=== PATIENT | female | born 1960 | race Caucasian/White ===

== ENCOUNTER 2017-03-04 16:54 | Inpatient (IN) | payer OTHER ==
[~2017-03-04] VITALS: Ht 158.8 cm; Wt 114.8 kg
[2017-03-04] MEDS ORDERED: METHYLPREDNISOLONE 125 MG VIAL IV STA (17:09)
[2017-03-04] MEDS ORDERED: LEVAQUIN 750MG / 150ML D5W IV STA (17:09)
[2017-03-04] MEDS ORDERED: SODIUM CHLORIDE 0.9% 1000ML 2,000 ML IV STA (17:09)
[2017-03-04] MEDS ORDERED: ALBUT/IPRATROP 3MG/0.5MG NEB 3 ML VIAL INH ONE (17:15)
[2017-03-04 18:16] LABS: BASO % 0.3 %; BASO ABS # 0.04 K/uL (0-0.2); COMPLETE YES; EOS % 1.3 %; HEMATOCRIT 42.7 % (37-47); IG% 0.2 %; LYMPH % 19.2 %; LYMPH ABS # 2.23 K/uL (1.2-3.4); MEAN CELL VOLUME 85.6 fL (80-100); MEAN CORPUSCULAR HEMOGLOBIN 27.7 pg (25-34); MEAN CORPUSCULAR HGB CONC 32.3 g/dl (32-36); MEAN PLATELET VOLUME 9.7 fL (7.4-10.4); MONO % 5.9 %; NEUT % 73.1 %; PLATELET COUNT 330 K/uL (130-400); RED BLOOD COUNT 4.99 M/uL (4.2-5.4); WHITE BLOOD COUNT 11.61 K/uL (4.8-10.8)
[2017-03-04 18:22] VITALS: PULSE 105; O2SAT 95
[2017-03-04 18:25] LABS: ALLEN TEST POS (POS); ARTERIAL BLD GAS O2 SATURATION 95.5 % (90-95); ARTERIAL BLOOD GAS BASE EXCESS 7.7 mEq/L (-9-1.8); ARTERIAL BLOOD GAS HCO3 35 mmol/L (19-24); ARTERIAL BLOOD GAS PO2 84 mm/Hg (80-95); ARTERIAL BLOOD GAS pH 7.39 (7.35-7.45); O2 ADMINISTRATION 3.5L
[2017-03-04 18:26] LABS: PARTIAL THROMBOPLASTIN RATIO 1.1; PROTHROMBIN TIME (PATIENT) 10.4 SECONDS (9.0-12.0)
[2017-03-04 18:35] LABS: ALT/SGPT 26 U/L (12-78); AST/SGOT 9 U/L (15-37); BLOOD UREA NITROGEN 14 mg/dl (7-18); BUN/CREATININE RATIO 21.6 (10-20); CALCIUM 9.3 mg/dl (8.5-10.1); CARBON DIOXIDE 37 mmol/L (21-32); CHLORIDE 96 mmol/L (98-107); CREATININE 0.63 mg/dl (0.60-1.20); GLUCOSE 103 mg/dl (70-99); POTASSIUM 4.2 mmol/L (3.5-5.1); SODIUM 139 mmol/L (136-145)
[2017-03-04 18:40] LABS: ALKALINE PHOSPHATASE 100 U/L (45-117); CKMB/CK RATIO 1.8 (0-3.0)
--- NOTE | 2017-03-04 19:05 | DIAGNOSTIC IMAGING REPORT ---
CHEST 2 VIEWS ROUTINE CLINICAL HISTORY: Dyspnea. Respiratory distress. COMPARISON STUDY: No previous studies for comparison. FINDINGS: There is no pneumothorax or pleural effusion. Linear mediastinal lucencies could reflect pneumomediastinum. There is mild asymmetric right lung airspace opacity. Mild to moderate enlargement of the cardiac silhouette is noted. IMPRESSION: 1. Mild asymmetric right lung airspace opacity. This favors an infectious process although asymmetric pulmonary edema could appear similar. 2. Linear mediastinal lucencies. This could reflect artifact or pneumomediastinum. A chest CT is recommended. 3. Mild to moderate enlargement of the cardiac silhouette. Electronically signed by: Cheng Joy M.D. 03/04/2017 7:03 PM Dictated Date/Time: 03/04/2017 6:58 PM
--- NOTE | 2017-03-04 19:54 | EMERGENCY ROOM VISIT NOTE ---
History Report prepared by Trevor: Jayesh Magallanes Under the Supervision of: Dr. Chacho Restrepo D.O. First contact with patient: 17:04 Chief Complaint: RESPIRATORY PROBLEMS Stated Complaint: SHORT OF BREATH, LOW PULSE OX, CAREWORK REFER History of Present Illness The patient is a 56 year old female who presents to the Emergency Room with complaints of persistent shortness of breath beginning four days ago. She reports she has been hospitalized twice before for pneumonia, and notes she currently feels like when she had pneumonia in the past. She has had a productive cough with dark green mucus, and notes having bursitis in her left hip for which she just received a cortisone shot, but denies having any recent fevers or nausea. The patient does not use supplemental oxygen at home. The patient notes the last time she was hospitalized for pneumonia, she was septic. She is a former smoker, and quit smoking 4 years ago. She notes she has diabetes. She notes she has not eaten in 12 hours because she is too tired. The patient denies having any history of heart failure. Source of History: patient Onset: 4 days ago Position: other (lungs) Quality: other (shortness of breath) Timing: other (persistent) Associated Symptoms: + cough, + fatigue, No fevers, No nausea Review of Systems See HPI for pertinent positives & negatives. A total of 10 systems reviewed and were otherwise negative. Past Medical & Surgical Medical Problems: (1) History of diabetes mellitus Family History No pertinent family history stated. Social History Smoking Status: Former Smoker Marital Status: Allergies Coded Allergies: Amoxicillin (Verified Allergy, Unknown, DIARRHEA, HIVES, 03/04/17) Clavulanic Acid (Verified Allergy, Unknown, DIARRHEA, HIVES, 03/04/17) Codeine (Verified Allergy, Unknown, HIVES, 03/04/17) Morphine (Verified Allergy, Unknown, hives, 03/04/17) Penicillins (Verified Allergy, Unknown, HIVES, 03/04/17) Physical Exam Vital Signs Date Time Temp Pulse Resp B/P Pulse Ox O2 Delivery O2 Flow Rate FiO2 03/04/17 19:00 102 20 124/83 93 Nasal Cannula 4.0 03/04/17 18:22 105 16 95 Nasal Cannula 3.5 03/04/17 18:16 104 20 112/72 95 Room Air 03/04/17 17:43 95 Nasal Cannula 4.0 03/04/17 17:39 95 Nasal Cannula 4.0 03/04/17 17:32 103 03/04/17 16:59 37.0 102 24 134/81 82 Room Air Physical Exam CONSTITUTIONAL/VITAL SIGNS: Reviewed / noted above. GENERAL: Non-toxic in appearance. INTEGUMENTARY: Warm, dry, and [place]. HEAD: Normocephalic. EYES: without scleral icterus or trauma. ENT/OROPHARYNX: clear and moist. LYMPHADENOPATHY/NECK: Is supple without lymphadenopathy or meningismus. RESPIRATORY: Lungs reveal diminished breath sounds bilaterally with expiratory wheezing. Mild increased work of breathing. CARDIOVASCULAR: Regular rate and rhythm. GI/ABDOMEN: Soft and nontender. No organomegaly or pulsatile mass. No rebound or guarding. Normal bowel sounds. EXTREMITIES: Warm and well perfused. BACK: No CVA tenderness. NEUROLOGICAL: Intact without focal deficits. PSYCHIATRIC: normal affect. MUSCULOSKELETAL: Normally developed with good muscle tone. TRIAGE NURSING DOCUMENTATION REVIEWED. Medical Decision & Procedures ER Provider Diagnostic Interpretation: Radiology results as stated below per my review and radiologist interpretation: CHEST 2 VIEWS ROUTINE FINDINGS: There is no pneumothorax or pleural effusion. Linear mediastinal lucencies could reflect pneumomediastinum. There is mild asymmetric right lung airspace opacity. Mild to moderate enlargement of the cardiac silhouette is noted. IMPRESSION: 1. Mild asymmetric right lung airspace opacity. This favors an infectious process although asymmetric pulmonary edema could appear similar. 2. Linear mediastinal lucencies. This could reflect artifact or pneumomediastinum. A chest CT is recommended. 3. Mild to moderate enlargement of the cardiac silhouette. Electronically signed by: Cheng Joy M.D. 03/04/2017 7:03 PM Dictated Date/Time: 03/04/2017 6:58 PM Laboratory Results 03/04/17 17:25 Red Blood Count 4.99, Mean Corpuscular Volume 85.6, Mean Corpuscular Hemoglobin 27.7, Mean Corpuscular Hemoglobin Concent 32.3, Mean Platelet Volume 9.7, Neutrophils (%) (Auto) 73.1, Lymphocytes (%) (Auto) 19.2, Monocytes (%) (Auto) 5.9, Eosinophils (%) (Auto) 1.3, Basophils (%) (Auto) 0.3, Neutrophils # (Auto) 8.49, Lymphocytes # (Auto) 2.23, Monocytes # (Auto) 0.68, Eosinophils # (Auto) 0.15, Basophils # (Auto) 0.04 03/04/17 17:25 Test 03/04/17 17:25 03/04/17 18:17 White Blood Count 11.61 K/uL (4.8-10.8) Red Blood Count 4.99 M/uL (4.2-5.4) Hemoglobin 13.8 g/dL (12.0-16.0) Hematocrit 42.7 % (37-47) Mean Corpuscular Volume 85.6 fL (80-100) Mean Corpuscular Hemoglobin 27.7 pg (25-34) Mean Corpuscular Hemoglobin Concent 32.3 g/dl (32-36) Platelet Count 330 K/uL (130-400) Mean Platelet Volume 9.7 fL (7.4-10.4) Neutrophils (%) (Auto) 73.1 % Lymphocytes (%) (Auto) 19.2 % Monocytes (%) (Auto) 5.9 % Eosinophils (%) (Auto) 1.3 % Basophils (%) (Auto) 0.3 % Neutrophils # (Auto) 8.49 K/uL (1.4-6.5) Lymphocytes # (Auto) 2.23 K/uL (1.2-3.4) Monocytes # (Auto) 0.68 K/uL (0.11-0.59) Eosinophils # (Auto) 0.15 K/uL (0-0.5) Basophils # (Auto) 0.04 K/uL (0-0.2) RDW Standard Deviation 45.7 fL (36.4-46.3) RDW Coefficient of Variation 14.6 % (11.5-14.5) Immature Granulocyte % (Auto) 0.2 % Immature Granulocyte # (Auto) 0.02 K/uL (0.00-0.02) Prothrombin Time 10.4 SECONDS (9.0-12.0) Prothromb Time International Ratio 1.0 (0.9-1.1) Activated Partial Thromboplast Time 27.6 SECONDS (21.0-31.0) Partial Thromboplastin Ratio 1.1 Anion Gap 6.0 mmol/L (3-11) Estimated GFR () 117.9 Estimated GFR (Non- 101.7 BUN/Creatinine Ratio 21.6 (10-20) Calcium Level 9.3 mg/dl (8.5-10.1) Total Bilirubin 0.4 mg/dl (0.2-1) Aspartate Amino Transf (AST/SGOT) 9 U/L (15-37) Alanine Aminotransferase (ALT/SGPT) 26 U/L (12-78) Alkaline Phosphatase 100 U/L (45-117) Total Creatine Kinase 55 U/L (26-192) Creatine Kinase MB 1.0 ng/ml (0.5-3.6) Creatine Kinase MB Ratio 1.8 (0-3.0) Troponin I < 0.015 ng/ml (0-0.045) Total Protein 6.7 gm/dl (6.4-8.2) Albumin 3.3 gm/dl (3.4-5.0) Globulin 3.4 gm/dl (2.5-4.0) Albumin/Globulin Ratio 1.0 (0.9-2) Arterial Blood pH 7.39 (7.35-7.45) Arterial Blood Partial Pressure CO2 59 mmHg (35-46) Arterial Blood Partial Pressure O2 84 mm/Hg (80-95) Arterial Blood HCO3 35 mmol/L (19-24) Arterial Blood Oxygen Saturation 95.5 % (90-95) Arterial Blood Base Excess 7.7 mEq/L (-9-1.8) Arterial Blood Gas Delivery 3.5L Hayden Test POS (POS) Laboratory results as stated above per my review. Medications Administered Medications (Trade) Dose Ordered Sig/Uriel Route Start Time Stop Time Status Last Admin Dose Admin Albuterol/ Ipratropium (Duoneb) 12 ml ONE ONCE INH 03/04/17 17:15 03/04/17 17:16 DC 03/04/17 18:15 12 ML Levofloxacin (Levaquin / D5W) 750 mg NOW STAT IV 03/04/17 17:09 03/04/17 17:11 DC 03/04/17 17:38 750 MG Methylprednisolone Sodium Succinate 125 mg 125 mg NOW STAT IV 03/04/17 17:09 03/04/17 17:11 DC 03/04/17 17:38 125 MG Sodium Chloride (Nss 1000ml) 2,000 ml @ 999 mls/hr Q2H1M STAT IV 03/04/17 17:09 03/04/17 19:09 DC 03/04/17 17:38 999 MLS/HR ECG Indication: SOB/dyspnea Rate (beats per minute): 100 Rhythm: sinus rhythm Findings: no acute ischemic change, no ectopy ED Course 1703: Previous medical records were reviewed. The patient was evaluated in room A10. A complete history and physical examination was performed. 1708: Ordered NSS 2,000 ml @ 999 mls/hr IV, Solu-Medrol IV 125 mg IV, and Levofloxacin 750 mg IV. 1714: Ordered Duoneb 12 ml INH. 1929: Discussed the patient's case with Dr. Patel. The patient will be evaluated for further treatment and disposition. Medical Decision the differential was considered includes acute myocardial infarction, acute coronary syndrome, myocarditis, pericarditis, pericardial effusions /tamponad, esophageal perforation, pulmonary embolism, pneumonia, pneumothorax, cardiomyopathy, congestive heart, anemia , COPD/asthma exacerbation. This is a 56-year-old female who presents to the ED with a chief complaint of shortness of breath. The patient states that she has had cough and shortness of breath for the past 4 days. She has been coughing up some dark green mucus. She states that it feels similar to when she has had pneumonia. The patient was seen at [facility] and sent here for further evaluation. Pulse ox here was 86% on room air. The patient's exam reveals mild increased work of breathing as well as diminished breath sounds bilaterally and some expiratory wheezing. She is not febrile. Vital signs are otherwise stable. Chest x-ray suggests a right-sided pneumonia. White blood cell count was 11.6. Other blood work was unremarkable. ABG reveals a normal acid base status. There is some CO2 retention. Oxygen saturations were adequate on 3.5 L. The patient was treated with a one hour nebulizer treatment as well as IV Levaquin. She was given IV steroids. She was given some IV fluids. Clinically there is not congestive heart failure or pulmonary edema. I spoke with the hospice, who will see the patient for further inpatient evaluation. Consults Time Called: 1919 Consulting Physician: Bhaskar Moulton Returned Call: [phone] Discussed the patient's case with Dr. Patel. The patient will be evaluated for further treatment and disposition. Impression Primary Impression: PNA (pneumonia) Additional Impressions: COPD (chronic obstructive pulmonary disease) Hypoxia Scribe Attestation The scribe's documentation has been prepared under my direction and personally reviewed by me in its entirety. I confirm that the note above accurately reflects all work, treatment, procedures, and medical decision making performed by me. Departure Information Dispostion Being Evaluated By Hospitalist Referrals Melanie Leavitt D.O. (PCP) Patient Instructions [facility] Problem Qualifiers
[2017-03-04] MEDS ORDERED: INSU70IN2 SC (20:09)
[2017-03-04] MEDS ORDERED: DULO-24 PO (20:09)
[2017-03-04] MEDS ORDERED: DULO60CA44 PO (20:09)
[2017-03-04] MEDS ORDERED: CYCL5TAB PO (20:10)
[2017-03-04] MEDS ORDERED: CLON2TAB3 PO (20:10)
--- NOTE | 2017-03-04 20:41 | History and Physical ---
History & Physical Date & Time of Service: Mar 04, 2017 at 20:11 Chief Complaint: Short Of Breath, Low Pulse Ox, Carework Refer Primary Care Physician: Melanie Leavitt D.O. History of Present Illness Source: patient, spouse, clinic records, hospital records 56 year old female with PMH of DM Type 2, fibromyalgia, Depression was sent to the ER after seeing her PCP today for worsening SOB. Pt said that for the last few days she has been having SOB associated with dark greenish productive cough. Pt said that she does have some chest wall tenderness when coughing. She said that the last she had pneumonia was 2 yrs ago. she denies any palpitation, dizziness, diarrhea, fever and chills. she quits smoking about 4 yrs ago. Past Medical/Surgical History DM Type 2 Fibromyalgia Obesity depression PTSD Social History Smoking Status: Former Smoker Alcohol Use: none Drug Use: none Marital Status: Allergies Coded Allergies: Amoxicillin (Verified Allergy, Unknown, DIARRHEA, HIVES, 03/04/17) Clavulanic Acid (Verified Allergy, Unknown, DIARRHEA, HIVES, 03/04/17) Codeine (Verified Allergy, Unknown, HIVES, 03/04/17) Morphine (Verified Allergy, Unknown, hives, 03/04/17) Penicillins (Verified Allergy, Unknown, HIVES, 03/04/17) Home Medications Scheduled Albuterol Sulfate (Proair Respiclick), 2 PUFF INH QID Aripiprazole (Abilify), 1 TAB PO QAM Beclomethasone Dip (Qvar), 2 PUFF INH BID Cyclobenzaprine Hcl (Flexeril), 10 MG PO HS Duloxetine HCl (Cymbalta), 80 MG PO QAM Duloxetine Hcl (Cymbalta), 60 MG PO HS Insulin Human Isophan/Regular (Novolin 70/30), 90 UNITS SC BID Lamotrigine (Lamictal), 50 MG PO DAILY Lisinopril (Lisinopril), 20 MG PO DAILY Metformin HCl (Metformin HCl), 1,000 MG PO BID Pioglitazone (Actos), 0.5 TAB PO DAILY Pravastatin (Pravachol ), 40 MG PO DAILY Scheduled PRN Clonazepam (Klonopin), 1 MG PO HS PRN for Insomnia Cyproheptadine Hcl (Periactin), 4 MG PO TID PRN for Agitation Review of Systems Constitutional: + fatigue, No fever, No sweats Eyes: No eye pain, No worsening of vision ENT: No nasal symptoms, No sore throat Respiratory: + cough, + shortness of breath, + sputum, + wheezing Cardiovascular: No claudication, No edema, No palpitations Abdomen: No diarrhea, No nausea, No pain, No vomiting Musculoskeletal: + joint pain, No calf pain Genitourinary - Female: No dysuria, No urinary frequency, No urinary urgency Neurologic: No memory loss, No paralysis Psychiatric: No substance abuse Hematologic / Lymphatic: No night sweats Integumentary: No itch, No rash Physical Exam Vital Signs Date Time Temp Pulse Resp B/P Pulse Ox O2 Delivery O2 Flow Rate FiO2 03/04/17 19:00 102 20 124/83 93 Nasal Cannula 4.0 03/04/17 18:22 105 16 95 Nasal Cannula 3.5 03/04/17 18:16 104 20 112/72 95 Room Air 03/04/17 17:43 95 Nasal Cannula 4.0 03/04/17 17:39 95 Nasal Cannula 4.0 03/04/17 17:32 103 03/04/17 16:59 37.0 102 24 134/81 82 Room Air General Appearance: WD/WN, no apparent distress Head: normocephalic, atraumatic Eyes: PERRL, EOMI, sclerae normal ENT: normal ENT inspection, hearing grossly normal Neck: supple, no JVD Respiratory/Chest: no respiratory distress, no accessory muscle use, + wheezing Cardiovascular: no JVD, no murmur, + tachycardia Abdomen/GI: normal bowel sounds, non tender, soft Back: normal inspection, no CVA tenderness Extremities/Musculoskelatal: normal inspection, no calf tenderness, no pedal edema Neurologic/Psych: no motor/sensory deficits, alert, normal mood/affect, oriented x 3 Skin: normal color, warm/dry, no rash Diagnostics Laboratory Results Results Past 24 Hours Test 03/04/17 17:25 03/04/17 18:17 Range/Units White Blood Count 11.61 4.8-10.8 K/uL Red Blood Count 4.99 4.2-5.4 M/uL Hemoglobin 13.8 12.0-16.0 g/dL Hematocrit 42.7 37-47 % Mean Corpuscular Volume 85.6 80-100 fL Mean Corpuscular Hemoglobin 27.7 25-34 pg Mean Corpuscular Hemoglobin Concent 32.3 32-36 g/dl Platelet Count 330 130-400 K/uL Mean Platelet Volume 9.7 7.4-10.4 fL Neutrophils (%) (Auto) 73.1 % Lymphocytes (%) (Auto) 19.2 % Monocytes (%) (Auto) 5.9 % Eosinophils (%) (Auto) 1.3 % Basophils (%) (Auto) 0.3 % Neutrophils # (Auto) 8.49 1.4-6.5 K/uL Lymphocytes # (Auto) 2.23 1.2-3.4 K/uL Monocytes # (Auto) 0.68 0.11-0.59 K/uL Eosinophils # (Auto) 0.15 0-0.5 K/uL Basophils # (Auto) 0.04 0-0.2 K/uL RDW Standard Deviation 45.7 36.4-46.3 fL RDW Coefficient of Variation 14.6 11.5-14.5 % Immature Granulocyte % (Auto) 0.2 % Immature Granulocyte # (Auto) 0.02 0.00-0.02 K/uL Prothrombin Time 10.4 9.0-12.0 SECONDS Prothromb Time International Ratio 1.0 0.9-1.1 Activated Partial Thromboplast Time 27.6 21.0-31.0 SECONDS Partial Thromboplastin Ratio 1.1 Sodium Level 139 136-145 mmol/L Potassium Level 4.2 3.5-5.1 mmol/L Chloride Level 96 98-107 mmol/L Carbon Dioxide Level 37 21-32 mmol/L Anion Gap 6.0 3-11 mmol/L Blood Urea Nitrogen 14 7-18 mg/dl Creatinine 0.63 0.60-1.20 mg/dl Estimated GFR () 117.9 Estimated GFR (Non- 101.7 BUN/Creatinine Ratio 21.6 10-20 Random Glucose 103 70-99 mg/dl Calcium Level 9.3 8.5-10.1 mg/dl Total Bilirubin 0.4 0.2-1 mg/dl Aspartate Amino Transf (AST/SGOT) 9 15-37 U/L Alanine Aminotransferase (ALT/SGPT) 26 12-78 U/L Alkaline Phosphatase 100 45-117 U/L Total Creatine Kinase 55 26-192 U/L Creatine Kinase MB 1.0 0.5-3.6 ng/ml Creatine Kinase MB Ratio 1.8 0-3.0 Troponin I < 0.015 0-0.045 ng/ml Total Protein 6.7 6.4-8.2 gm/dl Albumin 3.3 3.4-5.0 gm/dl Globulin 3.4 2.5-4.0 gm/dl Albumin/Globulin Ratio 1.0 0.9-2 Arterial Blood pH 7.39 7.35-7.45 Arterial Blood Partial Pressure CO2 59 35-46 mmHg Arterial Blood Partial Pressure O2 84 80-95 mm/Hg Arterial Blood HCO3 35 19-24 mmol/L Arterial Blood Oxygen Saturation 95.5 90-95 % Arterial Blood Base Excess 7.7 -9-1.8 mEq/L Arterial Blood Gas Delivery 3.5L Hayden Test POS POS Microbiology Results 03/04/17 Blood Culture, Received Pending 03/04/17 Blood Culture, Received Pending Diagnostic Radiology CHEST 2 VIEWS ROUTINE CLINICAL HISTORY: Dyspnea. Respiratory distress. COMPARISON STUDY: No previous studies for comparison. FINDINGS: There is no pneumothorax or pleural effusion. Linear mediastinal lucencies could reflect pneumomediastinum. There is mild asymmetric right lung airspace opacity. Mild to moderate enlargement of the cardiac silhouette is noted. IMPRESSION: 1. Mild asymmetric right lung airspace opacity. This favors an infectious process although asymmetric pulmonary edema could appear similar. 2. Linear mediastinal lucencies. This could reflect artifact or pneumomediastinum. A chest CT is recommended. 3. Mild to moderate enlargement of the cardiac silhouette. Electronically signed by: Cheng Joy M.D. 03/04/2017 7:03 PM Impression Assessment and Plan Worsening SOB associated with dark greenish productive cough possible related to pneumonia vs bronchitis CXR showed Mild asymmetric right lung airspace opacity Received Levaquin 750 mg and Solumedrol in The ER will continue levaquin 750 mg IV will start prednisone 40 mg BID continue oxygen supplement Duoneb for respiratory treatment adding Guaifenesin for the cough will check for flu DM Type 2 Recent Hba1c 10.5 (12/23/16) Uncontrolled DM will hold oral med On NPH 70/30 Insulin coverage pharmacy consult for glycemic control Depression continue current home meds stable Fibromyalgia continue Cymbalta and Flexeril Insomnia Continue clonazepam prn DVT px on Lovenox subq CODE STATUS FULL CODE Level of Care Med/Surg Resuscitation Status FULL RESUSCITATION VTE Prophylaxis VTE Risk Assessment Done? Y/N: Yes Risk Level: Moderate Given or contraindicated: Enoxaparin (Lovenox)SQ Additional Copies To Melanie Leavitt D.O.
[2017-03-04 20:45] VITALS: BP 125/76; PULSE 108; TEMP 36.3; O2SAT 94; Ht 158.8 cm; Wt 114.8 kg
[2017-03-04] MEDS ORDERED: CLONAZEPAM 1 MG TAB PO PRN (21:00)
[2017-03-04] MEDS ORDERED: CYPR4TAB31 PO (21:02)
[2017-03-04] MEDS ORDERED: PRAV20TA PO (21:03)
[2017-03-04] MEDS ORDERED: ARIP30TA3 PO (21:04)
[2017-03-04] MEDS ORDERED: ACT30 PO (21:05)
[2017-03-04] MEDS ORDERED: LSN20 PO (21:07)
[2017-03-04] MEDS ORDERED: QVRINH80 INH (21:07)
[2017-03-04] MEDS ORDERED: ALBU18002 INH (21:08)
[2017-03-04] MEDS ORDERED: GLC500 PO (21:09)
[2017-03-04] MEDS ORDERED: LAMO25TA PO (21:10)
[2017-03-04] MEDS ORDERED: GLUCAGON FOR INJ 1 MG VIAL SQ PRN (21:30)
[2017-03-04] MEDS ORDERED: GLUCOSE 40% GEL 15 GM TUBE PO PRN (21:30)
[2017-03-04] MEDS ORDERED: GLUCOSE 10 TABS/TUBE PO PRN (21:30)
[2017-03-04] MEDS ORDERED: DEXTROSE 50% 50 ML SYR IV PRN (21:30)
[2017-03-04] MEDS ORDERED: PHARMACY GLYCEMIC MGMT CONSULT PRN (21:35)
--- NOTE | 2017-03-04 22:04 | Pharmacy Progress Note ---
Glycemic Control Intl Consult Date of Service Mar 04, 2017. Scope Glycemic Pharmacist consulted by Dr Patel on 03/04/17 for glycemic control and to write orders per [facility] inpatient glycemic control protocol Objective Accuchecks BSG (last 24hrs): Test 03/04/17 17:25 Random Glucose 103 mg/dl (70-99) Laboratory Data (last 24hrs) Test 03/04/17 17:25 Anion Gap 6.0 mmol/L BUN/Creatinine Ratio 21.6 Blood Urea Nitrogen 14 mg/dl Creatinine 0.63 mg/dl Potassium Level 4.2 mmol/L Sodium Level 139 mmol/L White Blood Count 11.61 K/uL Red Blood Count 4.99 M/uL Hemoglobin 13.8 g/dL Hematocrit 42.7 % Mean Corpuscular Volume 85.6 fL Mean Corpuscular Hemoglobin 27.7 pg Mean Corpuscular Hemoglobin Concent 32.3 g/dl Platelet Count 330 K/uL Mean Platelet Volume 9.7 fL Neutrophils (%) (Auto) 73.1 % Lymphocytes (%) (Auto) 19.2 % Monocytes (%) (Auto) 5.9 % Eosinophils (%) (Auto) 1.3 % Basophils (%) (Auto) 0.3 % Neutrophils # (Auto) 8.49 K/uL Lymphocytes # (Auto) 2.23 K/uL Monocytes # (Auto) 0.68 K/uL Eosinophils # (Auto) 0.15 K/uL Basophils # (Auto) 0.04 K/uL Recent Pertinent Medications Outpatient Anti-diabetic Regimen: * Supposedly, but cannot confirm as patient is a poor historian and unable to find records to confirm: * Novolin 70/30 90 units BID * Metformin 1000mg BID * Actos 15mg po daily * A1c = 10.5 % (12/23/16) per H&P Risk Factors for Insulin Resistance: * Steroids: Prednisone 40mg po BID * Infection: Levaquin 750mg IV q24 * Diet: Type II DM Assessment & Plan ASSESSMENT: * ADA & AACE recommend a goal blood sugar range 140-180 mg/dl for the majority of critically ill & non-critically ill patients. However, more stringent targets may be selected in individual cases. * Patient is a poor historian, unable to obtain reliable information from her and also unable to find records. She is supposedly on a very high dose of insulin as an outpatient. * Blood glucose of 228 was taken after patient just finished eating her dinner. It was previously 103 earlier this afternoon. Unable to safely initiate basal insulin at this time. Therefore, will frequently check blood glucose and correct with Novolog for now only with weight-based dosing. PLAN FOR INPATIENT GLYCEMIC CONTROL: * Correctional Insulin with NOVOLOG / REGULAR per scale ACHS or Q6hrs while NPO * Goal Range: Low 140 mg/dL - High 180 mg/dL * Correction Factor: 20 mg/dL/unit * Nutritional / Prandial insulin per carb ratio of 1 unit per 7 grams CHO consumed * Please note that the plan above was derived based on current level of insulin resistance and hospital stress. These recommendations are appropriate for inpatient admission only. Plan of care upon discharge will need to be reassessed to avoid potential outpatient hypo/hyperglycemia. Thank you.
[2017-03-04] MEDS: DULOXETINE HCL 60 MG CAP PO SCH ×2 (22:14→23:56)
[2017-03-04] MEDS: CYCLOBENZAPRINE HCL 10 MG TAB PO SCH ×2 (22:15→23:57)
[2017-03-04] MEDS: PATIENT'S HEIGHT AND/OR WEIGHT NEEDED SCH ×2 (22:16→23:52)
[2017-03-04] MEDS: BECLOMETHASONE DIP HFA 80 MCG 8.7G INH INH SCH (22:16)
[2017-03-04] MEDS: INSULIN ASPART 100 UNITS/ML 3 ML PEN SC SCH (22:18)
[2017-03-04] MEDS: CLONAZEPAM 1 MG TAB PO PRN (23:07)
[2017-03-04 23:08] VITALS: PULSE 103; O2SAT 95
[2017-03-04] MEDS: ALBUT/IPRATROP 3MG/0.5MG NEB 3 ML VIAL INH SCH (23:08)
[2017-03-04 23:45] VITALS: BP 148/90; PULSE 109; TEMP 37; O2SAT 93
[2017-03-05] VITALS (9 sets, daily range): BP systolic 142–148; BP diastolic 78–82; PULSE 103–110; TEMP 36.7–36.8; O2SAT 91–95
[2017-03-05 00:40] LABS: INFLUENZA A PCR Neg for Influ A (NEG); INFLUENZA B PCR Neg for Influ B (NEG)
[2017-03-05] MEDS ORDERED: INSULIN ASPART 100 UNITS/ML 3 ML PEN SC SCH (03:00)
[2017-03-05 06:50] LABS: HEMATOCRIT 43.8 % (37-47); MEAN CELL VOLUME 87.1 fL (80-100); MEAN CORPUSCULAR HEMOGLOBIN 28.6 pg (25-34); MEAN CORPUSCULAR HGB CONC 32.9 g/dl (32-36); MEAN PLATELET VOLUME 10.2 fL (7.4-10.4); PLATELET COUNT 330 K/uL (130-400); RED BLOOD COUNT 5.03 M/uL (4.2-5.4); WHITE BLOOD COUNT 12.46 K/uL (4.8-10.8)
[2017-03-05 07:26] LABS: BUN/CREATININE RATIO 19.9 (10-20); CALCIUM 9.2 mg/dl (8.5-10.1); CREATININE 0.75 mg/dl (0.60-1.20); POTASSIUM 4.6 mmol/L (3.5-5.1)
[2017-03-05] MEDS: ALBUT/IPRATROP 3MG/0.5MG NEB 3 ML VIAL INH SCH ×4 (07:38→19:30)
[2017-03-05] MEDS ORDERED: INSULIN HUMAN 70% NPH/30% REGULAR SC SCH (08:00)
[2017-03-05] MEDS ORDERED: PNEUMOCOCCAL ADMINISTRATION CHARGE ONE (08:00)
[2017-03-05] MEDS ORDERED: PNEUMOCOCCAL POLYSACCHARIDES 25 MCG/0.5 ML VIAL/SYR IM. ONE (08:00)
[2017-03-05] MEDS: DULOXETINE HCL 20 MG CAP PO SCH (08:47)
[2017-03-05] MEDS: PRAVASTATIN SOD 20 MG TAB PO SCH (08:48)
[2017-03-05] MEDS: GUAIFENESIN 200 MG TAB PO PRN (08:49)
[2017-03-05] MEDS: ENOXAPARIN 40 MG/0.4 ML SYR SQ SCH (08:49)
[2017-03-05] MEDS: ARIPIprazole TAB 15 MG TAB PO SCH (08:50)
[2017-03-05] MEDS: LISINOPRIL 20 MG TAB PO SCH (08:50)
[2017-03-05] MEDS: BECLOMETHASONE DIP HFA 80 MCG 8.7G INH INH SCH ×2 (08:51→20:11)
[2017-03-05] MEDS: INSULIN ASPART 100 UNITS/ML 3 ML PEN SC SCH ×5 (09:01→23:47)
[2017-03-05] MEDS: INSULIN GLARGINE SOLOSTAR 100 UNITS/ML 3 ML PEN SC SCH ×2 (09:02→20:17)
[2017-03-05] MEDS ORDERED: INSULIN REGULAR 6 UNITS in SYRINGE 5.94 ML IV SCH (12:00)
[2017-03-05] MEDS ORDERED: INSULIN GLARGINE SOLOSTAR 100 UNITS/ML 3 ML PEN SC SCH (12:00)
--- NOTE | 2017-03-05 12:17 | Pharmacy Progress Note ---
Glycemic Control: Progress Nt Date of Service Mar 05, 2017. Scope Glycemic Pharmacist consulted by Dr Patel on 03/04/17 for glycemic control and to write orders per [facility] inpatient glycemic control protocol. Objective Accuchecks BSG (last 24hrs): Test 03/04/17 17:25 03/04/17 21:46 03/05/17 03:21 03/05/17 06:20 Random Glucose 103 mg/dl (70-99) 297 mg/dl (70-99) Bedside Glucose 228 mg/dl (70-90) 271 mg/dl (70-90) Test 03/05/17 08:02 03/05/17 11:34 Bedside Glucose 294 mg/dl (70-90) 368 mg/dl (70-90) Laboratory Data (last 24hrs) Test 03/04/17 17:25 03/05/17 06:20 Anion Gap 6.0 mmol/L 7.0 mmol/L BUN/Creatinine Ratio 21.6 19.9 Blood Urea Nitrogen 14 mg/dl 15 mg/dl Creatinine 0.63 mg/dl 0.75 mg/dl Potassium Level 4.2 mmol/L 4.6 mmol/L Sodium Level 139 mmol/L 138 mmol/L White Blood Count 11.61 K/uL 12.46 K/uL Red Blood Count 4.99 M/uL Hemoglobin 13.8 g/dL Hematocrit 42.7 % Mean Corpuscular Volume 85.6 fL Mean Corpuscular Hemoglobin 27.7 pg Mean Corpuscular Hemoglobin Concent 32.3 g/dl Platelet Count 330 K/uL Mean Platelet Volume 9.7 fL Neutrophils (%) (Auto) 73.1 % Lymphocytes (%) (Auto) 19.2 % Monocytes (%) (Auto) 5.9 % Eosinophils (%) (Auto) 1.3 % Basophils (%) (Auto) 0.3 % Neutrophils # (Auto) 8.49 K/uL Lymphocytes # (Auto) 2.23 K/uL Monocytes # (Auto) 0.68 K/uL Eosinophils # (Auto) 0.15 K/uL Basophils # (Auto) 0.04 K/uL Recent Pertinent Medications Outpatient Anti-diabetic Regimen: * Novolin 70/30 mixed insulin * 90 units SQ BID with meals * Metformin 1000mg PO BID * Actos 15mg PO daily * A1c = 10.5 % (12/23/16) per H&P The patient is currently receiving: * Basal insulin: none ordered * Correctional Insulin: NovoLog Correction per scale AC+HS+03 Goal Range: Low 140 mg/dL - High 180 mg/dL Correction Factor: 20 mg/dL/unit * Prandial insulin: Per carb ratio of 1 unit per 7 grams CHO consumed * Oral Agents: held on admission Risk Factors for Insulin Resistance: * Steroids: Solu-Medrol 125mg IV x1 dose in ED on 03/04, then Prednisone 40mg PO BID * Infection: Levofloxacin IV - day #2 * Diet: T2DM Assessment & Plan ASSESSMENT: * ADA & AACE recommend a goal blood sugar range 140-180 mg/dl for the majority of critically ill & non-critically ill patients. However, more stringent targets may be selected in individual cases. 03/04/17 * Patient is a poor historian, unable to obtain reliable information from her and also unable to find records. She is supposedly on a very high dose of insulin as an outpatient. * Blood glucose of 228 was taken after patient just finished eating her dinner. It was previously 103 earlier this afternoon. Unable to safely initiate basal insulin at this time. Therefore, will frequently check blood glucose and correct with NovoLog for now only with weight-based dosing. 03/05/17 * Ms Reyes has become hyperglycemic secondary to basal deficiency, below optimal bolus insulin dosing, and Solu-Medrol dose in ED 03/04 * Insulin doses confirmed with Epic. * A1c shows poor glycemic control for patient's age * Will need to initiate basal insulin with Lantus. Base dosing off of total daily outpatient dose of ~180u/day * For acute severe hyperglycemia at pre-lunch Accu-check * give 0.05u/kg IV insulin bolus to augment NovoLog SQ * tighten NovoLog parameters - add overnight Accu-checks until hyperglycemia resolves * Titrate insulin regimen with each step down in steroid therapy PLAN FOR INPATIENT GLYCEMIC CONTROL: * Lantus 30 units SQ x1 given this AM * Give additional 10 units SQ x1 dose with lunch * Begin Lantus SQ BID this evening * 20 units if BSG Below 100mg/dL * 40 units if BSG is 100-140mg/dL * 45 units if BSG is above 140mg/dL * NovoLog SQ AC and HS * Add Accu-checks overnight at 00:00 and 04:00 * Goal Range: Low 140 mg/dL - High 180 mg/dL * Correction Factor: 12 mg/dL/unit * Carb ratio of 1 unit per 4 grams CHO consume * IV regular insulin 6 units X1 dose with lunch * A1c added to discharge instructions RECOMMENDATIONS FOR DISCHARGE: * awaited * Please note that the plan above was derived based on current level of insulin resistance and hospital stress. These recommendations are appropriate for inpatient admission only. Plan of care upon discharge will need to be reassessed to avoid potential outpatient hypo/hyperglycemia. Thank you.
--- NOTE | 2017-03-05 15:24 | Progress Note ---
Internal Med Progress Note Date of Service: Mar 05, 2017. Provider Documentation: SUBJECTIVE: resting comfortably still has sob and cough but says better than yesterday has left hip pain from bursitis afebrile no chest pain OBJECTIVE: Vital Signs-as noted below Exam: General-alert and awake and oriented. Morbidly obese ENT-normal hearing Neck-no neck masses Lungs-cta b/l no wheezing or crackles Heart-s1 and s2 heard regular rate and rhythm no murmurs Abdomen-soft bowel sounds present non tender no distension Extremities- no erythema no edema Neuro-alert and awake moves extremities Lab data as noted below. ASSESSMENT & PLAN: Worsening SOB Pneumonia on Levaquin and nbs hx of smoking has some wheezing on po steroids improving 'will continu same DM Type 2 Recent Hba1c 10.5 (12/23/16) Uncontrolled DM will hold oral med On NPH 70/30 Insulin coverage close monitor while on steroids pharmacy consult for glycemic control and appreciate inputs Left hip bursitis recent steroid shot didn't helped will consult ortho for any further recommendations. Depression continue current home meds stable Fibromyalgia continue Cymbalta and Flexeril Insomnia Continue clonazepam prn DVT px on Lovenox subq CODE STATUS FULL CODE DISPOSITION to be determined Vital Signs: Date Time Temp Pulse Resp B/P Pulse Ox O2 Delivery O2 Flow Rate FiO2 03/05/17 11:58 108 16 92 Nasal Cannula 3.0 03/05/17 08:00 92 Nasal Cannula 3.5 03/05/17 07:45 36.8 104 22 148/82 93 Nasal Cannula 3.5 03/05/17 07:38 103 16 93 Nasal Cannula 3.0 03/05/17 00:00 94 Nasal Cannula 4.0 03/04/17 23:45 37.0 109 20 148/90 93 3.0 03/04/17 23:08 103 20 95 Nasal Cannula 2.0 03/04/17 20:45 36.3 108 20 125/76 94 Nasal Cannula 4.0 03/04/17 20:33 106 15 132/83 93 03/04/17 19:00 102 20 124/83 93 Nasal Cannula 4.0 03/04/17 18:22 105 16 95 Nasal Cannula 3.5 03/04/17 18:16 104 20 112/72 95 Room Air 03/04/17 17:43 95 Nasal Cannula 4.0 03/04/17 17:39 95 Nasal Cannula 4.0 03/04/17 17:32 103 03/04/17 16:59 37.0 102 24 134/81 82 Room Air Lab Results: Results Past 24 Hours Test 03/04/17 17:25 03/04/17 18:17 03/04/17 21:46 03/04/17 22:35 Range/Units White Blood Count 11.61 4.8-10.8 K/uL Red Blood Count 4.99 4.2-5.4 M/uL Hemoglobin 13.8 12.0-16.0 g/dL Hematocrit 42.7 37-47 % Mean Corpuscular Volume 85.6 80-100 fL Mean Corpuscular Hemoglobin 27.7 25-34 pg Mean Corpuscular Hemoglobin Concent 32.3 32-36 g/dl Platelet Count 330 130-400 K/uL Mean Platelet Volume 9.7 7.4-10.4 fL Neutrophils (%) (Auto) 73.1 % Lymphocytes (%) (Auto) 19.2 % Monocytes (%) (Auto) 5.9 % Eosinophils (%) (Auto) 1.3 % Basophils (%) (Auto) 0.3 % Neutrophils # (Auto) 8.49 1.4-6.5 K/uL Lymphocytes # (Auto) 2.23 1.2-3.4 K/uL Monocytes # (Auto) 0.68 0.11-0.59 K/uL Eosinophils # (Auto) 0.15 0-0.5 K/uL Basophils # (Auto) 0.04 0-0.2 K/uL RDW Standard Deviation 45.7 36.4-46.3 fL RDW Coefficient of Variation 14.6 11.5-14.5 % Immature Granulocyte % (Auto) 0.2 % Immature Granulocyte # (Auto) 0.02 0.00-0.02 K/uL Prothrombin Time 10.4 9.0-12.0 SECONDS Prothromb Time International Ratio 1.0 0.9-1.1 Activated Partial Thromboplast Time 27.6 21.0-31.0 SECONDS Partial Thromboplastin Ratio 1.1 Sodium Level 139 136-145 mmol/L Potassium Level 4.2 3.5-5.1 mmol/L Chloride Level 96 98-107 mmol/L Carbon Dioxide Level 37 21-32 mmol/L Anion Gap 6.0 3-11 mmol/L Blood Urea Nitrogen 14 7-18 mg/dl Creatinine 0.63 0.60-1.20 mg/dl Estimated GFR () 117.9 Estimated GFR (Non- 101.7 BUN/Creatinine Ratio 21.6 10-20 Random Glucose 103 70-99 mg/dl Calcium Level 9.3 8.5-10.1 mg/dl Total Bilirubin 0.4 0.2-1 mg/dl Aspartate Amino Transf (AST/SGOT) 9 15-37 U/L Alanine Aminotransferase (ALT/SGPT) 26 12-78 U/L Alkaline Phosphatase 100 45-117 U/L Total Creatine Kinase 55 26-192 U/L Creatine Kinase MB 1.0 0.5-3.6 ng/ml Creatine Kinase MB Ratio 1.8 0-3.0 Troponin I < 0.015 0-0.045 ng/ml Total Protein 6.7 6.4-8.2 gm/dl Albumin 3.3 3.4-5.0 gm/dl Globulin 3.4 2.5-4.0 gm/dl Albumin/Globulin Ratio 1.0 0.9-2 Arterial Blood pH 7.39 7.35-7.45 Arterial Blood Partial Pressure CO2 59 35-46 mmHg Arterial Blood Partial Pressure O2 84 80-95 mm/Hg Arterial Blood HCO3 35 19-24 mmol/L Arterial Blood Oxygen Saturation 95.5 90-95 % Arterial Blood Base Excess 7.7 -9-1.8 mEq/L Arterial Blood Gas Delivery 3.5L Hayden Test POS POS Bedside Glucose 228 70-90 mg/dl Influenza Type A (RT-PCR) Neg for Influ A NEG Influenza Type B (RT-PCR) Neg for Influ B NEG Test 03/04/17 23:54 03/05/17 03:21 03/05/17 06:20 03/05/17 08:02 Range/Units Creatine Kinase MB 1.1 0.5-3.6 ng/ml Creatine Kinase MB Ratio 0-3.0 Troponin I < 0.015 0-0.045 ng/ml Bedside Glucose 271 294 70-90 mg/dl White Blood Count 12.46 4.8-10.8 K/uL Red Blood Count 5.03 4.2-5.4 M/uL Hemoglobin 14.4 12.0-16.0 g/dL Hematocrit 43.8 37-47 % Mean Corpuscular Volume 87.1 80-100 fL Mean Corpuscular Hemoglobin 28.6 25-34 pg Mean Corpuscular Hemoglobin Concent 32.9 32-36 g/dl RDW Standard Deviation 47.7 36.4-46.3 fL RDW Coefficient of Variation 14.9 11.5-14.5 % Platelet Count 330 130-400 K/uL Mean Platelet Volume 10.2 7.4-10.4 fL Sodium Level 138 136-145 mmol/L Potassium Level 4.6 3.5-5.1 mmol/L Chloride Level 101 98-107 mmol/L Carbon Dioxide Level 30 21-32 mmol/L Anion Gap 7.0 3-11 mmol/L Blood Urea Nitrogen 15 7-18 mg/dl Creatinine 0.75 0.60-1.20 mg/dl Est Creatinine Clear Calc Drug Dose 103.8 ml/min Estimated GFR () 104.7 Estimated GFR (Non- 90.4 BUN/Creatinine Ratio 19.9 10-20 Random Glucose 297 70-99 mg/dl Calcium Level 9.2 8.5-10.1 mg/dl Test 03/05/17 11:34 Range/Units Bedside Glucose 368 70-90 mg/dl Microbiology Results 03/04/17 Blood Culture, Received Pending 03/04/17 Blood Culture, Received Pending 03/05/17 Gram Stain - Final, Resulted 03/05/17 Sputum Culture, Resulted Pending
[2017-03-05] MEDS: LEVOFLOXACIN / D5W 750 MG in PREMIXED IN D5W 150 ML IV SCH (18:22)
[2017-03-05] MEDS: CYCLOBENZAPRINE HCL 10 MG TAB PO SCH (21:40)
[2017-03-05] MEDS: DULOXETINE HCL 60 MG CAP PO SCH (21:41)
[2017-03-05] MEDS ORDERED: CLONAZEPAM 1 MG TAB PO PRN (22:00)
[2017-03-05] MEDS: CLONAZEPAM 1 MG TAB PO PRN (23:18)
[2017-03-05] MEDS: CYPROHEPTADINE HCL 4 MG TAB PO PRN (23:19)
[2017-03-06] VITALS (8 sets, daily range): BP systolic 106–127; BP diastolic 64–79; PULSE 87–114; TEMP 36.4–36.8; O2SAT 90–96
[2017-03-06] MEDS: INSULIN ASPART 100 UNITS/ML 3 ML PEN SC SCH ×6 (04:43→23:43)
[2017-03-06] MEDS: PRAVASTATIN SOD 20 MG TAB PO SCH (07:46)
[2017-03-06] MEDS: LISINOPRIL 20 MG TAB PO SCH (07:46)
[2017-03-06] MEDS: DULOXETINE HCL 20 MG CAP PO SCH (07:46)
[2017-03-06] MEDS: ARIPIprazole TAB 15 MG TAB PO SCH (07:46)
[2017-03-06] MEDS: BECLOMETHASONE DIP HFA 80 MCG 8.7G INH INH SCH ×2 (07:47→21:45)
[2017-03-06] MEDS: GUAIFENESIN 200 MG TAB PO PRN (07:47)
[2017-03-06] MEDS: ENOXAPARIN 40 MG/0.4 ML SYR SQ SCH (07:47)
[2017-03-06] MEDS: ALBUT/IPRATROP 3MG/0.5MG NEB 3 ML VIAL INH SCH ×4 (07:57→19:57)
[2017-03-06] MEDS ORDERED: INSULIN GLARGINE SOLOSTAR 100 UNITS/ML 3 ML PEN SC SCH (08:00)
--- NOTE | 2017-03-06 08:02 | Pharmacy Progress Note ---
Glycemic Control: Progress Nt Date of Service Mar 06, 2017. Scope Glycemic Pharmacist consulted by Dr Patel on 03/06/17 for glycemic control and to write orders per [facility] inpatient glycemic control protocol. Objective Accuchecks BSG (last 24hrs): Test 03/05/17 08:02 03/05/17 11:34 03/05/17 17:11 03/05/17 20:15 Bedside Glucose 294 mg/dl (70-90) 368 mg/dl (70-90) 253 mg/dl (70-90) 292 mg/dl (70-90) Test 03/05/17 23:43 03/06/17 04:39 03/06/17 05:18 03/06/17 06:00 Bedside Glucose 222 mg/dl (70-90) 75 mg/dl (70-90) 103 mg/dl (70-90) 140 mg/dl (70-90) Test 03/06/17 07:15 03/06/17 07:37 Bedside Glucose 152 mg/dl (70-90) Laboratory Data (last 24hrs) Test 03/06/17 07:15 Recent Pertinent Medications Outpatient Anti-diabetic Regimen: * Novolin 70/30 mixed insulin * 90 units SQ BID with meals * Metformin 1000mg PO BID * Actos 15mg PO daily * A1c = 10.5 % (12/23/16) per H&P The patient is currently receiving: * Basal insulin: Lantus 38 units am, 35 units pm * Correctional Insulin: NovoLog Correction per scale AC+HS Goal Range: Low 140 mg/dL - High 180 mg/dL Correction Factor: 12 mg/dL/unit * Prandial insulin: Per carb ratio of 1 unit per 4 grams CHO consumed * Oral Agents: held on admission Risk Factors for Insulin Resistance: * Steroids: Prednisone 40 mg po daily * Infection: Levofloxacin IV - day #4 * Diet: T2DM Assessment & Plan Assessment * ADA & AACE recommend a goal blood sugar range 140-180 mg/dl for the majority of critically ill & non-critically ill patients. However, more stringent targets may be selected in individual cases. 03/06/17 * Patient required a total of 180 units of insulin on 03/05. This closely matches her home usage of Novolin 70/30 90 units BID. * I anticipate needs to decrease over the next 24 hours with steroids tapering off * I will decrease basal insulin (I based new Lantus dose off of 150 units per day) * Loosen correctional and prandial insulin parameters * Patient had a BSG of 75 mg/dL this am. The patient was very drowsy per nursing and was given orange juice. Repeat BSG 103 mg/dL. Patient is poorly controlled as an outpatient, thus she may experience hypoglycemic symptoms at a higher than anticipated BSG. * RN called at 1000 to report she withheld am lantus dose due to patient being drowsy again. Patient did not eat anything for breakfast. I advised her to check BSG, which resulted at 182 mg/dL. I instructed the RN to administer morning Lantus dose as ordered. 03/07/17 * Fasting BSG responded nicely to change in basal dosing yesterday. Patient required 73 units of basal insulin yesterday. * Will tighten goal range and correctional/prandial insulin parameters to allow for better mealtime control. * No changes in prednisone dosing PLAN FOR INPATIENT GLYCEMIC CONTROL: * Lantus SQ BID * For BSG less than 110 -> give 25 units * For BSG of 110-180 -> give 30 units * For BSG greater than 180 -> give 35 units * NovoLog SQ AC and HS * Continue Accu-checks overnight at 00:00 and 04:00 * Tighten goal range to 120 mg/dL - 160 mg/dL * Tighten Correction Factor: 10 mg/dL/unit * Tighten Carb ratio: 1 unit per 3 grams CHO consume * A1c added to discharge instructions RECOMMENDATIONS FOR DISCHARGE: * awaited * Please note that the plan above was derived based on current level of insulin resistance and hospital stress. These recommendations are appropriate for inpatient admission only. Plan of care upon discharge will need to be reassessed to avoid potential outpatient hypo/hyperglycemia. Thank you.
--- NOTE | 2017-03-06 08:10 | Clinical Documentation Query ---
AVE Orr : CLINICAL DOCUMENTATION QUERY Patient is a 56 year old diabetic female admitted for the evaluation and treatment of pneumonia, not otherwise specified. She is being treated with IV Levaquin, oral steroids, and nebulizer therapy. Sputum culture pending. Please clarify as clinically appropriate the actual or suspected type of pneumonia you are treating as this directly impacts DRG assignment. Thank you. In your clinical opinion is this patient being managed for: ( ) Suspected Gram-negative pneumonia in the setting of DM, treated with IV Levaquin ( + ) Other explanation of clinical findings (Please Explain) ( ) Unable to determine (Please Define) ( ) Need to Discuss ( ) Not Agree Community acquired pneumonia The medical record reflects the following clinical findings, treatment, and risk factors. Clinical Indicators: As above Treatment: She is being treated with IV Levaquin, oral steroids, and nebulizer therapy. Sputum culture pending. Risk Factors: Recurrent pneumonias Please clarify and document your clinical opinion in the progress notes and discharge summary. Terms such as "probable", "suspected", "likely", "questionable", "possible", or "still to be ruled out" are acceptable. IF IN AGREEMENT, YOU MUST DOCUMENT ABOVE DIAGNOSTIC STATEMENT IN DAILY PROGRESS NOTES AND DISCHARGE SUMMARY. This document is not part of the patient's record. Thank You, Jayesh Recio, POLINA [phone]
[2017-03-06 08:17] LABS: BASO % 0.2 %; BASO ABS # 0.02 K/uL (0-0.2); COMPLETE YES; EOS % 0.2 %; HEMATOCRIT 42.9 % (37-47); IG% 0.3 %; LYMPH % 21.4 %; LYMPH ABS # 2.76 K/uL (1.2-3.4); MEAN CELL VOLUME 87.4 fL (80-100); MEAN CORPUSCULAR HEMOGLOBIN 27.5 pg (25-34); MEAN CORPUSCULAR HGB CONC 31.5 g/dl (32-36); MEAN PLATELET VOLUME 9.4 fL (7.4-10.4); MONO % 5.5 %; NEUT % 72.4 %; PLATELET COUNT 323 K/uL (130-400); RED BLOOD COUNT 4.91 M/uL (4.2-5.4); WHITE BLOOD COUNT 12.89 K/uL (4.8-10.8)
[2017-03-06] MEDS ORDERED: OPTIRAY 320 IV PRN (08:30)
--- NOTE | 2017-03-06 08:40 | DIAGNOSTIC IMAGING REPORT ---
CHEST 2 VIEWS ROUTINE CLINICAL HISTORY: difficulty breathing dyspnea COMPARISON STUDY: 03/04/2017 FINDINGS: Persistent prominence pulmonary vasculature. Stable cardiomegaly. Diaphragms smooth. Very slight blunting left lateral gastric angle IMPRESSION: Cardiomegaly with stable components of congestive failure Electronically signed by: Yao Sánchez M.D. 03/06/2017 8:38 AM Dictated Date/Time: 03/06/2017 8:38 AM
[2017-03-06 08:43] LABS: BUN/CREATININE RATIO 23.7 (10-20); CALCIUM 8.8 mg/dl (8.5-10.1); CREATININE 0.78 mg/dl (0.60-1.20); POTASSIUM 4.5 mmol/L (3.5-5.1)
--- NOTE | 2017-03-06 09:07 | DIAGNOSTIC IMAGING REPORT ---
HEAD CT NONCONTRAST CT DOSE: 1271.22 mGy.cm HISTORY: slurred speech, drowsiness TECHNIQUE: Multiaxial CT images of the head were performed without the use of intravenous contrast. Automated exposure control was utilized for this study. Comparison: None. Findings: The paranasal sinuses and mastoid air cells are clear. The calvarium and skull base are intact. The ventricles and sulci are within normal limits. There is no mass, hematoma, midline shift, or acute infarct. Impression: No acute intracranial abnormality. Electronically signed by: Wali Beard M.D. 03/06/2017 9:05 AM Dictated Date/Time: 03/06/2017 9:03 AM
[2017-03-06] MEDS ORDERED: AZTREONAM CONSULT ACTIVE PRN ×2 (09:15)
--- NOTE | 2017-03-06 09:25 | DIAGNOSTIC IMAGING REPORT ---
CT ANGIOGRAM OF THE CHEST CLINICAL HISTORY: Dyspnea. COMPARISON STUDY: Chest x-ray dated 03/06/2017. TECHNIQUE: Following the IV administration of 21 cc of Optiray 320, CT angiogram of the chest was performed from the upper abdomen to the thoracic inlet utilizing the pulmonary embolus protocol. Images are reviewed in the axial, sagittal, and coronal planes. 3-D MIPS images are created and assessed. IV contrast was administered without complication. The examination is moderately degraded by motion artifact. The examination is also degraded by streak artifact from the right arm which could not be elevated above the chest. FINDINGS: Thyroid: Imaged portions of the thyroid gland are normal in size and attenuation. Thoracic aorta: The thoracic aorta is normal in caliber and demonstrates standard 3-vessel arch anatomy. No dissection is seen. Pulmonary vasculature: The pulmonary trunk is normal in caliber. There are no filling defects identified in main, lobar, or proximal segmental pulmonary branches to suggest pulmonary embolus. Evaluation of the peripheral branches is degraded by motion artifact. Heart: The heart is top normal in size and without pericardial effusion. Lungs and pleural spaces: Evaluation of lung parenchyma is significantly degraded by respiratory motion artifact. There is bibasilar atelectasis. There are patchy airspace opacities in the right lower lobe seen on image #124. No pleural effusion is identified. Large foci of linear atelectasis are present in both lungs. There are small calcified granulomas. The trachea is clear. Mediastinum: There are enlarged mediastinal lymph nodes. A right paratracheal node on image #206 measures 2.1 x 1.8 cm. A prevascular node on image #205 measures 2.1 x 1.1 cm. Marissa: Clear. Lower neck: There are mildly enlarged supraclavicular lymph nodes. A right supraclavicular node seen on image #285 measures 1.8 x 1.3 cm. Axillae: There is no axillary lymphadenopathy. Upper abdomen: A calcified splenic granulomas observed. Partially visualized upper abdominal viscera is otherwise within normal limits. Skeletal structures: The skeletal structures are osteopenic. No lytic or blastic bony lesions are seen. IMPRESSION: 1. Significantly streak and motion degraded examination. 2. There is no evidence of pulmonary embolus in the main, lobar, or proximal segmental pulmonary arteries. 3. There are nonspecific patchy airspace opacities identified in the right lower lobe. Is a represent a mild infectious/inflammatory pneumonitis but is not well characterized. Clinical correlation will be required. A follow-up chest CT is recommended in 3 months time to document resolution and to better assess the lung parenchyma. 4. There are mildly enlarged mediastinal and supraclavicular lymph nodes. These are nonspecific and may be reactive. These can also be reassessed at follow-up. 5. Additional findings as above. Electronically signed by: Barber Angeles M.D. 03/06/2017 9:23 AM Dictated Date/Time: 03/06/2017 9:07 AM
[2017-03-06] MEDS ORDERED: AZTREONAM IV 2,000 MG in DEXTROSE 5% 100ML 100 ML IV SCH (10:00)
[2017-03-06 10:03] LABS: ARTERIAL BLD GAS O2 SATURATION 90.4 % (90-95); ARTERIAL BLOOD GAS HCO3 35 mmol/L (19-24); ARTERIAL BLOOD GAS PO2 62 mm/Hg (80-95); ARTERIAL BLOOD GAS pH 7.36 (7.35-7.45)
[2017-03-06 10:04] LABS: ALLEN TEST POS (POS); O2 ADMINISTRATION 3.5L
[2017-03-06 10:27] LABS: ALT/SGPT 30 U/L (12-78); AST/SGOT 15 U/L (15-37); BLOOD UREA NITROGEN 18 mg/dl (7-18); BUN/CREATININE RATIO 24.4 (10-20); CALCIUM 8.8 mg/dl (8.5-10.1); CARBON DIOXIDE 35 mmol/L (21-32); CHLORIDE 99 mmol/L (98-107); CREATININE 0.73 mg/dl (0.60-1.20); GLUCOSE 181 mg/dl (70-99); POTASSIUM 4.7 mmol/L (3.5-5.1); SODIUM 139 mmol/L (136-145)
[2017-03-06 10:32] LABS: ALB/GLOB RATIO 0.9 (0.9-2); ALKALINE PHOSPHATASE 94 U/L (45-117)
[2017-03-06 12:22] LABS: URINE APPEARANCE CLEAR (CLEAR); URINE BILIRUBIN NEG (NEG); URINE COLOR YELLOW; URINE NITRITE NEG (NEG); URINE PH 5.5 (4.5-7.5); URINE SPECIFIC GRAVITY > 1.045 (1.000-1.030); UROBILINOGEN NEG (NEG); ZZUR CULT IF INDIC CLEAN CATCH NO
[2017-03-06 12:23] LABS: MANUAL MICROSCOPIC REQUIRED? NO; REVIEW REQ? NO
[2017-03-06] MEDS: LEVOFLOXACIN / D5W 750 MG in PREMIXED IN D5W 150 ML IV SCH (17:42)
--- NOTE | 2017-03-06 18:51 | Progress Note ---
Internal Med Progress Note Date of Service: Mar 06, 2017. Provider Documentation: SUBJECTIVE: was confused and lethargic in the morning later mental status improved afebrile sob is same denies chest pain eating ok OBJECTIVE: Vital Signs-as noted below Exam: General-alert and awake and oriented. Morbidly obese ENT-normal hearing Neck-no neck masses Lungs-cta b/l no wheezing or crackles Heart-s1 and s2 heard regular rate and rhythm no murmurs Abdomen-soft bowel sounds present non tender no distension Extremities- no erythema no edema Neuro-alert and awake moves extremities Lab data as noted below. ASSESSMENT & PLAN: 56F with hx of Dm, Obesity presented with pneumonia. But today morning was confused for some time. Workup negative except for co2 elevation on abgs. Tameka has sleep study scheduled in MARCH. Consulted pulmonary for any help with bipap prior to sleep study. Nocturnal pulse ox study today. Plan: Await nocturnal pulse ox study and pulmonary input. Encephalopathy 03/06/17 confused from hypoxia and co2 retention? ct head unremarkable ct chest no PE and shows pneumonia abg has elevated c02 complained of sob has out patient sleep study in March will do nocturnal pulse ox study will consult pulmonary - if patient needs bipap prior to sleep study currently stable on iv Levaquin for pneumonia Presented with Worsening SOB Pneumonia on Levaquin and nbs hx of smoking has some wheezing on po steroids 'will continue same DM Type 2 Recent Hba1c 10.5 (12/23/16) Uncontrolled DM will hold oral med On NPH 70/30 Insulin coverage close monitor while on steroids pharmacy consult for glycemic control and appreciate inputs will monitor Left hip bursitis recent steroid shot didn't helped will consult ortho for any further recommendations. Depression continue current home meds stable Fibromyalgia continue Cymbalta and Flexeril Insomnia Continue clonazepam prn DVT px on Lovenox subq CODE STATUS FULL CODE DISPOSITION pt/ot prior to discharge to be determined Vital Signs: Date Time Temp Pulse Resp B/P Pulse Ox O2 Delivery O2 Flow Rate FiO2 03/06/17 16:00 Nasal Cannula 2.0 03/06/17 15:59 87 20 96 Nasal Cannula 2.0 03/06/17 15:56 36.4 106 20 127/79 94 Nasal Cannula 2.0 03/06/17 11:49 100 20 96 Room Air 03/06/17 08:00 Nasal Cannula 3.0 03/06/17 07:58 108 20 90 Nasal Cannula 3.0 03/06/17 07:04 36.6 114 24 126/68 91 3.0 03/06/17 05:25 106 22 106/64 94 Nasal Cannula 3.0 03/06/17 00:19 36.8 102 20 111/67 94 2.0 03/06/17 00:00 Nasal Cannula 3.0 03/05/17 20:00 94 Nasal Cannula 3.0 03/05/17 19:30 110 20 94 Nasal Cannula 3.0 Lab Results: Results Past 24 Hours Test 03/05/17 20:15 03/05/17 23:43 03/06/17 04:39 03/06/17 05:18 Range/Units Bedside Glucose 292 222 75 103 70-90 mg/dl Test 03/06/17 06:00 03/06/17 07:37 03/06/17 08:05 03/06/17 09:48 Range/Units Bedside Glucose 140 152 70-90 mg/dl White Blood Count 12.89 4.8-10.8 K/uL Red Blood Count 4.91 4.2-5.4 M/uL Hemoglobin 13.5 12.0-16.0 g/dL Hematocrit 42.9 37-47 % Mean Corpuscular Volume 87.4 80-100 fL Mean Corpuscular Hemoglobin 27.5 25-34 pg Mean Corpuscular Hemoglobin Concent 31.5 32-36 g/dl Platelet Count 323 130-400 K/uL Mean Platelet Volume 9.4 7.4-10.4 fL Neutrophils (%) (Auto) 72.4 % Lymphocytes (%) (Auto) 21.4 % Monocytes (%) (Auto) 5.5 % Eosinophils (%) (Auto) 0.2 % Basophils (%) (Auto) 0.2 % Neutrophils # (Auto) 9.33 1.4-6.5 K/uL Lymphocytes # (Auto) 2.76 1.2-3.4 K/uL Monocytes # (Auto) 0.71 0.11-0.59 K/uL Eosinophils # (Auto) 0.03 0-0.5 K/uL Basophils # (Auto) 0.02 0-0.2 K/uL RDW Standard Deviation 47.5 36.4-46.3 fL RDW Coefficient of Variation 14.8 11.5-14.5 % Immature Granulocyte % (Auto) 0.3 % Immature Granulocyte # (Auto) 0.04 0.00-0.02 K/uL Sodium Level 140 139 136-145 mmol/L Potassium Level 4.5 4.7 3.5-5.1 mmol/L Chloride Level 101 99 98-107 mmol/L Carbon Dioxide Level 36 35 21-32 mmol/L Anion Gap 3.0 5.0 3-11 mmol/L Blood Urea Nitrogen 18 18 7-18 mg/dl Creatinine 0.78 0.73 0.60-1.20 mg/dl Est Creatinine Clear Calc Drug Dose 99.8 106.7 ml/min Estimated GFR () 99.9 108.2 Estimated GFR (Non- 86.2 93.4 BUN/Creatinine Ratio 23.7 24.4 10-20 Random Glucose 182 181 70-99 mg/dl Calcium Level 8.8 8.8 8.5-10.1 mg/dl Arterial Blood pH 7.36 7.35-7.45 Arterial Blood Partial Pressure CO2 63 35-46 mmHg Arterial Blood Partial Pressure O2 62 80-95 mm/Hg Arterial Blood HCO3 35 19-24 mmol/L Arterial Blood Oxygen Saturation 90.4 90-95 % Arterial Blood Base Excess 7.0 -9-1.8 mEq/L Arterial Blood Gas Delivery 3.5L [place] Test POS POS Total Bilirubin 0.5 0.2-1 mg/dl Aspartate Amino Transf (AST/SGOT) 15 15-37 U/L Alanine Aminotransferase (ALT/SGPT) 30 12-78 U/L Alkaline Phosphatase 94 45-117 U/L Troponin I < 0.015 0-0.045 ng/ml Total Protein 6.3 6.4-8.2 gm/dl Albumin 2.9 3.4-5.0 gm/dl Globulin 3.4 2.5-4.0 gm/dl Albumin/Globulin Ratio 0.9 0.9-2 Test 03/06/17 09:55 03/06/17 11:10 03/06/17 11:22 03/06/17 16:40 Range/Units Bedside Glucose 182 290 261 70-90 mg/dl Urine Color YELLOW Urine Appearance CLEAR CLEAR Urine pH 5.5 4.5-7.5 Urine Specific [place] > 1.045 1.000-1.030 Urine Protein NEG NEG Urine Glucose (UA) TRACE NEG Urine Ketones NEG NEG Urine Occult Blood NEG NEG Urine Nitrite NEG NEG Urine Bilirubin NEG NEG Urine Urobilinogen NEG NEG Urine Leukocyte Esterase NEG NEG
[2017-03-06] MEDS: DULOXETINE HCL 60 MG CAP PO SCH (21:47)
[2017-03-06] MEDS: CYCLOBENZAPRINE HCL 10 MG TAB PO SCH (21:47)
[2017-03-06] MEDS: CLONAZEPAM 1 MG TAB PO PRN (22:10)
[2017-03-06] MEDS: INSULIN GLARGINE SOLOSTAR 100 UNITS/ML 3 ML PEN SC SCH (22:15)
[2017-03-06] MEDS: CYPROHEPTADINE HCL 4 MG TAB PO PRN (23:31)
[2017-03-07] VITALS (7 sets, daily range): BP systolic 104–139; BP diastolic 66–80; PULSE 85–116; TEMP 36.3–36.7; O2SAT 78–95
[2017-03-07] MEDS: INSULIN ASPART 100 UNITS/ML 3 ML PEN SC SCH ×5 (04:30→21:07)
[2017-03-07 07:17] LABS: BASO % 0.2 %; BASO ABS # 0.02 K/uL (0-0.2); COMPLETE YES; EOS % 1.4 %; HEMATOCRIT 42.7 % (37-47); IG% 0.3 %; LYMPH % 29.3 %; MEAN CELL VOLUME 87.3 fL (80-100); MEAN CORPUSCULAR HGB CONC 32.1 g/dl (32-36); MEAN PLATELET VOLUME 9.8 fL (7.4-10.4); MONO % 7.8 %; PLATELET COUNT 310 K/uL (130-400); RED BLOOD COUNT 4.89 M/uL (4.2-5.4)
[2017-03-07 07:35] LABS: BUN/CREATININE RATIO 25.4 (10-20); CREATININE 0.67 mg/dl (0.60-1.20); MAGNESIUM 2.4 mg/dl (1.8-2.4)
[2017-03-07] MEDS: ALBUT/IPRATROP 3MG/0.5MG NEB 3 ML VIAL INH SCH ×4 (07:41→19:17)
[2017-03-07] MEDS: BECLOMETHASONE DIP HFA 80 MCG 8.7G INH INH SCH ×2 (08:54→21:00)
[2017-03-07] MEDS: DULOXETINE HCL 20 MG CAP PO SCH (08:55)
[2017-03-07] MEDS: LISINOPRIL 20 MG TAB PO SCH (08:55)
[2017-03-07] MEDS: PRAVASTATIN SOD 20 MG TAB PO SCH (08:55)
[2017-03-07] MEDS: ARIPIprazole TAB 15 MG TAB PO SCH (08:55)
[2017-03-07] MEDS: ENOXAPARIN 40 MG/0.4 ML SYR SQ SCH (08:56)
[2017-03-07] MEDS: INSULIN GLARGINE SOLOSTAR 100 UNITS/ML 3 ML PEN SC SCH ×2 (09:09→21:06)
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
--- NOTE | 2017-03-07 13:57 | ORTHOPEDIC PROGRESS NOTE ---
DATE: 03/07/2017 DATE: 03/07/2017. SUBJECTIVE: The patient is a 56-year-old white female who we were consulted on to see her for a left hip trochanteric bursitis. On walking into the patient's room, introducing myself, she states that she is no longer having the pain she was having in her left hip. She states that she had a cortisone injection approximately 1 week prior by her family practitioner. She states that when she was initially admitted on the she was having still some moderate pain in the left trochanteric region; however, on seeing her today, she states that she is no longer having the pain she was having and it is much better. She at this point is no longer seeking treatment for this at this moment in time. With the patient feeling better I discussed the case with Dr. Davina Rouse and felt that a consult at this time is not needed and discussed with the patient today and with Dr. Rouse that if she has a flare up while she is still here in the hospital, we would be glad to see her. At this time after receiving an injection of steroids 1 week ago and then also having the diagnosis of pneumonia on this admission it would likely be better to hold off on any other further corticosteroid injections at this time. The patient states that she is able to take nonsteroidal anti-inflammatories and plans will be that if she does start having a flare up that she can either be started on Celebrex or naproxen to see if this helps alleviate her discomfort. The patient will follow up with her family practitioner upon discharge from the hospital if she has any further problems with her left trochanteric bursitis.
--- NOTE | 2017-03-07 15:36 | Progress Note ---
Internal Med Progress Note Date of Service: Mar 07, 2017. Provider Documentation: SUBJECTIVE: Patient is doing better. No chest pain, fever, chills, nausea, vomiting, diarrhea OBJECTIVE: Vital Signs-as noted below Exam: General-AAOX3, No distress, Morbidly obese + Eyes-No icterus Neck-Supple Lungs-AEBE, no wheezing Heart-S1, S2 normal, no murmurs Extremities-No edema Lab data as noted below. ASSESSMENT & PLAN: ASSESSMENT & PLAN : 56F with hx of DM, Obesity presented with Pneumonia. Workup negative except for CO2 elevation on ABGs. Patient has sleep study scheduled in MARCH. PNEUMONIA, Community acquired : -Afebrile, leucocytosis improved -On Levofloxacin IV --> change to PO -Continue with PO steroids EPISODIC CONFUSION Note on 03/06/17 - resolved by itself. -Secondary to hypoxia ? -ABGs repeated- CO2 60s as before HYPOXIA - Likely secondary to morbid obesity/Probable KENDRA -ABGs - elevated co2 in 60s, CT scan- no PE, Infiltrate -Scheduled for outpatient sleep study in March end, but needs to be on BIPAP sooner. -Nocturnal pulse oximetry study ordered- > 500 desaturations noted overnight, but to qualify for outpatient BIPAP needs it to be done on 2 L -Pulmonary on board DM Type 2 Recent Hba1c 10.5 (12/23/16)- Uncontrolled DM Hold oral meds -On NPH 70/30 -Insulin coverage -Pharmacy consult for glycemic control and appreciate inputs LEFT HIP BURSITIS - Improved Recent steroid shot - didn't help -Ortho consulted- no intervention needed as per patient it has already improved DEPRESSION -continue current home meds -stable FIBROMYALGIA -Continue Cymbalta and Flexeril INSOMNIA -Continue clonazepam -decreased from 2 mg to 1 mg daily DVT PROPHYLAXIS -Lovenox SQ CODE STATUS - FULL CODE DISPOSITION PT/OT prior to discharge To be determined Vital Signs: Date Time Temp Pulse Resp B/P Pulse Ox O2 Delivery O2 Flow Rate FiO2 03/07/17 14:56 107 18 94 Nasal Cannula 2.0 03/07/17 11:46 116 18 94 Nasal Cannula 2.0 03/07/17 08:00 Room Air 03/07/17 07:41 85 18 78 Room Air 03/07/17 07:08 36.7 99 20 134/69 90 Room Air 03/07/17 00:14 36.4 98 20 104/66 90 Room Air 03/07/17 00:00 Room Air 03/06/17 19:25 94 18 96 Nasal Cannula 2.0 03/06/17 16:00 Nasal Cannula 2.0 03/06/17 15:59 87 20 96 Nasal Cannula 2.0 03/06/17 15:56 36.4 106 20 127/79 94 Nasal Cannula 2.0 Lab Results: Results Past 24 Hours Test 03/06/17 16:40 03/06/17 20:04 03/06/17 23:41 03/07/17 04:28 Range/Units Bedside Glucose 261 201 167 123 70-90 mg/dl Test 03/07/17 06:40 03/07/17 07:38 03/07/17 11:38 Range/Units White Blood Count 11.60 4.8-10.8 K/uL Red Blood Count 4.89 4.2-5.4 M/uL Hemoglobin 13.7 12.0-16.0 g/dL Hematocrit 42.7 37-47 % Mean Corpuscular Volume 87.3 80-100 fL Mean Corpuscular Hemoglobin 28.0 25-34 pg Mean Corpuscular Hemoglobin Concent 32.1 32-36 g/dl Platelet Count 310 130-400 K/uL Mean Platelet Volume 9.8 7.4-10.4 fL Neutrophils (%) (Auto) 61.0 % Lymphocytes (%) (Auto) 29.3 % Monocytes (%) (Auto) 7.8 % Eosinophils (%) (Auto) 1.4 % Basophils (%) (Auto) 0.2 % Neutrophils # (Auto) 7.08 1.4-6.5 K/uL Lymphocytes # (Auto) 3.40 1.2-3.4 K/uL Monocytes # (Auto) 0.91 0.11-0.59 K/uL Eosinophils # (Auto) 0.16 0-0.5 K/uL Basophils # (Auto) 0.02 0-0.2 K/uL RDW Standard Deviation 47.0 36.4-46.3 fL RDW Coefficient of Variation 14.8 11.5-14.5 % Immature Granulocyte % (Auto) 0.3 % Immature Granulocyte # (Auto) 0.03 0.00-0.02 K/uL Sodium Level 141 136-145 mmol/L Potassium Level 4.0 3.5-5.1 mmol/L Chloride Level 100 98-107 mmol/L Carbon Dioxide Level 37 21-32 mmol/L Anion Gap 4.0 3-11 mmol/L Blood Urea Nitrogen 17 7-18 mg/dl Creatinine 0.67 0.60-1.20 mg/dl Est Creatinine Clear Calc Drug Dose 116.2 ml/min Estimated GFR () 115.5 Estimated GFR (Non- 99.7 BUN/Creatinine Ratio 25.4 10-20 Random Glucose 117 70-99 mg/dl Calcium Level 9.0 8.5-10.1 mg/dl Magnesium Level 2.4 1.8-2.4 mg/dl Bedside Glucose 123 240 70-90 mg/dl
[2017-03-07] MEDS: LEVOFLOXACIN 750 MG TAB PO SCH (17:52)
[2017-03-07] MEDS: CYPROHEPTADINE HCL 4 MG TAB PO PRN (21:01)
[2017-03-07] MEDS: CYCLOBENZAPRINE HCL 10 MG TAB PO SCH (21:01)
[2017-03-07] MEDS: CLONAZEPAM 1 MG TAB PO PRN (21:01)
[2017-03-07] MEDS: DULOXETINE HCL 60 MG CAP PO SCH (21:01)
[2017-03-08] VITALS (10 sets, daily range): BP systolic 124–145; BP diastolic 67–93; PULSE 101–112; TEMP 36.6–36.7; O2SAT 91–95
[2017-03-08] MEDS: INSULIN ASPART 100 UNITS/ML 3 ML PEN SC SCH ×6 (00:16→20:56)
[2017-03-08] MEDS ORDERED: NURSING VERBAL MED ORDER ONE (06:30)
[2017-03-08 07:10] LABS: BASO % 0.2 %; BASO ABS # 0.03 K/uL (0-0.2); COMPLETE YES; EOS % 1.4 %; HEMATOCRIT 44.9 % (37-47); IG% 0.2 %; LYMPH % 25.2 %; LYMPH ABS # 3.23 K/uL (1.2-3.4); MEAN CELL VOLUME 88.7 fL (80-100); MEAN CORPUSCULAR HEMOGLOBIN 27.7 pg (25-34); MEAN CORPUSCULAR HGB CONC 31.2 g/dl (32-36); MEAN PLATELET VOLUME 9.4 fL (7.4-10.4); MONO % 6.2 %; NEUT % 66.8 %; PLATELET COUNT 331 K/uL (130-400); RED BLOOD COUNT 5.06 M/uL (4.2-5.4); WHITE BLOOD COUNT 12.83 K/uL (4.8-10.8)
[2017-03-08 07:49] LABS: CALCIUM 8.8 mg/dl (8.5-10.1); CREATININE 0.72 mg/dl (0.60-1.20); MAGNESIUM 2.6 mg/dl (1.8-2.4)
[2017-03-08] MEDS: ALBUT/IPRATROP 3MG/0.5MG NEB 3 ML VIAL INH SCH ×4 (08:00→19:10)
[2017-03-08] MEDS: BECLOMETHASONE DIP HFA 80 MCG 8.7G INH INH SCH ×2 (08:39→20:57)
[2017-03-08] MEDS: PRAVASTATIN SOD 20 MG TAB PO SCH (08:39)
[2017-03-08] MEDS: ARIPIprazole TAB 15 MG TAB PO SCH (08:40)
[2017-03-08] MEDS: LISINOPRIL 20 MG TAB PO SCH (08:40)
[2017-03-08] MEDS: ENOXAPARIN 40 MG/0.4 ML SYR SQ SCH (08:40)
[2017-03-08] MEDS: DULOXETINE HCL 20 MG CAP PO SCH (08:40)
[2017-03-08] MEDS: INSULIN GLARGINE SOLOSTAR 100 UNITS/ML 3 ML PEN SC SCH ×2 (08:42→20:56)
--- NOTE | 2017-03-08 14:25 | Pharmacy Progress Note ---
Glycemic Control: Progress Nt Date of Service Mar 08, 2017. Scope Glycemic Pharmacist consulted by Dr Patel on 03/04/17 for glycemic control and to write orders per [facility] inpatient glycemic control protocol. Objective Accuchecks BSG (last 24hrs): Test 03/07/17 16:18 03/07/17 20:18 03/07/17 23:55 03/08/17 04:03 Bedside Glucose 274 mg/dl (70-90) 264 mg/dl (70-90) 122 mg/dl (70-90) 95 mg/dl (70-90) Test 03/08/17 06:45 03/08/17 07:26 03/08/17 11:36 Random Glucose 196 mg/dl (70-99) Bedside Glucose 199 mg/dl (70-90) 212 mg/dl (70-90) HbA1c: 10.5% 12/23/16 per H&P Recent Pertinent Medications Outpatient Anti-diabetic Regimen: * Novolin 70/30 mixed insulin * 90 units SQ BID with meals * Metformin 1000mg PO BID * Actos 15mg PO daily * A1c = 10.5 % (12/23/16) per H&P The patient is currently receiving: * Basal insulin: Lantus 30-35 units every 12 hours * Correctional Insulin: Novolog Correction per scale ACHS Goal Range: Low 120 mg/dL - High 160 mg/dL Correction Factor: 10 mg/dL/unit * Prandial insulin: Per carb ratio of 1 unit per 3 grams CHO consumed * Oral Agents: On hold for admission Risk Factors for Insulin Resistance: * Steroids * Infection * Diet * Baseline insulin resistance/poor control Assessment & Plan ASSESSMENT: Background: * 56yo T2DM female with poor outpatient control per recent A1c stated in H&P * Outpatient regimen is premixed basal/prandial insulin of Novolin 70/30 mix insulin. * Pre-mixed insulin is difficult to titrate since it is already in a fixed distribution of basal:prandial insulin. Continuing pre-mixed insulin for admission typically lead to hypoglycemia d/t changing PO status but rapid acting insulin is unable to be held * Unable to titrate premixed insulin for steroid induced hyperglycemia therefore, outpatient regimen was held on admission and pt initiated on SQ basal bolus insulin regimen with Lantus + NovoLog (CF+CR) * Pt with persistent hyperglycemia since admission d/t steroids and missed basal insulin dose 415 PM 03/08/17 * Patient is currently receiving an average of 150 units of insulin per day. * ~ 65 units of basal insulin * ~ 101 units of prandial/correctional insulin * BSGs ranging 95 - 274mg/dl over the past 24hrs * Anticipating insulin regimen will need re-distributed now that steroids tapered to once daily prednisone * AM Fasting BSG = 199mg/dl therefore Basal insulin needs increased slightly . Do not want to cover steroid induced hyperglycemia with long acting insulin as hypoglycemia can occur when steroids tapered and pt still has extra basal insulin on board. Outpatient insulin dosing is 180units/day in a 70%:30% distribution of basal:prandial insulin. This correlates to 126 units of basal insulin per day. Do not want to use this much basal insulin in house as outpatient basal insulin is most likely also covering some prandial needs. Prefer a 40%:60% distribution of basal:prandial insulin for steroid induced hyperglycemia. Regarless, patient is receiving ~ 50% of outpatient basal insulin dosing so we have some room to continue to titrate upwards * Post-prandial BSGs are elevated/BSGs rise throughout the day therefore Tighten CF/CR & lower goal range slightly (based on age and comorbidities). Tight glycemic control necessary to facilitate infection healing PLAN FOR INPATIENT GLYCEMIC CONTROL: * Continue to hold outpatient oral diabetes medications * Increase basal insulin with Lantus to 35 units SQ BID * NovoLog per scale ACHS or Q6hrs while NPO. Additional checks + coverage at 0000 & 0400 for RTC hyperglycemia * Lower Goal Range: Low 120 mg/dL - High 140 mg/dL * Tighten Correction Factor: 9 mg/dL/unit * Continue Nutritional / Prandial insulin per carb ratio of 1 unit per 3 grams CHO consumed (may consider tightening CR for breakfast & lunch only to help cover steroid induced hyperglycemia secondary to once daily prednisone given in AM) * Consider resuming oral agents (Metformin +/- Actos) 1-2 days prior to discharge. Pt received contrast 03/06/17 therefore metformin should be ok to resume after 03/08/17 * Please note that the plan above was derived based on current level of insulin resistance and hospital stress. These recommendations are appropriate for inpatient admission only. Plan of care upon discharge will need to be reassessed to avoid potential outpatient hypo/hyperglycemia. Thank you.
--- NOTE | 2017-03-08 14:57 | PULMONARY PROGRESS NOTE ---
DATE: 03/08/2017 TIME: 02:15 p.m. SUBJECTIVE: The patient feels somewhat better. She is more alert. Her cough has decreased somewhat. The mucus is now even timber killer in color. The quantity of mucus has also diminished. Her was with her during this evaluation. She states she has been walking the hallways with oxygen on with assistance. OBJECTIVE: GENERAL: The patient appears comfortable at rest. VITAL SIGNS: Temperature is 36.6. There has been no significant fevers. ENT: Unchanged from yesterday. She does wear corrective lenses. NECK: No lymphadenopathy was palpable. CARDIOVASCULAR: Heart rate was 110 per minute. She states that for many years she has had a heart rate typically over 100. Blood pressure is 145/93. CHEST: Respiratory rate is 16 breaths per minute. Oxygen 2 liters nasal cannula shows a pulse ox of 95%. The breath sounds are decreased. She did cough when asked to take deep breaths. ABDOMEN: Obese. Bowel sounds were present. There was no tenderness to palpation. EXTREMITIES: Revealed nonpitting edema. LABORATORY DATA: White count today is 12.83. Hemoglobin is 14. Platelets are 331,000. Electrolytes today show sodium 139, potassium 4.0, chloride 99, and bicarbonate 35. The BUN is 19 with a creatinine of 0.72. Maximum blood sugar today is 212. IMPRESSIONS: 1. Respiratory failure - acute on chronic with hypercarbia and hypoxia. 2. Right lower lobe pneumonia. 3. Mediastinal adenopathy. 4. Asthma by history. 5. Obesity hypoventilation syndrome. 6. Obstructive sleep apnea. COMMENTS AND RECOMMENDATIONS: The patient seems clinically a bit better. She states she is still short of breath. She was given a trial of the CPAP or BiPAP yesterday. She states the mask scared her, but she did wear it for 4 hours. We are going to ask them to have her wear it again today. This is to help her get accustomed to it. She still needs an overnight pulse oximetry done on 2 liters. As per my discussion with Dr. Rouse, this will be arranged for tonight. She will need follow up with a CAT scan in 3 months to assess the mediastinal adenopathy. In light of that and in light of her getting CPAP perhaps I should follow up with her upon discharge. I believe the prednisone could be reduced to 30 mg daily. This may be helpful for her blood sugars. MTDD
[2017-03-08] MEDS: NAPROXEN 250 MG TAB PO PRN (16:53)
--- NOTE | 2017-03-08 17:18 | Progress Note ---
Internal Med Progress Note Date of Service: Mar 08, 2017. Provider Documentation: SUBJECTIVE: Patient is doing better. No chest pain, fever, chills, nausea, vomiting, diarrhea Tolerated CPAP yesterday and today OBJECTIVE: Vital Signs-as noted below Exam: General-AAOX3, No distress, Morbidly obese + HEENT- CPAP + Eyes-No icterus Neck-Supple Lungs-AEBE, no wheezing Heart-S1, S2 normal, no murmurs Extremities-No edema Lab data as noted below. CT CHEST : IMPRESSION: 1. Significantly streak and motion degraded examination. 2. There is no evidence of pulmonary embolus in the main, lobar, or proximal segmental pulmonary arteries. 3. There are nonspecific patchy airspace opacities identified in the right lower lobe. Is a represent a mild infectious/inflammatory pneumonitis but is not well characterized. Clinical correlation will be required. A follow-up chest CT is recommended in 3 months time to document resolution and to better assess the lung parenchyma. 4. There are mildly enlarged mediastinal and supraclavicular lymph nodes. These are nonspecific and may be reactive. These can also be reassessed at follow-up. ASSESSMENT & PLAN: ASSESSMENT & PLAN : 56F with hx of DM, Obesity presented with Pneumonia. Workup negative except for CO2 elevation on ABGs. Patient has sleep study scheduled in MARCH. PNEUMONIA, Community acquired : -Afebrile, leucocytosis improved -On Levofloxacin IV --> changed to PO -Continue with PO steroids -CT chest- There are nonspecific patchy airspace opacities identified in the right lower lobe. Is a represent a mild infectious/inflammatory pneumonitis but is not well characterized. Clinical correlation will be required. A follow-up chest CT is recommended in 3 months time to document resolution and to better assess the lung parenchyma. There are mildly enlarged mediastinal and supraclavicular lymph nodes. HYPOXIA - Likely secondary to morbid obesity/Obesity hypoventilation syndrome, Probable KENDRA -ABGs - elevated co2 in 60s, CT scan- no PE, Infiltrate -Scheduled for outpatient sleep study in March end, but needs to be on BIPAP sooner. -Nocturnal pulse oximetry study ordered- > 500 desaturations noted overnight, but to qualify for outpatient BIPAP needs it to be done on 2 L -Pulmonary on board EPISODIC CONFUSION- Resolved Note on 03/06/17 - resolved by itself. -Secondary to hypoxia ? -ABGs repeated- CO2 60s as before DM Type 2 Recent Hba1c 10.5 (12/23/16)- Uncontrolled DM Hold oral meds -On NPH 70/30 -Insulin coverage -Pharmacy consult for glycemic control and appreciate inputs LEFT HIP BURSITIS - Improved Recent steroid shot - didn't help -Ortho consulted- no intervention needed as per patient it has already improved DEPRESSION -continue current home meds -stable FIBROMYALGIA -Continue Cymbalta and Flexeril INSOMNIA -Continue clonazepam -decreased from 2 mg to 1 mg daily DVT PROPHYLAXIS -Lovenox SQ CODE STATUS - FULL CODE DISPOSITION Tolerated ambulation well Needs nocturnal pulse oximetry on 2 L oxygen tonight and will try to make arrangements for Auto CPAP prior to discharge Expected discharge home when stable -Follow up CT scan chest in 3 months -Follow up with PCP/Pulmonary outpatient Vital Signs: Date Time Temp Pulse Resp B/P Pulse Ox O2 Delivery O2 Flow Rate FiO2 03/08/17 15:26 108 16 94 Nasal Cannula 2.0 03/08/17 15:19 36.7 111 18 124/67 91 Nasal Cannula 2.0 03/08/17 11:56 101 16 95 Nasal Cannula 2.0 03/08/17 08:00 Room Air 03/08/17 08:00 101 16 95 Nasal Cannula 2.0 03/08/17 07:22 36.6 103 20 145/93 93 Nasal Cannula 2.0 03/08/17 00:35 36.7 102 18 136/75 92 2.0 03/08/17 00:00 92 CPAP 2.0 03/07/17 19:17 109 18 95 Nasal Cannula 2.0 Lab Results: Results Past 24 Hours Test 03/07/17 20:18 03/07/17 23:55 03/08/17 04:03 03/08/17 06:45 Range/Units Bedside Glucose 264 122 95 70-90 mg/dl White Blood Count 12.83 4.8-10.8 K/uL Red Blood Count 5.06 4.2-5.4 M/uL Hemoglobin 14.0 12.0-16.0 g/dL Hematocrit 44.9 37-47 % Mean Corpuscular Volume 88.7 80-100 fL Mean Corpuscular Hemoglobin 27.7 25-34 pg Mean Corpuscular Hemoglobin Concent 31.2 32-36 g/dl Platelet Count 331 130-400 K/uL Mean Platelet Volume 9.4 7.4-10.4 fL Neutrophils (%) (Auto) 66.8 % Lymphocytes (%) (Auto) 25.2 % Monocytes (%) (Auto) 6.2 % Eosinophils (%) (Auto) 1.4 % Basophils (%) (Auto) 0.2 % Neutrophils # (Auto) 8.57 1.4-6.5 K/uL Lymphocytes # (Auto) 3.23 1.2-3.4 K/uL Monocytes # (Auto) 0.79 0.11-0.59 K/uL Eosinophils # (Auto) 0.18 0-0.5 K/uL Basophils # (Auto) 0.03 0-0.2 K/uL RDW Standard Deviation 47.6 36.4-46.3 fL RDW Coefficient of Variation 14.7 11.5-14.5 % Immature Granulocyte % (Auto) 0.2 % Immature Granulocyte # (Auto) 0.03 0.00-0.02 K/uL Sodium Level 139 136-145 mmol/L Potassium Level 4.0 3.5-5.1 mmol/L Chloride Level 99 98-107 mmol/L Carbon Dioxide Level 35 21-32 mmol/L Anion Gap 5.0 3-11 mmol/L Blood Urea Nitrogen 19 7-18 mg/dl Creatinine 0.72 0.60-1.20 mg/dl Est Creatinine Clear Calc Drug Dose 108.1 ml/min Estimated GFR () 110.0 Estimated GFR (Non- 94.9 BUN/Creatinine Ratio 27.0 10-20 Random Glucose 196 70-99 mg/dl Calcium Level 8.8 8.5-10.1 mg/dl Magnesium Level 2.6 1.8-2.4 mg/dl Test 03/08/17 07:26 03/08/17 11:36 03/08/17 16:06 Range/Units Bedside Glucose 199 212 154 70-90 mg/dl
[2017-03-08] MEDS: LEVOFLOXACIN 750 MG TAB PO SCH (17:55)
[2017-03-08] MEDS: DULOXETINE HCL 60 MG CAP PO SCH (20:57)
[2017-03-08] MEDS: CLONAZEPAM 1 MG TAB PO PRN (20:58)
[2017-03-08] MEDS: GUAIFENESIN 200 MG TAB PO PRN (20:58)
[2017-03-08] MEDS: CYPROHEPTADINE HCL 4 MG TAB PO PRN (20:58)
[2017-03-08] MEDS: CYCLOBENZAPRINE HCL 10 MG TAB PO SCH (20:58)
[2017-03-09] VITALS (12 sets, daily range): BP systolic 109–142; BP diastolic 70–97; PULSE 97–110; TEMP 36.3–36.8; O2SAT 84–96
[2017-03-09] MEDS: INSULIN ASPART 100 UNITS/ML 3 ML PEN SC SCH ×6 (03:34→21:49)
[2017-03-09 07:27] LABS: BASO % 0.2 %; BASO ABS # 0.02 K/uL (0-0.2); HEMATOCRIT 44.2 % (37-47); IG% 0.2 %; LYMPH % 27.1 %; LYMPH ABS # 3.47 K/uL (1.2-3.4); MEAN CELL VOLUME 88.4 fL (80-100); MEAN CORPUSCULAR HEMOGLOBIN 27.8 pg (25-34); MEAN PLATELET VOLUME 9.2 fL (7.4-10.4); MONO % 5.1 %; NEUT % 66.4 %; PLATELET COUNT 306 K/uL (130-400); WHITE BLOOD COUNT 12.81 K/uL (4.8-10.8)
[2017-03-09 07:29] LABS: COMPLETE YES; MEAN CORPUSCULAR HGB CONC 31.4 g/dl (32-36)
[2017-03-09] MEDS: ALBUT/IPRATROP 3MG/0.5MG NEB 3 ML VIAL INH SCH ×4 (07:43→19:24)
[2017-03-09 07:49] LABS: BUN/CREATININE RATIO 24.3 (10-20); CALCIUM 8.9 mg/dl (8.5-10.1); CREATININE 0.74 mg/dl (0.60-1.20); MAGNESIUM 2.5 mg/dl (1.8-2.4); POTASSIUM 4.3 mmol/L (3.5-5.1)
[2017-03-09] MEDS: NAPROXEN 250 MG TAB PO PRN ×2 (07:55→21:26)
[2017-03-09] MEDS: LISINOPRIL 20 MG TAB PO SCH (07:55)
[2017-03-09] MEDS: BECLOMETHASONE DIP HFA 80 MCG 8.7G INH INH SCH ×2 (07:56→21:23)
[2017-03-09] MEDS: ARIPIprazole TAB 15 MG TAB PO SCH (07:56)
[2017-03-09] MEDS: DULOXETINE HCL 20 MG CAP PO SCH (07:57)
[2017-03-09] MEDS: PRAVASTATIN SOD 20 MG TAB PO SCH (07:58)
[2017-03-09] MEDS: ENOXAPARIN 40 MG/0.4 ML SYR SQ SCH (07:58)
[2017-03-09] MEDS: INSULIN GLARGINE SOLOSTAR 100 UNITS/ML 3 ML PEN SC SCH ×2 (09:24→20:00)
--- NOTE | 2017-03-09 11:00 | PULMONARY PROGRESS NOTE ---
DATE: 03/09/2017 TIME: 10:35 a.m. SUBJECTIVE: The patient had a poor night sleep. She was wearing the overnight pulse oximetry for her study. She states she was so concerned about trying to sleep that it prevented her from sleeping. She slept overall very poorly and she feels very sleepy this morning. She relates she had a bad coughing spell last night. She was then given some medication for her cough that probably was guaifenesin. She has not been ambulating today. The results of the overnight pulse oximetry study are not yet posted in the computer. Thus, we cannot be certain at present if she qualifies for the CPAP at home or BiPAP at home. OBJECTIVE: GENERAL: The patient was sleepy but she aroused easily. She was cooperative and oriented. EARS, NOSE, THROAT: Unchanged. NECK: She does have a large neck as noted previously. VITAL SIGNS: Temperature is 36.3. Heart rate was 97 per minute. Blood pressure 142/97. Respiratory rate was 16 breaths per minute. LUNGS: Lung cagle were clear but mildly diminished. Saturation was 93% on 2 liter nasal cannula. ABDOMEN: Obese. It was nontender. No masses were palpable. EXTREMITIES: Showed mild nonpitting edema. IMPRESSIONS: 1. Respiratory failure -- acute on chronic with hypoxia and hypercarbia -- improved. 2. Right lower lobe pneumonia. 3. Asthma by history. 4. Obesity-hypoventilation syndrome. 5. Mediastinal adenopathy. 6. Probable obstructive sleep apnea. COMMENTS: We are awaiting the overnight pulse ox to see if she qualifies for CPAP at home. This way she would not need to wait for the sleep study scheduled at the end of March. She should be treated before then if at all feasible. We need to determine if she requires oxygen at home. I think it might be reasonable to recheck a blood gas today on room air. If her oxygenation is above 55, she would then need to have a 2-step. The patient is concerned about going home. She states her is disabled, at least partially, and cannot help with anything at home. The prednisone can be gradually tapered as an outpatient. She may need a total of 7 days of levofloxacin. Perhaps ordering physical therapy to ambulate her might be of benefit. I explained to the patient that I would want to see her as an outpatient and I gave her my card. She will need followup regarding sleep apnea and with a followup CAT scan that needs to be done. I would like to see the patient back in approximately 6 weeks or so.
[2017-03-09 14:13] LABS: ALLEN TEST POS (POS); ARTERIAL BLD GAS O2 SATURATION 91.1 % (90-95); ARTERIAL BLOOD GAS BASE EXCESS 7.3 mEq/L (-9-1.8); ARTERIAL BLOOD GAS HCO3 33 mmol/L (19-24); ARTERIAL BLOOD GAS PO2 63 mm/Hg (80-95); ARTERIAL BLOOD GAS pH 7.44 (7.35-7.45); O2 ADMINISTRATION RA
--- NOTE | 2017-03-09 16:06 | Pharmacy Progress Note ---
Glycemic Control: Progress Nt Date of Service Mar 09, 2017. Scope Glycemic Pharmacist consulted by Dr [] on [date] for glycemic control and to write orders per [facility] inpatient glycemic control protocol. Objective Accuchecks BSG (last 24hrs): Test 03/08/17 16:06 03/08/17 19:50 03/08/17 23:59 03/09/17 03:30 Bedside Glucose 154 mg/dl (70-90) 230 mg/dl (70-90) 136 mg/dl (70-90) 82 mg/dl (70-90) Test 03/09/17 07:18 03/09/17 07:40 03/09/17 11:21 Random Glucose 174 mg/dl (70-99) Bedside Glucose 158 mg/dl (70-90) 200 mg/dl (70-90) Laboratory Data (last 24hrs) Test 03/09/17 07:18 Anion Gap 4.0 mmol/L BUN/Creatinine Ratio 24.3 Blood Urea Nitrogen 18 mg/dl Creatinine 0.74 mg/dl Potassium Level 4.3 mmol/L Sodium Level 140 mmol/L White Blood Count 12.81 K/uL Red Blood Count 5.00 M/uL Hemoglobin 13.9 g/dL Hematocrit 44.2 % Mean Corpuscular Volume 88.4 fL Mean Corpuscular Hemoglobin 27.8 pg Mean Corpuscular Hemoglobin Concent 31.4 g/dl Platelet Count 306 K/uL Mean Platelet Volume 9.2 fL Neutrophils (%) (Auto) 66.4 % Lymphocytes (%) (Auto) 27.1 % Monocytes (%) (Auto) 5.1 % Eosinophils (%) (Auto) 1.0 % Basophils (%) (Auto) 0.2 % Neutrophils # (Auto) 8.51 K/uL Lymphocytes # (Auto) 3.47 K/uL Monocytes # (Auto) 0.65 K/uL Eosinophils # (Auto) 0.13 K/uL Basophils # (Auto) 0.02 K/uL Recent Pertinent Medications Outpatient Anti-diabetic Regimen: * Novolin 70/30 mixed insulin * 90 units SQ BID with meals * Metformin 1000mg PO BID * Actos 15mg PO daily * A1c = 10.5 % (12/23/16) per H&P The patient is currently receiving: * Basal insulin: Lantus 30-35 units SQ BID * Correctional Insulin: Novolog Correction per scale ACHS Goal Range: Low 120 mg/dL - High 140 mg/dL Correction Factor: 9 mg/dL/unit * Prandial insulin: Per carb ratio of 1 unit per 3 grams CHO consumed * Oral Agents: On hold for admission Risk Factors for Insulin Resistance: * Steroids: Prednisone (decreased today from 40 mg to 30 mg PO daily) * Infection: Levofloxacin * Diet: T2DM * Baseline insulin resistance Assessment & Plan ASSESSMENT: Background: * 56yo T2DM female with poor outpatient control per recent A1c stated in H&P * Outpatient regimen is premixed basal/prandial insulin of Novolin 70/30 mix insulin. * Pre-mixed insulin is difficult to titrate since it is already in a fixed distribution of basal:prandial insulin. Continuing pre-mixed insulin for admission typically lead to hypoglycemia d/t changing PO status but rapid acting insulin is unable to be held * Unable to titrate premixed insulin for steroid induced hyperglycemia therefore, outpatient regimen was held on admission and pt initiated on SQ basal bolus insulin regimen with Lantus + NovoLog (CF+CR) * Pt with persistent hyperglycemia since admission d/t steroids and missed basal insulin dose 15 PM 03/08/17 * Patient is currently receiving an average of 150 units of insulin per day. * ~ 65 units of basal insulin * ~ 101 units of prandial/correctional insulin * BSGs ranging 95 - 274mg/dl over the past 24hrs * Anticipating insulin regimen will need re-distributed now that steroids tapered to once daily prednisone * AM Fasting BSG = 199mg/dl therefore Basal insulin needs increased slightly . Do not want to cover steroid induced hyperglycemia with long acting insulin as hypoglycemia can occur when steroids tapered and pt still has extra basal insulin on board. Outpatient insulin dosing is 180units/day in a 70%:30% distribution of basal:prandial insulin. This correlates to 126 units of basal insulin per day. Do not want to use this much basal insulin in house as outpatient basal insulin is most likely also covering some prandial needs. Prefer a 40%:60% distribution of basal:prandial insulin for steroid induced hyperglycemia. Regardless, patient is receiving ~ 50% of outpatient basal insulin dosing so we have some room to continue to titrate upwards * Post-prandial BSGs are elevated/BSGs rise throughout the day therefore Tighten CF/CR & lower goal range slightly (based on age and comorbidities). Tight glycemic control necessary to facilitate infection healing 03/09/17 * Steroids continue to be tapered -> Prednisone decreased from 40 mg to 30 mg PO daily * BSGs ranged from 82 to 230 mg/dL over the last 24 hours. * Fasting BSG improved today. Continue current basal insulin dosing. * Post prandial BSGs also slightly improved with tightening of novolog CF and CR yesterday. * At this time, outpatient oral antidiabetic medications will be resumed. * No change to insulin since steroid dose was decreased and oral agents are being resumed. PLAN FOR INPATIENT GLYCEMIC CONTROL: * Resume outpatient oral diabetes medications * Metformin 1,000 mg PO BID - starting 03/09 pm * Pioglitazone (Actos) 15 mg PO daily - starting 03/10 am * Continue basal insulin with Lantus to 30-35 units SQ BID * NovoLog per scale ACHS with Additional checks at 0000 & 0400 * Goal Range: Low 120 mg/dL - High 140 mg/dL * Continue Correction Factor: 9 mg/dL/unit * Continue Nutritional / Prandial insulin per carb ratio of 1 unit per 3 grams CHO consumed RECOMMENDATIONS FOR DISCHARGE: * awaited * Please note that the plan above was derived based on current level of insulin resistance and hospital stress. These recommendations are appropriate for inpatient admission only. Plan of care upon discharge will need to be reassessed to avoid potential outpatient hypo/hyperglycemia. Thank you.
--- NOTE | 2017-03-09 17:14 | Progress Note ---
Internal Med Progress Note Date of Service: Mar 09, 2017. Provider Documentation: SUBJECTIVE: Patient is doing better. No chest pain, fever, chills, nausea, vomiting, diarrhea Tolerated CPAP OBJECTIVE: Vital Signs-as noted below Exam: General-AAOX3, No distress, Morbidly obese + HEENT- CPAP + Eyes-No icterus Neck-Supple Lungs-AEBE, no wheezing Heart-S1, S2 normal, no murmurs Extremities-No edema Lab data as noted below. CT CHEST : IMPRESSION: 1. Significantly streak and motion degraded examination. 2. There is no evidence of pulmonary embolus in the main, lobar, or proximal segmental pulmonary arteries. 3. There are nonspecific patchy airspace opacities identified in the right lower lobe. Is a represent a mild infectious/inflammatory pneumonitis but is not well characterized. Clinical correlation will be required. A follow-up chest CT is recommended in 3 months time to document resolution and to better assess the lung parenchyma. 4. There are mildly enlarged mediastinal and supraclavicular lymph nodes. These are nonspecific and may be reactive. These can also be reassessed at follow-up. ASSESSMENT & PLAN: ASSESSMENT & PLAN : 56F with hx of DM, Obesity presented with Pneumonia. Workup negative except for CO2 elevation on ABGs. Patient has sleep study scheduled in MARCH. PNEUMONIA, Community acquired : -Afebrile, leucocytosis improved -On Levofloxacin IV --> changed to PO -Continue with PO steroids- taper -CT chest- There are nonspecific patchy airspace opacities identified in the right lower lobe. Is a represent a mild infectious/inflammatory pneumonitis but is not well characterized. Clinical correlation will be required. A follow-up chest CT is recommended in 3 months time to document resolution and to better assess the lung parenchyma. There are mildly enlarged mediastinal and supraclavicular lymph nodes. HYPOXIA - Likely secondary to morbid obesity/Obesity hypoventilation syndrome, Probable KENDRA -ABGs - elevated co2 in 60s, CT scan- no PE, Infiltrate -Scheduled for outpatient sleep study in March end, but needs to be on it sooner. Making arrangements for BIPAP on discharge. -Nocturnal pulse oximetry study done on L, ABGs- qualifies her for BIPAP -Will need outpatient sleep study. -Pulmonary on board EPISODIC CONFUSION- Resolved Note on 03/06/17 - resolved by itself. -Secondary to hypoxia ? -ABGs done - improved today DM Type 2 Recent Hba1c 10.5 (12/23/16)- Uncontrolled DM Hold oral meds -On NPH 70/30 -Insulin coverage -Pharmacy consult for glycemic control and appreciate inputs LEFT HIP BURSITIS - Improved Recent steroid shot - didn't help -Ortho consulted- no intervention needed as per patient it has already improved DEPRESSION -continue current home meds -stable FIBROMYALGIA -Continue Cymbalta and Flexeril INSOMNIA -Continue clonazepam -decreased from 2 mg to 1 mg daily DVT PROPHYLAXIS -Lovenox SQ CODE STATUS - FULL CODE DISPOSITION Tolerated ambulation well -2 step ordered- awaiting results -BIPAP to be arranged for prior to discharge -Follow up CT scan chest in 3 months -Follow up with PCP/Pulmonary outpatient Discussed with Dr Keene, solar installation manager for BIPAP arrangements. Will be done by today Okay to discharge home tomorrow Vital Signs: Date Time Temp Pulse Resp B/P Pulse Ox O2 Delivery O2 Flow Rate FiO2 03/09/17 17:04 84 Room Air 03/09/17 17:04 93 Nasal Cannula 2.0 03/09/17 15:43 91 Room Air 03/09/17 15:30 93 Room Air 03/09/17 14:47 36.4 110 18 112/73 92 Nasal Cannula 2.0 03/09/17 11:06 101 16 93 Nasal Cannula 2.0 03/09/17 08:00 93 Nasal Cannula 2.0 03/09/17 07:43 97 16 93 Nasal Cannula 2.0 03/09/17 07:19 36.3 104 20 142/97 91 2.0 03/09/17 00:00 Nasal Cannula 2.0 03/08/17 23:22 36.7 104 20 139/77 93 Nasal Cannula 2.0 03/08/17 19:10 112 16 94 Room Air Lab Results: Results Past 24 Hours Test 03/08/17 19:50 03/08/17 23:59 03/09/17 03:30 03/09/17 07:18 Range/Units Bedside Glucose 230 136 82 70-90 mg/dl White Blood Count 12.81 4.8-10.8 K/uL Red Blood Count 5.00 4.2-5.4 M/uL Hemoglobin 13.9 12.0-16.0 g/dL Hematocrit 44.2 37-47 % Mean Corpuscular Volume 88.4 80-100 fL Mean Corpuscular Hemoglobin 27.8 25-34 pg Mean Corpuscular Hemoglobin Concent 31.4 32-36 g/dl Platelet Count 306 130-400 K/uL Mean Platelet Volume 9.2 7.4-10.4 fL Neutrophils (%) (Auto) 66.4 % Lymphocytes (%) (Auto) 27.1 % Monocytes (%) (Auto) 5.1 % Eosinophils (%) (Auto) 1.0 % Basophils (%) (Auto) 0.2 % Neutrophils # (Auto) 8.51 1.4-6.5 K/uL Lymphocytes # (Auto) 3.47 1.2-3.4 K/uL Monocytes # (Auto) 0.65 0.11-0.59 K/uL Eosinophils # (Auto) 0.13 0-0.5 K/uL Basophils # (Auto) 0.02 0-0.2 K/uL RDW Standard Deviation 47.6 36.4-46.3 fL RDW Coefficient of Variation 14.9 11.5-14.5 % Immature Granulocyte % (Auto) 0.2 % Immature Granulocyte # (Auto) 0.03 0.00-0.02 K/uL Sodium Level 140 136-145 mmol/L Potassium Level 4.3 3.5-5.1 mmol/L Chloride Level 100 98-107 mmol/L Carbon Dioxide Level 36 21-32 mmol/L Anion Gap 4.0 3-11 mmol/L Blood Urea Nitrogen 18 7-18 mg/dl Creatinine 0.74 0.60-1.20 mg/dl Est Creatinine Clear Calc Drug Dose 105.2 ml/min Estimated GFR () 106.5 Estimated GFR (Non- 91.8 BUN/Creatinine Ratio 24.3 09-08 Random Glucose 174 70-99 mg/dl Calcium Level 8.9 8.5-10.1 mg/dl Magnesium Level 2.5 1.8-2.4 mg/dl Test 03/09/17 07:40 03/09/17 11:21 03/09/17 14:00 03/09/17 15:51 Range/Units Bedside Glucose 158 200 138 70-90 mg/dl Arterial Blood pH 7.44 7.35-7.45 Arterial Blood Partial Pressure CO2 49 35-46 mmHg Arterial Blood Partial Pressure O2 63 80-95 mm/Hg Arterial Blood HCO3 33 19-24 mmol/L Arterial Blood Oxygen Saturation 91.1 90-95 % Arterial Blood Base Excess 7.3 -9-1.8 mEq/L Arterial Blood Gas Delivery RA Hayden Test POS POS
[2017-03-09] MEDS: METFORMIN HCL 500 MG TAB PO SCH (18:25)
[2017-03-09] MEDS: LEVOFLOXACIN 750 MG TAB PO SCH (18:25)
[2017-03-09] MEDS: CYCLOBENZAPRINE HCL 10 MG TAB PO SCH (21:24)
[2017-03-09] MEDS: DULOXETINE HCL 60 MG CAP PO SCH (21:30)
[2017-03-09] MEDS: CLONAZEPAM 1 MG TAB PO PRN (21:32)
[2017-03-10] VITALS (7 sets, daily range): BP systolic 170; BP diastolic 93; PULSE 97–111; TEMP 36.4; O2SAT 90–96
[2017-03-10] MEDS: INSULIN ASPART 100 UNITS/ML 3 ML PEN SC SCH ×4 (04:00→11:00)
[2017-03-10] MEDS: ALBUT/IPRATROP 3MG/0.5MG NEB 3 ML VIAL INH SCH ×3 (07:36→15:25)
[2017-03-10] MEDS ORDERED: PIOGLITAZONE TAB 15 MG TAB PO SCH (08:00)
[2017-03-10] MEDS: BECLOMETHASONE DIP HFA 80 MCG 8.7G INH INH SCH (08:18)
[2017-03-10] MEDS: LISINOPRIL 20 MG TAB PO SCH (08:18)
[2017-03-10] MEDS: PRAVASTATIN SOD 20 MG TAB PO SCH (08:19)
[2017-03-10] MEDS: METFORMIN HCL 500 MG TAB PO SCH (08:19)
[2017-03-10] MEDS: ARIPIprazole TAB 15 MG TAB PO SCH (08:20)
[2017-03-10] MEDS: ENOXAPARIN 40 MG/0.4 ML SYR SQ SCH (08:20)
[2017-03-10] MEDS: INSULIN GLARGINE SOLOSTAR 100 UNITS/ML 3 ML PEN SC SCH (08:31)
--- NOTE | 2017-03-10 09:17 | Pharmacy Progress Note ---
Glycemic Control: Progress Nt Date of Service Mar 10, 2017. Scope Glycemic Pharmacist consulted by Dr Patel on 03/04/17 for glycemic control and to write orders per [facility] inpatient glycemic control protocol. Objective Accuchecks BSG (last 24hrs): Test 03/09/17 11:21 03/09/17 15:51 03/09/17 20:48 03/10/17 00:33 Bedside Glucose 200 mg/dl (70-90) 138 mg/dl (70-90) 182 mg/dl (70-90) 124 mg/dl (70-90) Test 03/10/17 04:05 03/10/17 07:45 Bedside Glucose 98 mg/dl (70-90) 116 mg/dl (70-90) HbA1c: 10.5% 12/2016 Recent Pertinent Medications Outpatient Anti-diabetic Regimen: * Novolin 70/30 mixed insulin * 90 units SQ BID with meals * Metformin 1000mg PO BID * Actos 15mg PO daily * A1c = 10.5 % (12/23/16) per H&P The patient is currently receiving: * Basal insulin: Lantus SQ BID; 25 units if BSG less than 110, 30 units if BSG 110-180, 35 units if BSG greater than 180 * Correctional Insulin: Novolog Correction per scale ACHS and at 0000 + 0400 Goal Range: Low 120 mg/dL - High 140 mg/dL Correction Factor: 9 mg/dL/unit * Prandial insulin: Per carb ratio of 1 unit per 3 grams CHO consumed * Oral Agents: Metformin 1gm PO BID; Pioglitazone 15mg PO daily Risk Factors for Insulin Resistance: * Steroids: Prednisone 30mg daily * Infection: receiving Levofloxacin PO * Pressors: n/a * IVF: n/a * Recent Surgery: n/a * Diet: ordered T2DM diet and tolerating well per carb counts; only consumed 17gm CHO this AM however * Mechanical Ventilation: n/a Assessment & Plan ASSESSMENT: Background: * 56yo T2DM female with poor outpatient control per recent A1c stated in H&P * Outpatient regimen is premixed basal/prandial insulin of Novolin 70/30 mix insulin. * Pre-mixed insulin is difficult to titrate since it is already in a fixed distribution of basal:prandial insulin. Continuing pre-mixed insulin for admission typically lead to hypoglycemia d/t changing PO status but rapid acting insulin is unable to be held * Unable to titrate premixed insulin for steroid induced hyperglycemia therefore, outpatient regimen was held on admission and pt initiated on SQ basal bolus insulin regimen with Lantus + NovoLog (CF+CR) * Pt with persistent hyperglycemia since admission d/t steroids and missed basal insulin dose 4/15 PM 03/08/17 * Patient is currently receiving an average of 150 units of insulin per day. * ~ 65 units of basal insulin * ~ 101 units of prandial/correctional insulin * BSGs ranging 95 - 274mg/dl over the past 24hrs * Anticipating insulin regimen will need re-distributed now that steroids tapered to once daily prednisone * AM Fasting BSG = 199mg/dl therefore Basal insulin needs increased slightly . Do not want to cover steroid induced hyperglycemia with long acting insulin as hypoglycemia can occur when steroids tapered and pt still has extra basal insulin on board. Outpatient insulin dosing is 180units/day in a 70%:30% distribution of basal:prandial insulin. This correlates to 126 units of basal insulin per day. Do not want to use this much basal insulin in house as outpatient basal insulin is most likely also covering some prandial needs. Prefer a 40%:60% distribution of basal:prandial insulin for steroid induced hyperglycemia. Regardless, patient is receiving ~ 50% of outpatient basal insulin dosing so we have some room to continue to titrate upwards * Post-prandial BSGs are elevated/BSGs rise throughout the day therefore Tighten CF/CR & lower goal range slightly (based on age and comorbidities). Tight glycemic control necessary to facilitate infection healing 03/09/17 * Steroids continue to be tapered -> Prednisone decreased from 40 mg to 30 mg PO daily * BSGs ranged from 82 to 230 mg/dL over the last 24 hours. * Fasting BSG improved today. Continue current basal insulin dosing. * Post prandial BSGs also slightly improved with tightening of novolog CF and CR yesterday. * At this time, outpatient oral antidiabetic medications will be resumed. * No change to insulin since steroid dose was decreased and oral agents are being resumed. 03/10/17: * Glycemic control acceptable over last 24 hours; BSGs ranged 98-200 * Fasting BSG 116 this AM w/ 60 units of basal on board; NOTE: patient was given shelby crackers w/ peanut butter at 0400 overnight b/c pt had c/o feeling like her blood sugar was "low"; BSG at the time had been 98. Given the patient' s subjective c/o hypoglycemia and BSG less than 100 overnight will titrate the basal dose downward ~10% at this time. She did restart her oral hypoglycemics, would anticipate metformin to lower fasting BSGs with continued dosing - will be vigilant for falling fasting BSG * CF and CR performed well for 2 of 3 post-prandial BSGs; will continue and monitor for trends; pre-lunch elevation may have been due to "negative insulin", i.e. subtraction of insulin units w/ breakfast due to BSG being below goal range PLAN FOR INPATIENT GLYCEMIC CONTROL: * Decreasing Lantus to 27 units SQ BID; give only 22 units if BSG less than 110 * Continuing correction factor 9 mg/dl/unit * Continuing carb ratio 1 unit per 3 grams CHO consumed * Changing goal range to Low 110 mg/dL - High 140 mg/dL * Please note that the plan above was derived based on current level of insulin resistance and hospital stress. These recommendations are appropriate for inpatient admission only. Plan of care upon discharge will need to be reassessed to avoid potential outpatient hypo/hyperglycemia. Thank you.
[2017-03-10] MEDS: DULOXETINE HCL 20 MG CAP PO SCH (10:05)
--- NOTE | 2017-03-10 12:19 | Progress Note ---
Internal Med Progress Note Date of Service: Mar 10, 2017. Provider Documentation: SUBJECTIVE: Patient is doing better. Cough has improved No chest pain, fever, chills, nausea, vomiting, diarrhea Tolerated CPAP at night On oxygen OBJECTIVE: Vital Signs-as noted below Exam: General-AAOX3, No distress, Morbidly obese + HEENT- CPAP + Eyes-No icterus Neck-Supple Lungs-AEBE, no wheezing Heart-S1, S2 normal, no murmurs Extremities-No edema Lab data as noted below. CT CHEST : IMPRESSION: 1. Significantly streak and motion degraded examination. 2. There is no evidence of pulmonary embolus in the main, lobar, or proximal segmental pulmonary arteries. 3. There are nonspecific patchy airspace opacities identified in the right lower lobe. Is a represent a mild infectious/inflammatory pneumonitis but is not well characterized. Clinical correlation will be required. A follow-up chest CT is recommended in 3 months time to document resolution and to better assess the lung parenchyma. 4. There are mildly enlarged mediastinal and supraclavicular lymph nodes. These are nonspecific and may be reactive. These can also be reassessed at follow-up. ASSESSMENT & PLAN: ASSESSMENT & PLAN : 56F with hx of DM, Obesity presented with Pneumonia. Workup negative except for CO2 elevation on ABGs. Patient has sleep study scheduled in MARCH. PNEUMONIA, Community acquired : -Afebrile, leucocytosis improved -On Levofloxacin IV --> changed to PO and completed course of antibiotics for 7 days today. -Continue with PO steroids- taper -CT chest- There are nonspecific patchy airspace opacities identified in the right lower lobe. Is a represent a mild infectious/inflammatory pneumonitis but is not well characterized. Clinical correlation will be required. A follow-up chest CT is recommended in 3 months time to document resolution and to better assess the lung parenchyma. There are mildly enlarged mediastinal and supraclavicular lymph nodes. HYPOXIA - Likely secondary to morbid obesity/Obesity hypoventilation syndrome, Probable KENDRA, pneumonia -ABGs - Elevated co2 in 60s, CT scan- no PE, Infiltrate -Nocturnal pulse oximetry study done on 2 L, ABGs- qualifies her for BIPAP and home oxygen -Scheduled for outpatient sleep study in March end, but needs to be on it sooner. Made arrangements for BIPAP on discharge. Discussed with Dr Keene who helped make arrangements for BIPAP. -Will need outpatient sleep study. -Pulmonary on board EPISODIC CONFUSION- Resolved Note on 03/06/17 - resolved by itself. -Secondary to hypoxia ? -ABGs done - Improved DM Type 2 Recent Hba1c 10.5 (12/23/16)- Uncontrolled DM Hold oral meds -On NPH 70/30 -Insulin coverage -Pharmacy consult for glycemic control and appreciate inputs LEFT HIP BURSITIS - Improved Recent steroid shot - didn't help -Ortho consulted- no intervention needed as per patient it has already improved DEPRESSION -continue current home meds -stable FIBROMYALGIA -Continue Cymbalta and Flexeril INSOMNIA -Continue clonazepam -decreased from 2 mg to 1 mg daily DVT PROPHYLAXIS -Lovenox SQ CODE STATUS - FULL CODE DISPOSITION Tolerated ambulation well -2 step ordered- 2 L at rest/ambulation and 3 L at night. -BIPAP arranged for outpatient -Follow up CT scan chest in 3 months -Follow up with PCP/Pulmonary outpatient Vital Signs: Date Time Temp Pulse Resp B/P Pulse Ox O2 Delivery O2 Flow Rate FiO2 03/10/17 11:35 110 16 92 Nasal Cannula 2.0 03/10/17 10:00 93 Nasal Cannula 2.0 03/10/17 07:16 110 16 93 Nasal Cannula 2.0 03/10/17 07:02 36.4 97 20 170/93 90 Nasal Cannula 2.0 03/10/17 00:00 96 Nasal Cannula 2.0 03/09/17 23:57 99 96 3.0 03/09/17 23:07 36.8 105 20 109/70 94 Nasal Cannula 2.0 03/09/17 20:00 96 Nasal Cannula 2.0 03/09/17 19:24 101 16 96 Nasal Cannula 2.0 03/09/17 17:04 84 Room Air 03/09/17 17:04 93 Nasal Cannula 2.0 03/09/17 15:43 91 Room Air 03/09/17 15:30 93 Room Air 03/09/17 14:47 36.4 110 18 112/73 92 Nasal Cannula 2.0 Lab Results: Results Past 24 Hours Test 03/09/17 14:00 03/09/17 15:51 03/09/17 20:48 03/10/17 00:33 Range/Units Arterial Blood pH 7.44 7.35-7.45 Arterial Blood Partial Pressure CO2 49 35-46 mmHg Arterial Blood Partial Pressure O2 63 80-95 mm/Hg Arterial Blood HCO3 33 19-24 mmol/L Arterial Blood Oxygen Saturation 91.1 90-95 % Arterial Blood Base Excess 7.3 -9-1.8 mEq/L Arterial Blood Gas Delivery RA Hayden Test POS POS Bedside Glucose 138 182 124 70-90 mg/dl Test 03/10/17 04:05 03/10/17 07:45 03/10/17 11:16 Range/Units Bedside Glucose 98 116 117 70-90 mg/dl
[2017-03-10] MEDS ORDERED: PRED10TA PO ×2 (12:23→12:31)
[2017-03-10] MEDS ORDERED: IPRASOL4 INH (12:23)
[2017-03-10] MEDS ORDERED: ALBU18002 INH (12:23)
--- NOTE | 2017-03-10 12:30 | Discharge Instructions ---
Discharge Instructions Date of Service Mar 10, 2017. Admission Reason for Admission: Shortness Of Breath Discharge Discharge Diagnosis / Problem: 1. Pneumonia, Community acquired 2. Obesity hypoventilation syndrome Discharge Goals Goal(s): Improve disease control, Prevent Disease Progression Activity Recommendations Activity Limitations: resume your previous activity (as tolerated before) . Instructions / Follow-Up Instructions / Follow-Up MEDICATION CHANGES: 1. New medication: Prednisone 30 mg daily x 3 days f/b 20 mg daily x 3 days f/b 10 mg daily x 3 days and than discontinue 2. Completed course of antibitics for pneumonia while in hospital. No need for more doses of levofloxacin BIPAP to be used every night as per instructions Oxygen 2 L at rest and during activity, 3 L during night No need for sleep study on April 18- please cancel the appt FOLLOW UP 1. Follow up with Dr Leavitt- 03/14/17 at 10:45 AM 2. Follow up with Dr Keene in 1 month. We will make arrangements for follow up appt Current Hospital Diet Patient's current hospital diet: Diabetes Type 2 Diet Discharge Diet Recommended Diet: AHA Diet (Heart Healthy), Low Sodium Diet (2gm Na), Diabetes Type 2 Diet, Low Fat Diet Pending Studies Studies pending at discharge: no Medical Emergencies . Who to Call and When: Medical Emergencies: If at any time you feel your situation is an emergency, please call 911 immediately. . Non-Emergent Contact Non-Emergency issues call your: Primary Care Provider . . "Provider Documentation" section prepared by Davina Rouse. . VTE Core Measure Inpt VTE Proph given/why not?: Enoxaparin (Lovenox)SQ
[2017-03-10] MEDS ORDERED: PRLSR20 PO (12:32)
--- NOTE | 2017-03-10 12:36 | Discharge Summary ---
Discharge Summary Date of Service Mar 10, 2017. Discharge Summary Admission Date: Mar 04, 2017 at 20:03 Discharge Date: Mar 10, 2017 Discharge Disposition: Home with services Principal Diagnosis: 1. Pneumonia, Community acquired 2. Acute hypoxic/hypercapenic failure, multifactorial 3. Obesity hypoventilation syndrome 4. Morbid obesity 5. Probable KENDRA Secondary Diagnoses/Problems: 1. DM-2 2. Depression 3. Fibromyalgia Procedures: CXR CT head CT scan chest BIPAP /CPAP use Oxygen supplementation 2 step Nocturnal pulse oximetry study x 2 ABGs serial Nebs antibiotics steroids PT Consultations: Pulmonary, Dr Keene Pending Studies/Follow-Up: Instructions / Follow-Up Instructions / Follow-Up MEDICATION CHANGES: 1. New medication: Prednisone 30 mg daily x 3 days f/b 20 mg daily x 3 days f/b 10 mg daily x 3 days and than discontinue 2. Completed course of antibitics for pneumonia while in hospital. No need for more doses of levofloxacin -BIPAP to be used every night as per instructions -Oxygen 2 L at rest and during activity, 3 L during night -No need for sleep study on April 18- please cancel the appt -CT scan chest needs to be done in 3 months to ensure resolution of lymphadenopathy (pulmonary will follow up) FOLLOW UP 1. Follow up with Dr Leavitt- 03/14/17 at 10:45 AM 2. Follow up with Dr Keene in 1 month. We will make arrangements for follow up appt Medication Reconciliation New Medications: Omeprazole (Prilosec) 20 Mg Capcr 20 MG PO DAILY for 30 Days, #30 CAP To be taken while you are on steroids Prednisone Tab (Prednisone) 10 Mg Tab 10 MG PO UD for 20 Days, #15 TAB Take 30 mg po daily x 3 days followed by 20 mg daily x 3 days f/b 10 mg daily x 3 days and than discontinue Ipratropium-Albuterol (Duoneb) 3 Ml Nebu 3 ML INH QIDR PRN for sob/wheezing for 30 Days, #1 INHA 2 Refills 30 day supply Changed Medications: Albuterol Sulfate (Proair Respiclick) 108 Mcg/Act Aer 2 PUFF INH QID PRN for sob/wheezing for 30 Days, #1 INHALER (Medication details modified) Continued Medications: Aripiprazole (Abilify) 30 Mg Tab 1 TAB PO QAM, TAB 2 Refills Beclomethasone Dip (Qvar) 80 Mcg/Act Aer 2 PUFF INH BID Clonazepam (Klonopin) 2 Mg Tab 1 MG PO HS PRN for Insomnia take 1 to 2 tab prn at hs Cyclobenzaprine Hcl (Flexeril) 5 Mg Tab 10 MG PO HS PRN Cyproheptadine Hcl (Periactin) 4 Mg Tab 4 MG PO TID PRN for Agitation, TAB Duloxetine Hcl (Cymbalta) 60 Mg Cap 60 MG PO HS Duloxetine HCl (Cymbalta) 20 Mg Cap 80 MG PO QAM Insulin Human Isophan/Regular (Novolin 70/30) Inj 90 UNITS SC BID Lamotrigine (Lamictal) 25 Mg Tab 50 MG PO DAILY, TAB Lisinopril (Lisinopril) 20 Mg Tab 20 MG PO DAILY, TAB Metformin HCl (Metformin HCl) 500 Mg Tab 1000 MG PO BID, TAB Pioglitazone (Actos) 30 Mg Tab 0.5 TAB PO DAILY, TAB 5 Refills Pravastatin (Pravachol ) 20 Mg Tab 40 MG PO DAILY, TAB Admission Information HPI (per Admitting provider): 56 year old female with PMH of DM Type 2, fibromyalgia, Depression was sent to the ER after seeing her PCP today for worsening SOB. Pt said that for the last few days she has been having SOB associated with dark greenish productive cough. Pt said that she does have some chest wall tenderness when coughing. She said that the last she had pneumonia was 2 yrs ago. she denies any palpitation, dizziness, diarrhea, fever and chills. she quits smoking about 4 yrs ago. Physical Exam (per Admitting): General Appearance: WD/WN, no apparent distress Head: normocephalic, atraumatic Eyes: PERRL, EOMI, sclerae normal ENT: normal ENT inspection, hearing grossly normal Neck: supple, no JVD Respiratory/Chest: no respiratory distress, no accessory muscle use, + wheezing Cardiovascular: no JVD, no murmur, + tachycardia Abdomen/GI: normal bowel sounds, non tender, soft Back: normal inspection, no CVA tenderness Extremities/Musculoskelatal: normal inspection, no calf tenderness, no pedal edema Neurologic/Psych: no motor/sensory deficits, alert, normal mood/affect, oriented x 3 Skin: normal color, warm/dry, no rash Hospital Course ASSESSMENT & PLAN : 56F with hx of DM, Obesity presented with Pneumonia. Workup negative except for CO2 elevation on ABGs. Patient has sleep study scheduled in MARCH. PNEUMONIA, Community acquired : -Afebrile, leucocytosis improved -On Levofloxacin IV --> changed to PO and completed course of antibiotics for 7 days today. -Continue with PO steroids- taper -CT chest- There are nonspecific patchy airspace opacities identified in the right lower lobe. Is a represent a mild infectious/inflammatory pneumonitis but is not well characterized. Clinical correlation will be required. A follow-up chest CT is recommended in 3 months time to document resolution and to better assess the lung parenchyma. There are mildly enlarged mediastinal and supraclavicular lymph nodes. HYPOXIA - Likely secondary to morbid obesity/Obesity hypoventilation syndrome, Probable KENDRA, pneumonia -ABGs - Elevated co2 in 60s, CT scan- no PE, Infiltrate -Nocturnal pulse oximetry study done on /2 L, ABGs- qualifies her for BIPAP and home oxygen -Scheduled for outpatient sleep study in March end, but needs to be on it sooner. Made arrangements for BIPAP on discharge. Discussed with Dr Keene who helped make arrangements for BIPAP. -Will not need sleep study now so can be cancelled -Pulmonary on board EPISODIC CONFUSION- Resolved Note on 03/06/17 - resolved by itself. -Secondary to hypoxia ? -ABGs done - Improved DM Type 2 Recent Hba1c 10.5 (12/23/16)- Uncontrolled DM Hold oral meds -On NPH 70/30 -Insulin coverage -Pharmacy consult for glycemic control and appreciate inputs LEFT HIP BURSITIS - Improved Recent steroid shot - didn't help -Ortho consulted- no intervention needed as per patient it has already improved DEPRESSION -continue current home meds -stable FIBROMYALGIA -Continue Cymbalta and Flexeril INSOMNIA -Continue clonazepam -decreased from 2 mg to 1 mg daily DVT PROPHYLAXIS -Lovenox SQ CODE STATUS - FULL CODE DISPOSITION Tolerated ambulation well -2 step ordered- 2 L at rest/ambulation and 3 L at night. -BIPAP arranged for outpatient -Follow up CT scan chest in 3 months -Follow up with PCP/Pulmonary outpatient Discussed with Dr Keene about discharge plan Total time spent on discharge = 45 minutes This includes examination of the patient, discharge planning, medication reconciliation, and communication with other providers. Discharge Instructions Discharge Discharge Diagnosis / Problem: 1. Pneumonia, Community acquired 2. Obesity hypoventilation syndrome Discharge Goals Goal(s): Improve disease control, Prevent Disease Progression Activity Recommendations Activity Limitations: resume your previous activity (as tolerated before) . Instructions / Follow-Up Instructions / Follow-Up MEDICATION CHANGES: 1. New medication: Prednisone 30 mg daily x 3 days f/b 20 mg daily x 3 days f/b 10 mg daily x 3 days and than discontinue 2. Completed course of antibitics for pneumonia while in hospital. No need for more doses of levofloxacin BIPAP to be used every night as per instructions Oxygen 2 L at rest and during activity, 3 L during night No need for sleep study on April 18- please cancel the appt FOLLOW UP 1. Follow up with Dr Leavitt- 03/14/17 at 10:45 AM 2. Follow up with Dr Keene in 1 month. We will make arrangements for follow up appt Current Hospital Diet Patient's current hospital diet: Diabetes Type 2 Diet Discharge Diet Recommended Diet: AHA Diet (Heart Healthy), Low Sodium Diet (2gm Na), Diabetes Type 2 Diet, Low Fat Diet Pending Studies Studies pending at discharge: no Medical Emergencies . Who to Call and When: Medical Emergencies: If at any time you feel your situation is an emergency, please call 911 immediately. . Non-Emergent Contact Non-Emergency issues call your: Primary Care Provider . . "Provider Documentation" section prepared by Davina Rouse. . VTE Core Measure Inpt VTE Proph given/why not?: Enoxaparin (Lovenox)SQ
--- NOTE | 2017-03-10 12:56 | PULMONARY PROGRESS NOTE ---
DATE: 03/10/2017 TIME: 12:40 p.m. SUBJECTIVE: The patient is feeling much better. She is more alert. She is less short of breath. She is hoping to get home today. Unfortunately, she only wore BiPAP for about an hour and a half last night. She states that the mask was leaking. She is a side sleeper. I explained to her that she needs to wear her BiPAP when she gets home for most of the night. We have discussed with the care managers about getting her machine from home and I believe that has been approved. She is to go on auto BiPAP. OBJECTIVE: GENERAL: The patient appears comfortable. She was cooperative, alert and oriented. She is afebrile. VITAL SIGNS: Heart rate remains elevated. It was approximately 100 at the time of this exam, but earlier today that had been 110. Blood pressure is elevated at 170/93. LUNGS: [place] were clear bilaterally. Respiratory rate was 16 breaths per minute. ABDOMEN: Soft. It was obese. LABORATORY DATA: ABG done yesterday afternoon showed a pH of 7.44 with a pCO2 of 49 and a pO2 of 63. This was done on room air. The carbon dioxide levels have improved moderately. Previously, it had been 63. Blood sugar today was 117. IMPRESSIONS: 1. Respiratory failure -- acute on chronic with hypoxia and hypercarbia -- improved. 2. Right lung pneumonia. 3. Obesity hypoventilation syndrome. 4. Asthma by history. 5. Obstructive sleep apnea. 6. Mediastinal adenopathy. COMMENTS AND RECOMMENDATIONS: Case was discussed with Dr. Rouse. The patient is being discharged. We did arrange for her to get an auto BiPAP with maximum pressure of 20 and minimum of 5. She is to follow up with me in the office in 1-2 months. She will need a followup CAT scan of the chest in about 3 months. If she does well with the BiPAP, she likely will not need to have a sleep study done.
[2017-03-10] MEDS: NAPROXEN 250 MG TAB PO PRN (14:08)
[2017-03-10] MEDS ORDERED: INSULIN GLARGINE SOLOSTAR 100 UNITS/ML 3 ML PEN SC SCH (20:00)
== END 2017-03-10 16:01 | disposition home or self-care (01) | DRG 193 ==
LOC: ENRESERVTM → ENRESERVDT → C.EDB 16:57 → C.MS4W 20:03
PROVIDERS: ADMIT Internal Medicine; ATTEND Internal Medicine
DX: J18.9 Pneumonia, unspecified organism (principal); J96.21 Acute and chronic respiratory failure with hypoxia; J96.22 Acute and chronic respiratory failure with hypercapnia; G93.40 Encephalopathy, unspecified; E66.2 Morbid (severe) obesity with alveolar hypoventilation; Z68.42 Body mass index [BMI] 45.0-49.9, adult; J45.909 Unspecified asthma, uncomplicated; E11.65 Type 2 diabetes mellitus with hyperglycemia; M70.62 Trochanteric bursitis, left hip; R59.0 Localized enlarged lymph nodes; F32.9 Major depressive disorder, single episode, unspecified; M79.7 Fibromyalgia; G47.00 Insomnia, unspecified; I10 Essential (primary) hypertension; Z87.01 Personal history of pneumonia (recurrent); Z87.891 Personal history of nicotine dependence; Z79.4 Long term (current) use of insulin; Z79.51 Long term (current) use of inhaled steroids; Z79.84 Long term (current) use of oral hypoglycemic drugs; Z79.899 Other long term (current) drug therapy; Z88.0 Allergy status to penicillin; Z88.5 Allergy status to narcotic agent; Z80.1 Family history of malignant neoplasm of trachea, bronchus and lung

== ENCOUNTER → 2017-05-05 | Outpatient (CLI) | payer OTHER ==
[~2017-05-05] MED LIST: ACT30 PO; ALBU18002 INH; ARIP30TA3 PO; CLON2TAB3 PO; CYCL5TAB PO; CYPR4TAB31 PO; DULO-24 PO; DULO60CA44 PO; GLC500 PO; INSU70IN2 SC; IPRASOL4 INH; LAMO25TA PO; LSN20 PO; PRAV20TA PO; PRED10TA PO; QVRINH80 INH
--- NOTE | 2017-05-06 06:39 | SPLIT NIGHT TECHNICIAN REPORT ---
[facility] Split Night Polysomnogram - Bus Matron Report Study date: 05/05/2017 Referring Physician: Stacy Mendiola PA-C Name: YAMILETH REYES Bus Matron: Jeanette Valdes [facility]. Date of : 1960 Height: 56 years, Height 5' 2.5" Sex: Female Weight: 258 lbs Age: 56 BMI: Medications: 46.43 METFORMIN 1000 MG, CYCLOBENZAPRINE 5 MG, CLONAZEPAM 1 MG, ONETOUCH ULTRA SYSTEM, NOVOLIN 70/30, DULOXETINE 20 MG, PRAVASTATIN 40 MG, ARIPIPRAZOLE 20 MG, PIOGLITAZONE 15 MG, LISINOPRIL 20 MG, TANZEUM 50 MG, VENTOLIN HFA, IPRATROPIUM-ALBUTEROL Patient History 56 yr-old female here for a baseline/split study. She has a history of excessive daytime sleepiness and falling asleep at inappropriate times. She was in the hospital for pneumonia and was set home with an auto BiPAP machine based on ABG levels. Her Grant scale is 20. The test was started on room air. ETCO2 testing is included in this study. Room 1 Parameters Monitored NPSG: E1-M2, E2-M1, Fp1-M2, Fp2-M1, F3-M2, F4-M2, F4-M1, C3-M2, C4-M2, C4-M1, O1-M2, O2-M2, O2-M1, T3-M2, T4-M1, P3-M2, P4-M1, CHIN1, CHIN2, HR, EKG, Legs, PFLOW, SNOR, FLOW, CFLOW, Tidal Volume, THOR, ABDO, SpO2, PLTH, CPRESS, ETCO2 Wave, ETCO2, pH SLEEP SUMMARY DATA DIAGNOSTIC TREATMENT Lights Out: 10:50:58 PM 1:47:58 AM Lights On: 1:40:28 AM 5:21:28 AM Total Recording Time (TRT): 169.5 min. 213.5 min. Total Sleep Time (TST): 120.5 min. 205.0 min. NREM Time: 120.5 min. 205.0 min. REM Time: 0.0 min. 0.0 min. Sleep Period Time (SPT): 133.5 min. 207.0 min. Sleep Efficiency (SE): 71 % 96 % Sleep Latency: 36.0 min. 2.0 min. Arousal Index: 44.3 5.0 PAP Treatment Levels: 4, 6, 8, 10 * Optimal Pressure(s) SLEEP STAGING DATA DIAGNOSTIC TREATMENT Duration (min) TST % Duration (min) TST % Stage Wake: 49.0 min. -- 8.5 min. -- WASO: 13.0 min. -- 2.0 min. -- NREM: 120.5 min. 100 % 205.0 min. 100 % Stage N1: 22.5 min. 19 % 6.0 min. 3 % Stage N2: 93.0 min. 77 % 199.0 min. 97 % Stage N3: 5.0 min. 4 % 0.0 min. 0 % REM: 0.0 min. 0 % 0.0 min. 0 % POSITIONAL DATA Event Count Index Event Count Index Supine: 31 93.9 N/A N/A Supine NREM: 31 93.9 N/A N/A Supine REM: N/A N/A N/A N/A Non-Supine: 113 66.7 36 10.2 Non-Supine NREM: 113 66.7 36 10.2 Non-Supine REM: N/A N/A N/A N/A AROUSAL SUMMARY DATA: Event Count Index Event Count Index Apnea Arousals: 46 34.4 0 0.0 Hypopnea Arousals: 31 15.4 13 3.8 Snore Arousals: 3 1.5 1 0.3 PLM Arousals: 2 1.0 0 0.0 Non-Specific Arousals: 7 3.5 1 0.3 Total Arousals: 89 44.3 17 5.0 MYOCLONUS (PLM) Event Count Index Event Count Index PLM: 39 19.4 240 70.2 PLM AROUSAL: 2 1.0 0 0.0 PLM W/O AROUSAL 39 19.4 240 70.2 PLM W/RESP EVENT 14 0.0 6 0.0 MYOCLONUS (PLM) Event Count Index Event Count Index LM: 2 61.7 49 14.3 LM AROUSAL: 2 1.0 1 0.3 LM W/O AROUSAL LM W/RESP EVENT LM NON SPECIFIC 73 36.3 270 79.0 HEART RATE DATA DIAGNOSTIC TREATMENT Sleep (bpm): 111 110 REM (bpm): N/A N/A NREM (bpm): 90 91 Tachycardia Count: 0 0 Tachycardia Duration: 0.00 0 Bradycardia Count: 0 0 Bradycardia Duration: 0.00 0 DIAGNOSTIC PORTION TREATMENT PORTION RESPIRATORY DATA Event Count Index Event Count Index AHI: -- 71.2 -- 10.2 RDI: -- 71.7 -- 11 Obstructive Apnea: 69 34.4 0 0.0 Central Apnea: 0 0.0 0 0.0 Mixed Apnea: 0 0.0 0 0.0 Hypopnea: 74 36.8 35 10.2 RERA: 1 0.5 1 0.3 Total Apneas: 69 34.4 0 0.0 RESPIRATORY DATA REM NREM SLEEP REM NREM SLEEP Supine Position: Obstructive Apneas: N/A 27 27 N/A N/A N/A Central Apneas: N/A 0 0 N/A N/A N/A Mixed Apneas: N/A 0 0 N/A N/A N/A Hypopneas: N/A 4 4 N/A N/A N/A RERA N/A 0 0 N/A N/A N/A Total Supine Events: N/A 31 31 N/A N/A N/A Supine AHI: N/A 93.9 93.9 N/A N/A N/A Supine RDI: N/A 93.9 93.9 N/A N/A N/A REM NREM SLEEP REM NREM SLEEP Non-Supine Position: Obstructive Apneas: N/A 42 42 N/A 0 0 Central Apneas: N/A 0 0 N/A 0 0 Mixed Apneas: N/A 0 0 N/A 0 0 Hypopneas: N/A 70 70 N/A 35 35 RERA N/A 1 1 N/A 1 1 Total Supine Events: N/A 113 113 N/A 36 36 Supine AHI: N/A 66.7 66.7 N/A 10.2 10.2 Supine RDI: N/A 67.3 67.3 N/A 10.5 10.5 OXYGEN DESTAURATION DATA: Event Count Index Event Count Index REM Desaturations: N/A N/A N/A N/A NREM Desaturations: 147 73.2 36 10.5 SNORE DATA DIAGNOSTIC TREATMENT Snore Time: 8.7 1:49:58 AM Snore TST%: 4 8 Snore Arousal Count: 3 1 Snore Arousal Index: 1.5 0.3 Desaturation Event Summary: Minimum %SpO2 Event Count Mean/Min/Max Duration(sec.) Desaturation Index % Time In Bed > 90 177 19.8 / 6.5 / 55.0 48.2 57.5 86 - 90 103 15.9 / 5.0 / 47.0 52.7 30.7 81 - 85 13 16.7 / 5.8 / 46.0 21.1 9.7 76 - 80 0 N/A 0.0 2.1 71 - 75 0 N/A 0.0 0.0 66 - 70 0 N/A 0.0 0.0 61 - 65 0 N/A 0.0 0.0 56 - 60 0 N/A 0.0 0.0 51 - 55 0 N/A 0.0 0.0 < 50 0 N/A 0.0 0.0 OXYGEN SATURATION DATA DIAGNOSTIC TREATMENT SpO2 Mean Sleep: 90 % 91 % SpO2 Mean REM: N/A % N/A % SpO2 Mean NREM: 90 % 91 % SpO2 Minimum Sleep: 75 % 77 % SpO2 Minimum REM: N/A % N/A % SpO2 Minimum NREM: 75 % 77 % Time Below 90% (TST): 42.7 23.3 Time Below 88% (TST): 33.9 12.3 Total REM NREM Awake <50% 0.0 min. 0.0 min. 0.0 min. 0.0 min. 51 - 60% 0.0 min. 0.0 min. 0.0 min. 0.0 min. 61 - 70% 0.0 min. 0.0 min. 0.0 min. 0.0 min. 71 - 80% 8.3 min. 0.0 min. 7.0 min. 1.4 min. 81 - 90% 154.4 min. 0.0 min. 108.6 min. 45.8 min. 91 - 100% 220.1 min. 0.0 min. 210.0 min. 10.2 min. Average 90 0 90 88 Minimum SpO2 75 N/A 75 75 Desaturation Event Index 37.4 0.0 33.7 62.6 # Desat. Events below 89% 228 N/A 172 56 Time(%) with Saturation below 89% 23.6 0.0 14.3 9.3 Time(min.) with Saturation below 89% 90.2 0.0 54.7 35.5 Recording Bus Matron Comments: Ms. Reyes slept in the right, left, and supine positions. No cardiac arrhythmias were noted. PLMs were noted. No bruxism noted. Snoring was noted and scored as a 4 on a scale of 1 through 5. (0=no snoring, 5=snoring loud enough to be heard through a closed door or down the [address]iggins way) At 1:45 am, she met specific Split-Night criteria during the diagnostic portion of this study. CPAP was initiated on room air and at +4 CMH2O and up-titrated to a level of +10 CMH2O, Cflex 2 which nearly eliminated all respiratory events. Snoring still continued to occur. She did not obtain REM sleep. An AirFit F20 was used during titration She did not wake up to use the restroom during the night. Ms. Reyes stated that she slept better than usual. The final report will be interpreted and signed by a sleep physician. The completed physician report will then be placed in the patient medical record. Therapy Event: Therapy (cm H20) 0 4 6 8 10 Total Time at Pressure (min.) 128.2 6.2 18.8 76.3 112.3 TST at Pressure (min.) 116.0 4.2 16.8 76.3 107.8 # Periods 1 1 1 1 1 Sleep Onset (min.) 0.2 2.0 0.0 0.0 0.0 REM Onset (min.) N/A N/A N/A N/A N/A Sleep Efficiency % 90 67 89 100 96 Wakefulness (%) 9.5 32.4 10.6 0.0 4.0 Wakefulness (min.) 12.2 2.0 2.0 0.0 4.5 NREM 1 (%) 14.0 40.5 8.0 2.6 0.0 NREM 1 (min.) 18.0 2.5 1.5 2.0 0.0 NREM 2 (%) 72.5 27.0 81.4 97.4 96.0 NREM 2 (min.) 93.0 1.7 15.3 74.3 107.8 NREM 3 (%) 3.9 0.0 0.0 0.0 0.0 NREM 3 (min.) 5.0 0.0 0.0 0.0 0.0 REM (%) 0.0 0.0 0.0 0.0 0.0 REM (min.) 0.0 0.0 0.0 0.0 0.0 # Arousals 85 1 11 5 0 Arousal Index 44.0 14.4 39.3 3.9 0.0 # Snore 386 37 152 465 267 Snore Index 199.7 532.6 542.8 365.8 148.7 AHI 69.3 143.9 67.9 4.7 0.0 AHI Supine 93.9 N/A N/A N/A N/A AHI Non-Supine 64.2 143.9 67.9 4.7 0.0 NREM AHI 69.3 143.9 67.9 4.7 0.0 REM AHI N/A N/A N/A N/A N/A RDI 69.3 143.9 67.9 5.5 0.0 # Obstructive 69 0 0 0 0 # Central Ap 0 0 0 0 0 # Mixed 0 0 0 0 0 # Hypopneas 65 10 19 6 0 RERAS 0 0 0 1 0 Total Respiratory Events 134 10 19 7 0 Time Below SpO2 89.00% (min.) 33.6 2.4 9.5 4.8 0.0 Mean NREM SpO2 (%) 90 87 87 90 91 Mean REM SpO2 (%) N/A N/A N/A N/A N/A Mean Sleep SpO2 (%) 90 87 87 90 91 Min NREM SpO2 (%) 75 80 77 81 90 Min REM SpO2 (%) N/A N/A N/A N/A N/A Position Supine (min.) 19.8 0.0 0.0 0.0 0.0 Position Non-supine (min.) 96.2 4.2 16.8 76.3 107.8 LM Index Sleep 79.7 187.1 75.0 101.5 70.2 LM Index NREM 79.7 187.1 75.0 101.5 70.2 LM Index REM N/A N/A N/A N/A N/A Mean Heart Rate (bpm) 111 112 113 113 108 Min Heart Rate (bpm) 99 110 109 106 102 Bus Matron Comments and User Events: Comment/Event Page Number Time of Day PT CALS 246 10:46:30 PM Look Right 246 10:46:44 PM Look Up 246 10:46:46 PM Look Up 247 10:46:59 PM Look Down 247 10:47:03 PM Eyes Closed 247 10:47:09 PM Bite down on Jaw 248 10:47:29 PM Flex foot 248 10:47:34 PM Hold Breath 248 10:47:42 PM Snore sound 249 10:48:02 PM HER O2 HAS BEEN UNDER 89% FOR OVER 5 MIN. SHE ALSO HAS BEEN CONSISTENTLY UNDER 85%. SHE IS NORMALLY ON O2 AT NIGHT. STARTING WITH 1 LPM 335 11:31:17 PM SHE HAS BEEN ASLEEP FOR OVER 2 HOURS AND HER AHI IS ABOVE 40. GOING TO START CPAP AT THIS TIME. O2 IS TURNED OFF AND CPAP IS STARTING ON ROOM AIR 592 1:39:54 AM PT CALS 1038 5:22:35 AM Look Right 1038 5:22:42 AM Look Left 1038 5:22:46 AM Look Down 1038 5:22:51 AM Look Down 1038 5:22:55 AM Eyes Closed 1039 5:23:00 AM Bite down on Jaw 1039 5:23:06 AM Flex foot 1039 5:23:13 AM Snore sound 1039 5:23:24 AM
--- NOTE | 2017-05-10 21:14 | POLYSOMNOGRAPH REPORT ---
SLEEP STUDY REPORT CLINICAL DATA: The patient is a 56-year-old female who has a BMI of 46.43. She was hospitalized in February with respiratory failure. She had poor arterial blood gases with high pCO2. She was discharged with a BiPAP with a diagnosis of respiratory failure. Sleep apnea was suspected. She has been on BiPAP at home. Her insurance; however, is insisting upon a sleep study being done. This is an in-lab split sleep study. She has symptoms including snoring and excessive daytime somnolence. She has an [place] score of 20. SLEEP ARCHITECTURE: During the diagnostic portion of the study, the sleep period time was 133.5 minutes and the total sleep time was 120.5 minutes. The sleep efficiency was moderately reduced to 71%. The sleep latency was prolonged to 36 minutes. Sleep consisted of stage N1 19%, stage N2 77%, stage N3 4%, stage, REM 0%. During the therapeutic portion of the study, the patient was treated with nasal CPAP. The sleep period time was 207 minutes. The total sleep time was 205 minutes. The sleep efficiency was 96%. The sleep latency was 2 minutes. Sleep consisted of stage N1 3% and stage N2 97%, stage N3 0% and stage REM 0%. AROUSAL DATA: During the diagnostic portion of the study, the patient had 89 arousals including 46 apnea arousals, 31 hypopnea arousals, 3 snoring arousals, 2 PLM arousals, and 7 nonspecific arousals. The arousal index was elevated at 44.3. During the therapeutic portion of the study, the patient had a total of 17 arousals including 13 hypopnea arousals, 1 snoring arousal, and 1 nonspecific arousal. The arousal index was 5.0. PERIODIC LIMB MOVEMENTS DATA: During the diagnostic portion of the study, the patient had a total of 39 periodic limb movements for an index of 19.4. There were 2 arousals, associated with the leg movements for a PLM arousal index of 1.0. During the therapeutic portion of the study, the patient had 240 periodic limb movements for a PLM index of 70.2. There were no arousals associated with limb movements. ELECTROCARDIOGRAM: The underlying cardiac rhythm was sinus tachycardia. The heart rates averaged 111 beats per minute during the diagnostic portion and 110 beats per minute during the therapeutic portion. RESPIRATORY DATA: During the diagnostic portion of the study, the patient had 69 obstructive apneas, 74 hypopneas, and an apnea hypopnea index elevated at 71.2. The hypopneas were scored by the 4% desaturation rule. There was 1 RERA. During the treatment portion of the study, the patient had a total of 35 hypopneas for an apnea-hypopnea index of 10.2. There was also 1 RERA. At the final pressure of 10 cm, the patient had an apnea-hypopnea index of 0 as there was no respiratory events. She was at this CPAP level for 112 minutes. OXIMETRY DATA: The patient had during the diagnostic portion an average saturation of 90%. The minimum saturation was 75%. She had a total of 33.9 minutes with saturations less than 88%. During the therapeutic portion of the study, the patient's mean saturation was 91%. The minimum saturation was 77%. There was 12.3 minutes with saturations less than 88%. It should be noted that oxygen was started at approximately 11:30 p.m. During the CPAP portion of the study, she was on CPAP but at room air. HEARING AID REPAIR TECHNICIAN COMMENTS: The patient slept in the right, left, and supine positions. PLMs were noted. No bruxism noted. Snoring was noted and scored as a 4 on a scale of 1 through 5. At 1:45 a.m. she met specific split night criteria. CPAP was initiated on room air and at 4 cm of water and up titrated to a level of 10 cm with C-Flex 2. This nearly eliminated all respiratory events. Snoring still continued to occur. She did not obtain REM sleep. An AirFit F20 was used during the titration. IMPRESSION: 1. Obstructive sleep apnea - severe. 2. Periodic limb movement disorder. COMMENTS: A split study was done because the patient had very severe sleep apnea associated with severe hypoxia. She was treated with nasal CPAP up to a final pressure of 10 cm. At that level, she had no apneas at all. Her oxygenation also was normal on the CPAP at the final pressure. She was noted to have sinus tachycardia throughout the night. The reason for the increased heart rates is not clear. She had frequent limb movements, particularly during the therapeutic portion of the study. This is not unexpected with resolution of sleep-disordered breathing. RECOMMENDATIONS: The patient has been utilizing auto BiPAP. During this study, she was titrated on CPAP up to a pressure of 10 cm and she seemed to do well. Discussions will be held with the patient to determine with which device she felt the most comfortable. She will then need followup compliance data. If she needs a new mask we will ask her if she was most comfortable with the AirFit F20 or if she would prefer to have her current mask. Await reduction program as advised in light of her elevation of body mass index at 46.43.
== END | disposition home or self-care (01) ==
LOC: C.NEUR 20:00
PROVIDERS: ATTEND Physician Assistant Medical
DX: G47.34 Idiopathic sleep related nonobstructive alveolar hypoventilation (principal)

== ENCOUNTER → 2017-06-01 | Outpatient (CLI) | payer OTHER ==
[2017-06-01 13:42] LABS: BLOOD UREA NITROGEN 21 mg/dl (7-18); CREATININE 0.73 mg/dl (0.60-1.20)
== END | disposition home or self-care (01) ==
LOC: C.LAB 12:50
PROVIDERS: ATTEND Nurse Practitioner
DX: G47.34 Idiopathic sleep related nonobstructive alveolar hypoventilation (principal)

== ENCOUNTER → 2017-06-06 | Outpatient (CLI) | payer OTHER ==
[~2017-06-06] MED LIST changes: +OPTIRAY 320 IV PRN
--- NOTE | 2017-06-06 14:56 | DIAGNOSTIC IMAGING REPORT ---
(CHEST) THORAX WITH CT DOSE: 935.36 mGycm HISTORY: Hypoxia G47.34 Nocturnal [id number] TECHNIQUE: Multiaxial CT images of the chest were performed following the intravenous administration of contrast. COMPARISON: 03/06/2017 FINDINGS: The lungs are now considered clear. No focal infiltrative or nodular pathology. Minimal atelectatic change peripheral aspect right and to a lesser extent left lung base. Several small mediastinal as well as axillary nodes diminished in prominence in the prior study. Significant adenopathy is not felt to be present currently. IMPRESSION: Negative study of the chest. This examination is improved as compared to the prior study The above report was generated using voice recognition software. It may contain grammatical, syntax or spelling errors. Electronically signed by: Yao Sánchez M.D. 06/06/2017 2:54 PM Dictated Date/Time: 06/06/2017 2:52 PM
== END | disposition home or self-care (01) ==
LOC: C.CTS 13:49
PROVIDERS: ATTEND Physician Assistant Medical
DX: G47.34 Idiopathic sleep related nonobstructive alveolar hypoventilation (principal)

== ENCOUNTER 2017-12-20 02:07 | Emergency (ER) | payer OTHER ==
[~2017-12-20 02:07] MED LIST changes: -OPTIRAY 320 IV PRN
[2017-12-20 03:59] LABS: HEMATOCRIT 38.9 % (37-47); HEMOGLOBIN 12.9 g/dL (12.0-16.0); MEAN CELL VOLUME 84.6 fL (80-100); MEAN CORPUSCULAR HGB CONC 33.2 g/dl (32-36); MEAN PLATELET VOLUME 9.4 fL (7.4-10.4); PLATELET COUNT 374 K/uL (130-400); RED CELL DISTRIBUTION WIDTH CV 14.7 % (11.5-14.5); RED CELL DISTRIBUTION WIDTH SD 45.3 fL (36.4-46.3); WHITE BLOOD COUNT 10.08 K/uL (4.8-10.8)
[2017-12-20 04:26] LABS: ALBUMIN 3.5 gm/dl (3.4-5.0); ALT/SGPT 29 U/L (12-78); AST/SGOT 20 U/L (15-37); BLOOD UREA NITROGEN 15 mg/dl (7-18); CALCIUM 9.2 mg/dl (8.5-10.1); CARBON DIOXIDE 28 mmol/L (21-32); CREATININE 0.98 mg/dl (0.60-1.20); GLUCOSE 176 mg/dl (70-99); POTASSIUM 3.7 mmol/L (3.5-5.1); SODIUM 138 mmol/L (136-145)
[2017-12-20 04:37] LABS: ALKALINE PHOSPHATASE 108 U/L (45-117); TOTAL PROTEIN 7.1 gm/dl (6.4-8.2)
[2017-12-20] MEDS ORDERED: INSU70IN2 SC ×2 (04:37)
[2017-12-20] MEDS ORDERED: ACET-1256 PO (04:38)
[2017-12-20] MEDS ORDERED: CLON1TAB3 PO (04:38)
[2017-12-20] MEDS ORDERED: PRAZ2CAP3 PO (04:40)
[2017-12-20] MEDS ORDERED: BENZ1CAP90 PO (04:40)
[2017-12-20] MEDS ORDERED: LAMO100T16 PO (04:40)
[2017-12-20] MEDS ORDERED: ONDA4TAB46 PO (04:40)
[2017-12-20] MEDS ORDERED: ACT15 PO (04:42)
[2017-12-20] MEDS ORDERED: PRLSR20 PO (04:45)
[2017-12-20] MEDS ORDERED: ERGO500037 PO (04:45)
[2017-12-20] MEDS ORDERED: DILT180C50 PO (04:45)
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
[2017-12-20] MEDS ORDERED: LORAZEPAM 2 MG/ML 1 ML VIAL IM STA (05:13)
[2017-12-20 12:09] VITALS: BP 170/85; PULSE 95; TEMP 36.7; O2SAT 92
== END 2017-12-20 12:30 ==
LOC: C.ED 02:57 → C.EDA 12:30
DX: R45.850 Homicidal ideations (principal); F60.0 Paranoid personality disorder; F41.9 Anxiety disorder, unspecified; E11.9 Type 2 diabetes mellitus without complications; Z79.899 Other long term (current) drug therapy

== ENCOUNTER 2018-01-05 11:24 | Inpatient (IN) | payer OTHER ==
[~2018-01-05] VITALS: Ht 157.5 cm; Wt 116.9 kg
[~2018-01-05 11:24] MED LIST changes: +ACET-1256 PO; +ACT15 PO; -ACT30 PO; -ALBU18002 INH; -ARIP30TA3 PO; +BENZ1CAP90 PO; +CLON1TAB3 PO; -CLON2TAB3 PO; -CYCL5TAB PO; -CYPR4TAB31 PO; +DILT180C50 PO; -DULO-24 PO; +ERGO500037 PO; -GLC500 PO; -IPRASOL4 INH; +LAMO100T16 PO; -LAMO25TA PO; -LSN20 PO; +ONDA4TAB46 PO; +PRAZ2CAP3 PO; -PRED10TA PO; +PRLSR20 PO; -QVRINH80 INH
[2018-01-05] MEDS ORDERED: LTHSR/300 PO ×2 (12:31→16:30)
[2018-01-05] MEDS ORDERED: RISP0.5T9 PO (12:31)
[2018-01-05] MEDS ORDERED: ALBUT/IPRATROP 3MG/0.5MG NEB 3 ML VIAL INH ONE (12:45)
--- NOTE | 2018-01-05 12:49 | EMERGENCY ROOM VISIT NOTE ---
History Report prepared by Trevor: Stanton Torres Under the Supervision of: Dr. Antione Yeager M.D. First contact with patient: 12:36 Chief Complaint: SHORTNESS OF BREATH Stated Complaint: RESPIRATORY Nursing Triage Summary: Pt brought ALS from [facility], was recently admitted to the [facility] and has since developed a cough, fever, chills, n/v/d. Pt was 80% on RA at [facility] today, given albuterol tx and 125 mg of solumedrol IV by EMS, started on O2 @ 4 L/min via n.c. and sats up to 96%. Pt reports having productive cough with clear sputum for about 5 days, states that it tellez when she coughs and feels like when she's had pneumonia in the past. History of Present Illness The patient is a 57 year old female who presents to the Emergency Room for evaluation of shortenss of breath. History of smoking/copd. Notes recent admission to [place] and now living in [facility]. She has been having worsening shob over last 5 days. Associated cough, fevers, chills, nausea, vomiting, diarrhea. Called EMS this am secondary to severe SHOB. O2 80% for EMS on RA on arrival. Given albuterol, solumedrol en route. O2 improved to 96 % on NC O2 4 L. No syncope, chest pain, syncope, leg swelling, calf pain. Simlar to previous COPD exacerbations. She used to use 2L NC but stopped that a few weeks ago by PCP. History of pneumonia with admission a few months ago. Nothing makes better. Exertion makes worse. Source of History: patient Onset: 5 days ago Position: other (global) Timing: constant Associated Symptoms: + fevers, + chills, + cough, + SOB, + nausea, + vomiting, + diarrhea Note: The patient denies lower leg swelling and syncope. Review of Systems See HPI for pertinent positives & negatives. A total of 10 systems reviewed and were otherwise negative. Past Medical & Surgical Medical Problems: (1) Chronic hypoxemic respiratory failure (2) Depression (3) Fibromyalgia (4) History of diabetes mellitus (5) HTN (hypertension) (6) Obesity hypoventilation syndrome (7) PTSD (post-traumatic stress disorder) Surgical Problems: (1) Hx of laparoscopy Social History Smoking Status: Former Smoker Drug Use: none Marital Status: Current/Historical Medications Scheduled Diltiazem Hcl Coated Beads (Cartia Xt), 180 MG PO DAILY Ergocalciferol (Vitamin D 14525 Unit), 50,000 UNIT PO WK Insulin Isophan/Regular (Novolin 70/30), 80 UNITS SC QAM Insulin Isophan/Regular (Novolin 70/30), 65 UNITS SC QPM Lisinopril (Lisinopril), 1 TAB PO DAILY Eudora Carbonate (Eudora Carbonate), 1 CAP PO DAILY Eudora Carbonate (Eudora Carbonate), 600 MG PO PM Metformin Hcl (Glucophage), 1 TAB PO BID Omeprazole (Prilosec), 20 MG PO DAILY Perphenazine (Trilafon), 1 TAB PO BID Perphenazine (Trilafon), 1 TAB PO BID Pioglitazone (Actos), 15 MG PO DAILY Pravastatin (Pravachol ), 40 MG PO DAILY Prazosin Hcl (Prazosin), 2 MG PO HS Scheduled PRN Acetaminophen (Tylenol), 1,000 MG PO Q6 PRN for Pain or Fever Benzonatate (Tessalon Perles), 200 MG PO TID PRN for Cough Clonazepam (Klonopin), 2 MG PO HS PRN for Anxiety/Insomnia Ondansetron Hcl (Zofran), 4 MG PO Q8 PRN for Nausea Allergies Coded Allergies: Amoxicillin (Verified Allergy, Unknown, DIARRHEA, HIVES, 01/05/18) Clavulanic Acid (Verified Allergy, Unknown, DIARRHEA, HIVES, 01/05/18) Codeine (Verified Allergy, Unknown, HIVES, 01/05/18) Morphine (Verified Allergy, Unknown, hives, 01/05/18) Penicillins (Verified Allergy, Unknown, HIVES, 01/05/18) Physical Exam Vital Signs Date Time Temp Pulse Resp B/P (MAP) Pulse Ox O2 Delivery O2 Flow Rate FiO2 01/05/18 14:00 85 20 152/78 95 Room Air 01/05/18 13:40 88 18 96 Nasal Cannula 5.0 01/05/18 12:21 80 20 140/87 93 Nasal Cannula 4.0 01/05/18 12:07 81 01/05/18 11:45 82 20 93 Nasal Cannula 4.0 01/05/18 11:37 37.1 80 20 129/71 84 Room Air 01/05/18 11:37 84 Room Air Physical Exam GENERAL: Patient is tired appearing and in mild distress. HEENT: No acute trauma, normocephalic atraumatic, mucous membranes moist, no nasal congestion, no scleral icterus. NECK: No stridor, no adenopathy, no meningismus, trachea is midline. LUNGS: Diffuse wheezing and tight lungs sounds throughout with dyspnea and tachypnea. Clear to auscultation and equal bilaterally. No rhonchi. HEART: Regular rate and rhythm. No murmurs, rubs, gallops appreciated. ABDOMEN: Soft, nontender, bowel sounds positive, no masses appreciated, no peritonitis. BACK: No midline tenderness, no CVA tenderness EXTREMITIES: Normal motion all extremities, no cyanosis, no edema. NEUROLOGIC: Alert and oriented, no acute motor or sensory deficits, no focal weakness, cranial nerves grossly intact. SKIN: No rash, no jaundice, no diaphoresis. Medical Decision & Procedures ER Provider Diagnostic Interpretation: Radiology results and stated below per my review and radiologist interpretation: CHEST ONE VIEW PORTABLE CLINICAL HISTORY: 57 years-old Female presenting with SHOB. TECHNIQUE: Portable upright AP view of the chest was obtained. COMPARISON: 03/06/2017. FINDINGS: Image quality is limited by patient body habitus. Atherosclerosis of aortic arch. Cardiac silhouette enlarged. Mild bronchial wall thickening and pulmonary vascular prominence. Lungs and pleural spaces clear. Degenerative changes of the thoracic spine. IMPRESSION: 1. Cardiomegaly. Suggestion of mild congestive changes/volume overload without richard pulmonary edema. Electronically signed by: Danielito Gil M.D. 01/05/2018 1:08 PM Dictated Date/Time: 01/05/2018 1:07 PM Laboratory Results Test 01/05/18 12:43 01/05/18 13:02 01/05/18 13:17 01/05/18 13:31 Influenza Type A (RT-PCR) Neg for Influ A (NEG) Influenza Type B (RT-PCR) Neg for Influ B (NEG) Prothrombin Time 10.3 SECONDS (9.0-12.0) Prothromb Time International Ratio 1.0 (0.9-1.1) Activated Partial Thromboplast Time 27.7 SECONDS (21.0-31.0) Partial Thromboplastin Ratio 1.1 Troponin I < 0.021 ng/ml (0-0.045) Eudora Level 1.0 mMOL/L (0.6-1.2) Bedside Lactic Acid Venous 0.89 mmol/L (0.90-1.70) Venous Blood pH 7.40 (7.36-7.41) Venous Blood Partial Pressure CO2 49 mmHg (38.0-50.0) Venous Blood Partial Pressure O2 68 mmHg Venous Blood HCO3 29 mmol/L Venous Blood Oxygen Saturation 92.7 % Venous Blood Base Excess 3.7 mEq/L Test 01/05/18 13:45 01/05/18 14:13 Influenza Type A Antigen Neg for Influ A (NEG) Influenza Type B Antigen Neg for Influ B (NEG) Bedside Troponin I < 0.030 ng/ml (0-0.045) Laboratory results as reviewed by me. Medications Administered Medications (Trade) Dose Ordered Sig/Uriel Route Start Time Stop Time Status Last Admin Dose Admin Albuterol/ Ipratropium (Duoneb) 12 ml ONE ONCE INH 01/05/18 12:45 01/05/18 12:46 DC 01/05/18 12:45 12 ML ECG Per My Interpretation Indication: SOB/dyspnea Rate (beats per minute): 79 Rhythm: normal sinus Findings: no acute ischemic change, no ectopy Change: EKG: Electrocardiogram per my interpretation. ED Course 1236: The patient was evaluated in room B11B. A complete history and physical exam was performed. 1439: I discussed the patient's case with Dorita Roberts PA-C. The patient will be evaluated for further treatment and disposition. 1445: Upon reevaluation, the patient is doing well. Discussed results and treatment plan with the patient. She verbalized understanding and agreement with the treatment plan. The patient will be evaluated for further management. Medical Decision Differential: Infectious, Reactive Airway Disease, Pneumonia, Pneumothorax, COPD , CHF, ACS, Pulmonary Embolism, MSK, GI, Dissection, amongst other etiologies entertained. 57 yr old female arrives with complaint of shortness of breath. Called EMS due to SHOB and found to be significantly hypoxic. She is in respiratory distress thought starting to turn around once Hour Neb started. Given Solumedrol by EMS. CXR with read as congestive findings though I feel this is more obesity related as no significant leg swelling. Was recently admitted to [place] but I do not feel she has PE given she has clear other cause of her symptoms. Vitals stabilized. With oxygen requirement, such a bad lung exam and her history I feel she will need to come in to hospital. Fortunately able to turn her around with hour neb without needing Bipap. Frequent close monitoring of patient throughout ED stay. No evidence pneumonia but with her COPD seems reasonable empirically treat with ABX. No evidence of sepsis, ACS, dissection at this time. Medication Reconcilliation Current Medication List: was personally reviewed by me Blood Pressure Screening Patient's blood pressure: Normal blood pressure Blood pressure disposition: Did not require urgent referral Consults Time Called: 1439 Consulting Physician: Dorita Roberts PA-C Returned Call: [phone] Discussed the patient's case. The patient will be evaluated for further treatment and disposition. Impression Primary Impression: Acute respiratory failure with hypoxia Additional Impression: COPD exacerbation Critical Care I have personally spent greater than 35 minutes of critical care time in the direct management of this patient. This was a life/limb threatening event. This includes time spent evaluating patient, direct bedside care, chart review, placing orders, interpretation of diagnostic studies, discussion with consultants, patient, and family members, as well as other required patient management activities. This 35 minutes is in excess of all separately billable procedures. Scribe Attestation The scribe's documentation has been prepared under my direction and personally reviewed by me in its entirety. I confirm that the note above accurately reflects all work, treatment, procedures, and medical decision making performed by me. Departure Information Referrals No Doctor, Assigned (PCP) Patient Instructions My [facility] Problem Qualifiers
--- NOTE | 2018-01-05 13:09 | DIAGNOSTIC IMAGING REPORT ---
CHEST ONE VIEW PORTABLE CLINICAL HISTORY: 57 years-old Female presenting with SHOB. TECHNIQUE: Portable upright AP view of the chest was obtained. COMPARISON: 03/06/2017. FINDINGS: Image quality is limited by patient body habitus. Atherosclerosis of aortic arch. Cardiac silhouette enlarged. Mild bronchial wall thickening and pulmonary vascular prominence. Lungs and pleural spaces clear. Degenerative changes of the thoracic spine. IMPRESSION: 1. Cardiomegaly. Suggestion of mild congestive changes/volume overload without richard pulmonary edema. Electronically signed by: Danielito Gil M.D. 01/05/2018 1:08 PM Dictated Date/Time: 01/05/2018 1:07 PM
[2018-01-05 13:19] LABS: BASO % 0.3 %; BASO ABS # 0.04 K/uL (0-0.2); EOS % 0.6 %; EOS ABS # 0.08 K/uL (0-0.5); HEMATOCRIT 38.7 % (37-47); HEMOGLOBIN 12.8 g/dL (12.0-16.0); IG# 0.07 K/uL (0.00-0.02); LYMPH ABS # 0.81 K/uL (1.2-3.4); MEAN CELL VOLUME 84.5 fL (80-100); MEAN CORPUSCULAR HEMOGLOBIN 27.9 pg (25-34); MEAN CORPUSCULAR HGB CONC 33.1 g/dl (32-36); MEAN PLATELET VOLUME 9.5 fL (7.4-10.4); MONO % 2.5 %; MONO ABS # 0.34 K/uL (0.11-0.59); NEUT % 90.1 %; NEUT ABS # 12.18 K/uL (1.4-6.5); PLATELET COUNT 377 K/uL (130-400); RED CELL DISTRIBUTION WIDTH CV 14.7 % (11.5-14.5); RED CELL DISTRIBUTION WIDTH SD 45.2 fL (36.4-46.3); WHITE BLOOD COUNT 13.52 K/uL (4.8-10.8)
[2018-01-05 13:32] LABS: BLOOD UREA NITROGEN 9 mg/dl (7-18); CALCIUM 9.4 mg/dl (8.5-10.1); CARBON DIOXIDE 29 mmol/L (21-32); CREATININE 0.83 mg/dl (0.60-1.20); GLUCOSE 291 mg/dl (70-99); POTASSIUM 4.3 mmol/L (3.5-5.1); SODIUM 130 mmol/L (136-145)
[2018-01-05 13:40] VITALS: PULSE 88; O2SAT 96
[2018-01-05 14:21] LABS: INFLUENZA B ANTIGEN Neg for Influ B (NEG)
[2018-01-05] MEDS ORDERED: DOXYCYCLINE IV 100 MG in DEXTROSE 5% 100ML 100 ML IV SCH (14:45)
[2018-01-05] MEDS ORDERED: POLYETHYLENE (MIRALAX) 17 GM PACK PO PRN (15:30)
[2018-01-05] MEDS ORDERED: ACETAMINOPHEN 325 MG TAB PO PRN (15:30)
[2018-01-05] MEDS ORDERED: NITROGLYCERIN 0.4 MG SL PER TAB CHARGE SL PRN (15:30)
[2018-01-05] MEDS ORDERED: ONDANSETRON INJ 2 MG/ML 2 ML VIAL IV PRN (15:30)
[2018-01-05] MEDS: ALBUT/IPRATROP 3MG/0.5MG NEB 3 ML VIAL INH SCH ×2 (16:00→19:25)
[2018-01-05] MEDS ORDERED: GLUCOSE 10 TABS/TUBE PO PRN (16:00)
[2018-01-05] MEDS ORDERED: GLUCAGON FOR INJ 1 MG VIAL SQ PRN (16:00)
[2018-01-05] MEDS ORDERED: ALBUT/IPRATROP 3MG/0.5MG NEB 3 ML VIAL INH PRN (16:00)
[2018-01-05] MEDS ORDERED: DEXTROSE 50% 50 ML SYR IV PRN (16:00)
[2018-01-05] MEDS ORDERED: GLUCOSE 40% GEL 15 GM TUBE PO PRN (16:00)
[2018-01-05 16:03] LABS: PTT PATIENT 27.7 SECONDS (21.0-31.0)
[2018-01-05] MEDS ORDERED: PHARMACY GLYCEMIC MGMT CONSULT SCH (16:26)
[2018-01-05] MEDS ORDERED: LSN20 PO (16:30)
[2018-01-05] MEDS ORDERED: PERP1TAB5 PO (16:30)
[2018-01-05] MEDS ORDERED: LTH300C PO (16:30)
[2018-01-05] MEDS ORDERED: PERP1TAB6 PO (16:30)
[2018-01-05] MEDS ORDERED: METF1000 PO (16:30)
--- NOTE | 2018-01-05 16:47 | Pharmacy Progress Note ---
Glycemic Control Intl Consult Date of Service Jan 05, 2018. Scope Glycemic Pharmacist consulted by Terrence Roberts PAC on 01/05/18 for glycemic control and to write orders per formerly [facility] inpatient glycemic control protocol Objective Weight (Kilograms): 113.600 Accuchecks BSG (last 24hrs): Test 01/05/18 13:02 Random Glucose 291 mg/dl (70-99) Laboratory Data (last 24hrs) Test 01/05/18 13:02 Anion Gap 6.0 mmol/L BUN/Creatinine Ratio 10.5 Blood Urea Nitrogen 9 mg/dl Creatinine 0.83 mg/dl Potassium Level 4.3 mmol/L Sodium Level 130 mmol/L White Blood Count 13.52 K/uL Red Blood Count 4.58 M/uL Hemoglobin 12.8 g/dL Hematocrit 38.7 % Mean Corpuscular Volume 84.5 fL Mean Corpuscular Hemoglobin 27.9 pg Mean Corpuscular Hemoglobin Concent 33.1 g/dl Platelet Count 377 K/uL Mean Platelet Volume 9.5 fL Neutrophils (%) (Auto) 90.1 % Lymphocytes (%) (Auto) 6.0 % Monocytes (%) (Auto) 2.5 % Eosinophils (%) (Auto) 0.6 % Basophils (%) (Auto) 0.3 % Neutrophils # (Auto) 12.18 K/uL Lymphocytes # (Auto) 0.81 K/uL Monocytes # (Auto) 0.34 K/uL Eosinophils # (Auto) 0.08 K/uL Basophils # (Auto) 0.04 K/uL Recent Pertinent Medications Outpatient Anti-diabetic Regimen: * Novolin 70/30 insulin 80 units Q AM + 65 units Q PM * Pioglitazone 15mg PO daily * A1c = ? % The patient is currently receiving: * Basal insulin: Lantus 30 units every 12 hours * Correctional Insulin: Novolog Correction per scale ACHS Goal Range: Low 110 mg/dL - High 140 mg/dL Correction Factor: 12 mg/dL/unit * Prandial insulin: Per carb ratio of 1 unit per 4 grams CHO consumed * Oral Agents: None currently Risk Factors for Insulin Resistance: * Steroids: Prednisone 40mg PO daily * Infection: receiving Doxycycline IV for COPD exacerbation * Diet: ordered T2DM diet Assessment & Plan ASSESSMENT: 01/05/18 * Type 2 diabetic admitted today for COPD exacerbation * Patient appears to be relatively insulin resistant given reported outpt doses of insulin ~145 units/day * Glu on initial labs 291 and patient will be receiving steroids this admission * Will begin a basal/bolus regimen using a "stressed" home dosage of insulin. Lantus + Novolog will be used instead of 70/30 insulin given greater flexibility for dose adjustments and less risk of hypoglycemia in the inpatient setting. PLAN FOR INPATIENT GLYCEMIC CONTROL: * Lantus 42 units SQ BID - 1st dose with dinner Accu-chek * Novolog SQ ACHS and at 0200 tonight * Changing correction factor to 10 mg/dl/unit * Continuing carb ratio of 1 unit per 4 grams CHO consumed * Continuing goal range of Low 110 mg/dL - High 140 mg/dL * Please note that the plan above was derived based on current level of insulin resistance and hospital stress. These recommendations are appropriate for inpatient admission only. Plan of care upon discharge will need to be reassessed to avoid potential outpatient hypo/hyperglycemia. Thank you.
[2018-01-05 16:49] VITALS: BP 138/75; PULSE 85; TEMP 37.3; O2SAT 93; BMI 45.7
[2018-01-05] MEDS ORDERED: INSULIN HUMAN REGULAR PER UNIT 8 UNITS in SYRINGE 7.92 ML IV SCH (17:15)
[2018-01-05] MEDS: INSULIN GLARGINE SOLOSTAR 100 UNITS/ML 3 ML PEN SC SCH (17:34)
[2018-01-05] MEDS: INSULIN ASPART 100 UNITS/ML 3 ML PEN SC SCH ×2 (17:37→21:03)
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
[2018-01-05 18:52] LABS: INFLUENZA A PCR Neg for Influ A (NEG); INFLUENZA B PCR Neg for Influ B (NEG)
--- NOTE | 2018-01-05 18:56 | History and Physical ---
History & Physical Date & Time of Service: Jan 05, 2018 at 18:06 Chief Complaint: Acute On Chronic Respiratory Failure W/ Hypoxia Primary Care Physician: Melanie Leavitt D.O. History of Present Illness Source: patient, clinic records, hospital records Pt is 57 y/o F with PMH chronic hypoxemic respiratory failure, obesity hypoventilation syndrome, DM II, depression, fibromyalgia presented to ER from PCP office with cough, hypoxia with O2 sat in 80's. She was given solumedrol 125mg and neb treatment en route and pt reports feels improved. Her sat's 93% on 4L O2. Pt reports past 5 days with nasal congestion, cough productive clear sputum and feeling "burning in lungs with coughing" and feeling SOB with exertion. Pt states was around others with URI symptoms. Pt follows with Dr Keene. She reports was on continuous O2 at 2L during the day and 3L HS. She states was weaned off of oxygen approx 5 weeks ago. Unclear if pt has been using bipap or cpap HS, pt unsure which and is not disclosing if she has been using it recently. Pt states she thought she was doing with her breathing until the cough started. Pt was d/c from the [facility] 01/04/18 for reported depression and suicidal ideations. Pt feels symptoms improved and denies suicidal ideations currently. Was able to call the [facility] and pt was discharged on Trilafon and Mansura and Klonopin HS. Pt admits hasn't been using her insulin, she doesn't think she used it last night and didn't use it today. Pt states that she was having bloody stools a couple of weeks ago for 2 days which has since resolved. States was having nausea with eating and decreased appetite. Pt noted to be eating sandwich in ER. She states had diarrhea couple weeks ago which she reports has improved. Pt states is not very ambulatory, she states did walk around the [facility] facility some over the past week. Denies any extremity edema. Denies known fever/chills, diaphoresis, melena, KOROMA, dizziness, syncope, vision changes, neck pain, orthopnea, palpitations, sore throat, choking, otalgia, abdominal pain, rashes, urinary symptoms. Past Medical/Surgical History Medical Problems: (1) Chronic hypoxemic respiratory failure Status: Chronic (2) Depression Status: Chronic (3) Fibromyalgia Status: Chronic (4) History of diabetes mellitus Status: Chronic (5) HTN (hypertension) Status: Chronic (6) Obesity hypoventilation syndrome Status: Chronic (7) PTSD (post-traumatic stress disorder) Status: Chronic Surgical Problems: (1) Hx of laparoscopy Permanent Comment: endometriosis Status: Resolved Family History Depression Hypertension Social History Smoking Status: Former Smoker Smokeless Tobacco Use: No Alcohol Use: none Drug Use: none Marital Status: Allergies Coded Allergies: Amoxicillin (Verified Allergy, Unknown, DIARRHEA, HIVES, 01/05/18) Clavulanic Acid (Verified Allergy, Unknown, DIARRHEA, HIVES, 01/05/18) Codeine (Verified Allergy, Unknown, HIVES, 01/05/18) Morphine (Verified Allergy, Unknown, hives, 01/05/18) Penicillins (Verified Allergy, Unknown, HIVES, 01/05/18) Home Medications Scheduled Diltiazem Hcl Coated Beads (Cartia Xt), 180 MG PO DAILY Ergocalciferol (Vitamin D 43477 Unit), 50,000 UNIT PO WK Insulin Isophan/Regular (Novolin 70/30), 80 UNITS SC QAM Insulin Isophan/Regular (Novolin 70/30), 65 UNITS SC QPM Lisinopril (Lisinopril), 1 TAB PO DAILY [place]ura Carbonate ([place]ura Carbonate), 1 CAP PO DAILY [place] Carbonate ([place] Carbonate), 600 MG PO PM Metformin Hcl (Glucophage), 1 TAB PO BID Omeprazole (Prilosec), 20 MG PO DAILY Perphenazine (Trilafon), 1 TAB PO BID Perphenazine (Trilafon), 1 TAB PO BID Pioglitazone (Actos), 15 MG PO DAILY Pravastatin (Pravachol ), 40 MG PO DAILY Prazosin Hcl (Prazosin), 2 MG PO HS Scheduled PRN Acetaminophen (Tylenol), 1,000 MG PO Q6 PRN for Pain or Fever Benzonatate (Tessalon Perles), 200 MG PO TID PRN for Cough Clonazepam (Klonopin), 2 MG PO HS PRN for Anxiety/Insomnia Ondansetron Hcl (Zofran), 4 MG PO Q8 PRN for Nausea Review of Systems Constitutional: + weight loss (pt states lost several pounds over past couple of weeks as she wasn't eating as much with nausea), No fever, No chills, No sweats Eyes: No eye pain, No redness, No discharge, No diplopia ENT: No hearing loss, No unusual epistaxis, No tinnitus, No trouble swallowing Respiratory: + problem reported (see HPI), No hemoptysis Cardiovascular: No chest pain, No orthopnea, No edema, No palpitations Abdomen: + problem reported (see HPI) Musculoskeletal: No joint pain, No calf pain Genitourinary - Female: No dysuria, No urinary frequency, No urinary urgency, No urinary incontinence, No urinary retention, No hematuria Neurologic: No numbness/tingling, No vertigo Endocrine: No excessive thirst, No excessive urination Hematologic / Lymphatic: No abnormal bleeding/bruising, No clotting problems, No night sweats Integumentary: No rash, No itch Physical Exam Vital Signs Date Time Temp Pulse Resp B/P (MAP) Pulse Ox O2 Delivery O2 Flow Rate FiO2 01/05/18 16:49 37.3 85 24 138/75 93 Nasal Cannula 4.0 01/05/18 16:12 87 20 133/67 93 Nasal Cannula 4.0 01/05/18 14:00 85 20 152/78 95 Room Air 01/05/18 13:40 88 18 96 Nasal Cannula 5.0 01/05/18 12:21 80 20 140/87 93 Nasal Cannula 4.0 01/05/18 12:07 81 01/05/18 11:45 82 20 93 Nasal Cannula 4.0 01/05/18 11:37 37.1 80 20 129/71 84 Room Air 01/05/18 11:37 84 Room Air General Appearance: no apparent distress, + obese, + pertinent finding ( sitting up in bed, on cell phone, just finished eating sandwich) Head: normocephalic, atraumatic Eyes: normal inspection, PERRL, EOMI, sclerae normal ENT: hearing grossly normal, pharynx normal, + pertinent finding (mucous membranes moist) Neck: supple, no JVD, trachea midline Respiratory/Chest: no respiratory distress, no accessory muscle use, + decreased breath sounds (some faint scattered wheezing ) Cardiovascular: regular rate, rhythm, no murmur Abdomen/GI: normal bowel sounds, non tender, soft Extremities/Musculoskelatal: no calf tenderness, normal capillary refill, no pedal edema, non-tender Neurologic/Psych: alert, oriented x 3 Skin: normal color, warm/dry Diagnostics Laboratory Results Results Past 24 Hours Test 01/05/18 12:43 01/05/18 13:02 01/05/18 13:17 01/05/18 13:26 Range/Units White Blood Count 13.52 4.8-10.8 K/uL Red Blood Count 4.58 4.2-5.4 M/uL Hemoglobin 12.8 12.0-16.0 g/dL Hematocrit 38.7 37-47 % Mean Corpuscular Volume 84.5 80-100 fL Mean Corpuscular Hemoglobin 27.9 25-34 pg Mean Corpuscular Hemoglobin Concent 33.1 32-36 g/dl Platelet Count 377 130-400 K/uL Mean Platelet Volume 9.5 7.4-10.4 fL Neutrophils (%) (Auto) 90.1 % Lymphocytes (%) (Auto) 6.0 % Monocytes (%) (Auto) 2.5 % Eosinophils (%) (Auto) 0.6 % Basophils (%) (Auto) 0.3 % Neutrophils # (Auto) 12.18 1.4-6.5 K/uL Lymphocytes # (Auto) 0.81 1.2-3.4 K/uL Monocytes # (Auto) 0.34 0.11-0.59 K/uL Eosinophils # (Auto) 0.08 0-0.5 K/uL Basophils # (Auto) 0.04 0-0.2 K/uL RDW Standard Deviation 45.2 36.4-46.3 fL RDW Coefficient of Variation 14.7 11.5-14.5 % Immature Granulocyte % (Auto) 0.5 % Immature Granulocyte # (Auto) 0.07 0.00-0.02 K/uL Prothrombin Time 10.3 9.0-12.0 SECONDS Prothromb Time International Ratio 1.0 0.9-1.1 Activated Partial Thromboplast Time 27.7 21.0-31.0 SECONDS Partial Thromboplastin Ratio 1.1 Sodium Level 130 136-145 mmol/L Potassium Level 4.3 3.5-5.1 mmol/L Chloride Level 95 98-107 mmol/L Carbon Dioxide Level 29 21-32 mmol/L Anion Gap 6.0 3-11 mmol/L Blood Urea Nitrogen 9 7-18 mg/dl Creatinine 0.83 0.60-1.20 mg/dl Est Creatinine Clear Calc Drug Dose 91.3 ml/min Estimated GFR () 92.0 Estimated GFR (Non- 79.4 BUN/Creatinine Ratio 10.5 10-20 Random Glucose 291 70-99 mg/dl Calcium Level 9.4 8.5-10.1 mg/dl Troponin I < 0.021 0-0.045 ng/ml Mansura Level 1.0 0.6-1.2 mMOL/L Bedside Lactic Acid Venous 0.89 0.90-1.70 mmol/L Bedside Glucose 293 70-90 mg/dl Test 01/05/18 13:31 01/05/18 13:45 01/05/18 14:13 01/05/18 16:47 Range/Units Venous Blood pH 7.40 7.36-7.41 Venous Blood Partial Pressure CO2 49 38.0-50.0 mmHg Venous Blood Partial Pressure O2 68 mmHg Venous Blood HCO3 29 mmol/L Venous Blood Oxygen Saturation 92.7 % Venous Blood Base Excess 3.7 mEq/L Influenza Type A Antigen Neg for Influ A NEG Influenza Type B Antigen Neg for Influ B NEG Bedside Troponin I < 0.030 0-0.045 ng/ml Bedside Glucose 532 70-90 mg/dl Microbiology Results 01/05/18 Blood Culture, Received Pending 01/05/18 Blood Culture, Received Pending Diagnostic Radiology CXR: IMPRESSION: 1. Cardiomegaly. Suggestion of mild congestive changes/volume overload without richard pulmonary edema. EKG EKG: normal sinus rhythm, rate 79 Impression Assessment and Plan ACUTE ON CHRONIC RESPIRATORY FAILURE Pt with hx obesity hypoventilation syndrome. Pt given solumedrol 125mg and neb tx en route from PCP office. Afebrile, P: 80, BP: 152/78, R: 20, O2: 84% on RA up to 93% on 4L. In ER had hour long duoneb and given doxycycline. CXR: bronchial wall thickening and pulmonary vascular prominence. Negative POC lactic acid, negative POC troponin. WBC: 13. negative flu swab - PCR added. pending blood cultures -continue doxycycline for now -prednisone 40mg daily -duoneb -repeat cbc, prp -pulmonology consult HYPERGLYCEMIA/ DM II Gluc: 291. Pt hasn't been using her insulin. -HA1c added -hold oral meds -Novolog sliding scale and Lantus 30U BID, glycemic pharmacy consult HX DEPRESSION/PTSD Pt with recent hospitalization at [facility], was d/c 01/04/18. Called to verify pt's psych meds. Pt denies suicidal ideations at this time. Mansura level WNL -will continue Trilafon, lithium, Klonopin prn and prazosin HS at this time -mental health consult HTN stable -continue lisinopril, diltiazem, GERD -continue PPI DVT Prophylaxis -lovenox SQ Disposition admit tele Full Code Follows with Dr Leavitt for routine care Pt was seen with Dr Glass. See addendum ATTENDING ADDENDUM : pt seen and examined , care co ordinated with Dorita Linn PA-c 57 yo F with past medical hx of chronic respiratory failure , obesity hypoventilation syndrome, Type 2 DM , depression , PTSD presented with ER with worsening of SOB Acute on chronic hypoxemic resp failure : admit to tele 02 supplementation Scheduled Neb tx and IV solu Medrol Pulm consulted , pt been followed with Dr Keene hx of Depression /PTSD /mood disorder : was admitted at [facility] recently denies of any suicidal ideation mentions ongoing anxiety symptom for PTSD Psych eval requested Alyson Glass MD Level of Care Telemetry Advanced Directives Existing Living Will: No Existing Power of Respiratory Care Faculty: No Resuscitation Status FULL RESUSCITATION VTE Prophylaxis VTE Risk Assessment Done? Y/N: Yes Risk Level: Moderate Given or contraindicated: Enoxaparin (Lovenox)SQ Additional Copies To Melanie Leavitt D.O.
[2018-01-05] MEDS: DOXYCYCLINE IV 100 MG in DEXTROSE 5% 100ML 100 ML IV SCH (19:12)
[2018-01-05 20:00] VITALS: O2SAT 93
[2018-01-05] MEDS: PERPHENAZINE 2 MG TAB PO SCH ×3 (20:49→21:16)
[2018-01-05] MEDS: PRAZOSIN HCL 1 MG CAP PO SCH (20:50)
[2018-01-05] MEDS: PRAVASTATIN SOD 40 MG TAB PO SCH (20:50)
[2018-01-05] MEDS: ENOXAPARIN 40 MG/0.4 ML SYR SC SCH (20:51)
[2018-01-05] MEDS: LITHIUM CARBONATE 300 MG TAB PO SCH (20:51)
[2018-01-05] MEDS ORDERED: INSULIN GLARGINE SOLOSTAR 100 UNITS/ML 3 ML PEN SC ONE (21:00)
[2018-01-05] MEDS: CLONAZEPAM 1 MG TAB PO PRN (21:14)
[2018-01-05 23:26] VITALS: BP 132/61; PULSE 87; TEMP 36.7; O2SAT 91
[2018-01-06] VITALS (11 sets, daily range): BP systolic 109–129; BP diastolic 60–74; PULSE 73–87; TEMP 36.3–36.8; O2SAT 91–95
[2018-01-06] MEDS ORDERED: INSULIN ASPART 100 UNITS/ML 3 ML PEN SC SCH (02:00)
[2018-01-06] MEDS: DOXYCYCLINE IV 100 MG in DEXTROSE 5% 100ML 100 ML IV SCH ×2 (04:47→16:17)
[2018-01-06] MEDS: INSULIN ASPART 100 UNITS/ML 3 ML PEN SC SCH ×6 (04:49→21:40)
[2018-01-06 06:19] LABS: BASO % 0.1 %; BASO ABS # 0.01 K/uL (0-0.2); HEMATOCRIT 36.4 % (37-47); HEMOGLOBIN 12.1 g/dL (12.0-16.0); IG# 0.14 K/uL (0.00-0.02); LYMPH % 7.8 %; LYMPH ABS # 1.32 K/uL (1.2-3.4); MEAN CELL VOLUME 84.8 fL (80-100); MEAN CORPUSCULAR HEMOGLOBIN 28.2 pg (25-34); MEAN CORPUSCULAR HGB CONC 33.2 g/dl (32-36); MEAN PLATELET VOLUME 9.8 fL (7.4-10.4); MONO ABS # 0.67 K/uL (0.11-0.59); NEUT % 87.3 %; NEUT ABS # 14.75 K/uL (1.4-6.5); PLATELET COUNT 387 K/uL (130-400); RED CELL DISTRIBUTION WIDTH CV 14.5 % (11.5-14.5); RED CELL DISTRIBUTION WIDTH SD 44.9 fL (36.4-46.3); WHITE BLOOD COUNT 16.89 K/uL (4.8-10.8)
[2018-01-06 06:49] LABS: CREATININE 0.79 mg/dl (0.60-1.20); POTASSIUM 4.1 mmol/L (3.5-5.1)
[2018-01-06] MEDS: ALBUT/IPRATROP 3MG/0.5MG NEB 3 ML VIAL INH SCH ×4 (06:54→19:49)
[2018-01-06 08:10] LABS: HEMOGLOBIN A1C 8.4 % (4.5-5.6)
[2018-01-06] MEDS: PERPHENAZINE 2 MG TAB PO SCH ×3 (09:18→21:28)
[2018-01-06] MEDS: LITHIUM CARBONATE 300 MG TAB PO SCH ×2 (09:19→21:29)
[2018-01-06] MEDS: DILTIAZEM HCL 180 MG CAPCR PO SCH (09:19)
[2018-01-06] MEDS: LISINOPRIL 20 MG TAB PO SCH (09:20)
[2018-01-06] MEDS: BENZONATATE 100MG CAP PO PRN ×2 (09:20→21:26)
[2018-01-06] MEDS: PANTOprazole SOD 40 MG TAB PO SCH (09:20)
[2018-01-06] MEDS: INSULIN GLARGINE SOLOSTAR 100 UNITS/ML 3 ML PEN SC SCH ×2 (09:23→21:41)
[2018-01-06] MEDS ORDERED: GUAIFENESIN SUGAR FREE 100 MG/5 ML UDC PO STA (10:35)
[2018-01-06] MEDS ORDERED: CLONAZEPAM 0.5 MG TAB PO STA (10:41)
--- NOTE | 2018-01-06 10:41 | Pharmacy Progress Note ---
Pharmacy Glycemic Short Note 2 Date of Service Jan 06, 2018. OUTPATIENT ANTIDIABETIC REGIMEN: * Novolin 70/30 insulin 80 units Q AM + 65 units Q PM * Pioglitazone 15mg PO daily * A1c = 8.4% 01/06/18 ASSESSMENT: 01/05/18 * Type 2 diabetic admitted today for COPD exacerbation * Patient appears to be relatively insulin resistant given reported outpt doses of insulin ~145 units/day * Glu on initial labs 291 and patient will be receiving steroids this admission * Will begin a basal/bolus regimen using a "stressed" home dosage of insulin. Lantus + Novolog will be used instead of 70/30 insulin given greater flexibility for dose adjustments and less risk of hypoglycemia in the inpatient setting. 01/06/18 * Ms. Reyes received 185 units of insulin yesterday and BSGs are much improved this AM - fasting of 113 mg/dL * She ended up not receiving any prednisone yesterday, that I could see on the JAN, but will be receiving prednisone 40 mg daily starting this AM * Will plan to continue with the "stressed" basal dose for now but tighten the CR since postprandial BSGs were still elevated yesterday and will receive steroids today PLAN FOR INPATIENT GLYCEMIC CONTROL: * Contine to hold outpatient oral diabetes medications * Basal insulin - continue * Lantus 42 units SQ BID * Bolus insulin * NovoLog per scale ACHS or Q6hrs while NPO * Goal Range: Low 110 mg/dL - High 140 mg/dL * Correction Factor: 10 mg/dL/unit * Nutritional / Prandial insulin per carb ratio of 1 unit per 3 grams CHO consumed
[2018-01-06] MEDS ORDERED: CLONAZEPAM 0.5 MG TAB ONE (11:09)
[2018-01-06] MEDS ORDERED: INSULIN ASPART 100 UNITS/ML 3 ML PEN SC ONE (13:00)
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
--- NOTE | 2018-01-06 16:19 | Progress Note ---
Subjective Date of Service: Jan 06, 2018. Subjective Pt evaluation today including: conversation w/ patient, physical exam, lab review, review of studies, review of inpatient medication list Saw/examined the patient in room 215 +anxious today +shortness of breath and dry cough Problem List Medical Problems: (1) Acute respiratory failure with hypoxia Status: Acute (2) Anxiety Status: Acute (3) COPD (chronic obstructive pulmonary disease) Status: Acute (4) COPD exacerbation Status: Acute (5) Homicidal ideations Status: Acute (6) Hypoxia Status: Acute (7) Paranoid behavior Status: Acute (8) PNA (pneumonia) Status: Acute Review of Systems Constitutional: No fever, No chills, No weakness Respiratory: + cough, + wheezing, + shortness of breath, + dyspnea on exertion , + dyspnea at rest, No sputum, No hemoptysis Cardiac: No chest pain, No edema, No palpitations Abdomen: No pain, No nausea, No vomiting, No diarrhea Heme: No abnormal bleeding/bruising Medications Current Inpatient Medications Medications (Trade) Dose Ordered Sig/Uriel Route Start Time Stop Time Status Last Admin Dose Admin Enoxaparin Sodium (Lovenox Inj) 40 mg Q24H SC 01/05/18 21:00 02/04/18 20:59 01/05/18 20:51 40 MG Acetaminophen (Tylenol Tab) 650 mg Q4H PRN PO 01/05/18 15:30 02/04/18 15:29 01/06/18 09:29 650 MG Ondansetron HCl (Zofran Inj) 4 mg Q6H PRN IV 01/05/18 15:30 02/04/18 15:29 Nitroglycerin (Nitrostat Tab) 0.4 mg UD PRN SL 01/05/18 15:30 02/04/18 15:29 Polyethylene (Miralax Powder Packet) 17 gm DAILY PRN PO 01/05/18 15:30 02/04/18 15:29 Albuterol/ Ipratropium (Duoneb) 3 ml QIDR INH 01/05/18 16:00 02/04/18 15:59 01/06/18 06:54 3 ML Albuterol/ Ipratropium (Duoneb) 3 ml Q2H PRN INH 01/05/18 16:00 02/04/18 15:59 Insulin Glargine (Lantus Solostar Pen) 42 units Q12 SC 01/05/18 17:00 02/04/18 16:59 Future hold 01/06/18 09:23 42 UNITS Insulin Aspart (novoLOG ASPART) SLIDING SCALE If C... ACHS SC 01/05/18 16:00 02/04/18 15:59 01/06/18 09:22 17 UNITS Glucose (Glucose 40% Gel) 15-30 GRAMS 15 GRAMS... UD PRN PO 01/05/18 16:00 02/04/18 15:59 Glucose (Glucose Chew Tab) 4-8 Tablets 4 Tabl... UD PRN PO 01/05/18 16:00 02/04/18 15:59 Dextrose (Dextrose 50% 50ML Syringe) 25-50ML OF 50% DW IV FOR... UD PRN IV 01/05/18 16:00 02/04/18 15:59 Glucagon (Glucagon Inj) 1 mg UD PRN SQ 01/05/18 16:00 02/04/18 15:59 Miscellaneous Information (Consult Glycemic Management Pharmacy) 1 ea UD N/A 01/05/18 16:26 02/04/18 16:25 Prednisone (PredniSONE TAB) 40 mg DAILY PO 01/06/18 09:00 02/05/18 08:59 01/06/18 09:19 40 MG Doxycycline Hyclate 100 mg/ Dextrose 110 ml @ 50 mls/hr Q12H IV 01/05/18 16:00 01/12/18 15:59 01/06/18 04:47 50 MLS/HR Benzonatate (Tessalon Perles Cap) 200 mg TID PRN PO 01/05/18 16:30 02/04/18 16:29 01/06/18 09:20 200 MG Clonazepam (Klonopin Tab) 2 mg HS PRN PO 01/05/18 16:30 02/04/18 16:29 01/05/18 21:14 2 MG Diltiazem HCl (Cardizem Cd Cap) 180 mg DAILY PO 01/06/18 09:00 02/05/18 08:59 01/06/18 09:19 180 MG Lisinopril (Zestril Tab) 20 mg DAILY PO 01/06/18 09:00 02/05/18 08:59 01/06/18 09:20 20 MG Perphenazine (Trilafon Tab) 4 mg BID PO 01/05/18 21:00 02/04/18 20:59 01/06/18 09:18 4 MG Pravastatin Sodium (Pravachol Tab) 40 mg HS PO 01/05/18 21:00 02/04/18 20:59 01/05/18 20:50 40 MG Welcome Carbonate (Welcome Carbonate Tab) 300 mg DAILY PO 01/06/18 09:00 02/05/18 08:59 01/06/18 09:19 300 MG Welcome Carbonate (Welcome Carbonate Tab) 600 mg PM PO 01/05/18 21:00 02/04/18 20:59 01/05/18 20:51 600 MG Pantoprazole Sodium (Protonix Tab) 40 mg DAILY PO 01/06/18 09:00 02/05/18 08:59 01/06/18 09:20 40 MG Perphenazine (Trilafon Tab) 8 mg BID PO 01/05/18 21:00 02/04/18 20:59 01/06/18 09:18 8 MG Prazosin HCl (Prazosin) 2 mg HS PO 01/05/18 21:00 02/04/18 20:59 01/05/18 20:50 2 MG Guaifenesin (Robitussin Sugar Free Syrup) 100 mg NOW STAT PO 01/06/18 10:35 01/06/18 10:36 UNV Guaifenesin (Robitussin Sugar Free Syrup) 100 mg Q6H PRN PO 01/06/18 10:45 02/05/18 10:44 UNV Clonazepam (Klonopin Tab) 0.5 mg NOW STAT PO 01/06/18 10:41 01/06/18 10:42 UNV Objective Vital Signs Date Time Temp Pulse Resp B/P (MAP) Pulse Ox O2 Delivery O2 Flow Rate FiO2 01/06/18 08:51 82 91 01/06/18 08:00 Room Air 01/06/18 07:55 87 18 125/73 (90) 95 Room Air 01/06/18 06:54 76 18 94 Nasal Cannula 4.0 01/06/18 04:53 36.3 80 20 126/60 (82) 94 Nasal Cannula 4.0 01/06/18 04:00 Room Air 01/06/18 00:00 Room Air 01/05/18 23:26 36.7 87 18 132/61 (84) 91 Nasal Cannula 4.0 01/05/18 20:00 93 Nasal Cannula 4.0 01/05/18 16:49 37.3 85 24 138/75 93 Nasal Cannula 4.0 01/05/18 16:12 87 20 133/67 93 Nasal Cannula 4.0 01/05/18 14:00 85 20 152/78 95 Room Air 01/05/18 13:40 88 18 96 Nasal Cannula 5.0 01/05/18 12:21 80 20 140/87 93 Nasal Cannula 4.0 01/05/18 12:07 81 01/05/18 11:45 82 20 93 Nasal Cannula 4.0 01/05/18 11:37 37.1 80 20 129/71 84 Room Air 01/05/18 11:37 84 Room Air Physical Exam General Appearance: no apparent distress, + obese, + pertinent finding (+ anxious, labile mood, tearful) Respiratory/Chest: no respiratory distress, no accessory muscle use, + decreased breath sounds, + wheezing (mild end expiratory wheezing diffusely) Cardiovascular: regular rate, rhythm, no edema, no murmur Abdomen: normal bowel sounds, non tender, soft, + hernia (abdominal wall hernia ) Neurologic/Psychiatric: no motor/sensory deficits, alert, oriented x 3, + depressed affect, + pertinent finding Skin: normal color Lymphatic: no adenopathy Laboratory Results Last 24 Hours Test 01/05/18 12:43 01/05/18 13:02 01/05/18 13:17 01/05/18 13:26 Influenza Type A (RT-PCR) Neg for Influ A Influenza Type B (RT-PCR) Neg for Influ B White Blood Count 13.52 K/uL Red Blood Count 4.58 M/uL Hemoglobin 12.8 g/dL Hematocrit 38.7 % Mean Corpuscular Volume 84.5 fL Mean Corpuscular Hemoglobin 27.9 pg Mean Corpuscular Hemoglobin Concent 33.1 g/dl Platelet Count 377 K/uL Mean Platelet Volume 9.5 fL Neutrophils (%) (Auto) 90.1 % Lymphocytes (%) (Auto) 6.0 % Monocytes (%) (Auto) 2.5 % Eosinophils (%) (Auto) 0.6 % Basophils (%) (Auto) 0.3 % Neutrophils # (Auto) 12.18 K/uL Lymphocytes # (Auto) 0.81 K/uL Monocytes # (Auto) 0.34 K/uL Eosinophils # (Auto) 0.08 K/uL Basophils # (Auto) 0.04 K/uL RDW Standard Deviation 45.2 fL RDW Coefficient of Variation 14.7 % Immature Granulocyte % (Auto) 0.5 % Immature Granulocyte # (Auto) 0.07 K/uL Prothrombin Time 10.3 SECONDS Prothromb Time International Ratio 1.0 Activated Partial Thromboplast Time 27.7 SECONDS Partial Thromboplastin Ratio 1.1 Sodium Level 130 mmol/L Potassium Level 4.3 mmol/L Chloride Level 95 mmol/L Carbon Dioxide Level 29 mmol/L Anion Gap 6.0 mmol/L Blood Urea Nitrogen 9 mg/dl Creatinine 0.83 mg/dl Est Creatinine Clear Calc Drug Dose 91.3 ml/min Estimated GFR () 92.0 Estimated GFR (Non- 79.4 BUN/Creatinine Ratio 10.5 Random Glucose 291 mg/dl Calcium Level 9.4 mg/dl Troponin I < 0.021 ng/ml Welcome Level 1.0 mMOL/L Bedside Lactic Acid Venous 0.89 mmol/L Bedside Glucose 293 mg/dl Test 01/05/18 13:31 01/05/18 13:45 01/05/18 14:13 01/05/18 16:47 Venous Blood pH 7.40 Venous Blood Partial Pressure CO2 49 mmHg Venous Blood Partial Pressure O2 68 mmHg Venous Blood HCO3 29 mmol/L Venous Blood Oxygen Saturation 92.7 % Venous Blood Base Excess 3.7 mEq/L Influenza Type A Antigen Neg for Influ A Influenza Type B Antigen Neg for Influ B Bedside Troponin I < 0.030 ng/ml Bedside Glucose 532 mg/dl Test 01/05/18 18:51 01/05/18 20:05 01/05/18 23:27 01/06/18 04:49 Bedside Glucose 478 mg/dl 395 mg/dl 341 mg/dl 91 mg/dl Test 01/06/18 05:44 White Blood Count 16.89 K/uL Red Blood Count 4.29 M/uL Hemoglobin 12.1 g/dL Hematocrit 36.4 % Mean Corpuscular Volume 84.8 fL Mean Corpuscular Hemoglobin 28.2 pg Mean Corpuscular Hemoglobin Concent 33.2 g/dl Platelet Count 387 K/uL Mean Platelet Volume 9.8 fL Neutrophils (%) (Auto) 87.3 % Lymphocytes (%) (Auto) 7.8 % Monocytes (%) (Auto) 4.0 % Eosinophils (%) (Auto) 0.0 % Basophils (%) (Auto) 0.1 % Neutrophils # (Auto) 14.75 K/uL Lymphocytes # (Auto) 1.32 K/uL Monocytes # (Auto) 0.67 K/uL Eosinophils # (Auto) 0.00 K/uL Basophils # (Auto) 0.01 K/uL RDW Standard Deviation 44.9 fL RDW Coefficient of Variation 14.5 % Immature Granulocyte % (Auto) 0.8 % Immature Granulocyte # (Auto) 0.14 K/uL Sodium Level 135 mmol/L Potassium Level 4.1 mmol/L Chloride Level 99 mmol/L Carbon Dioxide Level 31 mmol/L Anion Gap 5.0 mmol/L Blood Urea Nitrogen 17 mg/dl Creatinine 0.79 mg/dl Est Creatinine Clear Calc Drug Dose 95.8 ml/min Estimated GFR () 97.7 Estimated GFR (Non- 84.3 BUN/Creatinine Ratio 21.5 Random Glucose 113 mg/dl Estimated Average Glucose 194 mg/dl Hemoglobin A1c 8.4 % Calcium Level 9.0 mg/dl Assessment and Plan This is a 57 year old female with a PMH of depression/anxiety, mood disorders, obesity/hypoventilation, restrictive lung disease, chronic hypoxic respiratory failure, HTN - presents with shortness of breath Acute on Chronic Hypoxic Respiratory Failure Obesity-Hypoventilation Syndrome Restrictive Lung Disease patient is chronically on 2L of O2 during the daytime and 3L of O2 nocturnally she has a known obesity-hypoventilation with a component of restrictive lung disease presented with difficulty breathing and hypoxia she was started on steroids, tapering as per pulmonology continue O2 should use CPAP nocturnally, but she does not want to as it makes her anxious she can have nebulizer treatment as needed Tessalon and Deonitussin for the cough continue Doxycycline to cover any bacterial infections Insulin Dependent DM2, labile blood sugars have been elevated on admission due to steroid use possible non-compliance by the patient she uses NPH 70/30 at a very high dose as outpatient (80 units in the AM, 65 units in the PM) will stop outpatient regimen, appreciate pharmacy glycemic control input currently on Lantus 42 units BID and a sliding scale, monitor and adjust as she may have hypoglycemic episodes Depression/Anxiety/Mood Disorder appreciate psych input for now, we will continue Welcome, Trilafon, Prazosin and Klonopin as prescribed HTN blood pressure is controlled continue Lisinopril and Cardizem DVT ppx Lovenox FULL CODE
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
[2018-01-06] MEDS: ENOXAPARIN 40 MG/0.4 ML SYR SC SCH (21:26)
[2018-01-06] MEDS: PRAVASTATIN SOD 40 MG TAB PO SCH (21:27)
[2018-01-06] MEDS: PRAZOSIN HCL 1 MG CAP PO SCH (21:27)
[2018-01-06] MEDS: GUAIFENESIN SUGAR FREE 100 MG/5 ML UDC PO PRN (21:27)
[2018-01-06] MEDS: CLONAZEPAM 1 MG TAB PO PRN (21:29)
[2018-01-07] VITALS (9 sets, daily range): BP systolic 104–162; BP diastolic 63–86; PULSE 78–96; TEMP 36.4–37.8; O2SAT 92–99
[2018-01-07] MEDS: INSULIN ASPART 100 UNITS/ML 3 ML PEN SC SCH ×6 (00:17→20:32)
[2018-01-07] MEDS ORDERED: INSULIN ASPART 100 UNITS/ML 3 ML PEN SC ONE (02:00)
[2018-01-07] MEDS: DOXYCYCLINE IV 100 MG in DEXTROSE 5% 100ML 100 ML IV SCH ×2 (04:21→17:13)
[2018-01-07] MEDS: ALBUT/IPRATROP 3MG/0.5MG NEB 3 ML VIAL INH SCH ×2 (06:51→11:38)
[2018-01-07 07:08] LABS: HEMOGLOBIN 11.9 g/dL (12.0-16.0); MEAN CELL VOLUME 86.7 fL (80-100); MEAN CORPUSCULAR HEMOGLOBIN 27.9 pg (25-34); MEAN CORPUSCULAR HGB CONC 32.2 g/dl (32-36); MEAN PLATELET VOLUME 10.2 fL (7.4-10.4); PLATELET COUNT 422 K/uL (130-400); RED CELL DISTRIBUTION WIDTH CV 15.1 % (11.5-14.5); RED CELL DISTRIBUTION WIDTH SD 46.9 fL (36.4-46.3); WHITE BLOOD COUNT 20.73 K/uL (4.8-10.8)
[2018-01-07 07:51] LABS: CREATININE 0.91 mg/dl (0.60-1.20); POTASSIUM 3.9 mmol/L (3.5-5.1)
[2018-01-07] MEDS: DILTIAZEM HCL 180 MG CAPCR PO SCH (08:35)
[2018-01-07] MEDS: PANTOprazole SOD 40 MG TAB PO SCH (08:36)
[2018-01-07] MEDS: LITHIUM CARBONATE 300 MG TAB PO SCH ×2 (08:36→20:17)
[2018-01-07] MEDS: LISINOPRIL 20 MG TAB PO SCH (08:36)
[2018-01-07] MEDS: PERPHENAZINE 2 MG TAB PO SCH ×3 (08:37→20:18)
[2018-01-07] MEDS: INSULIN GLARGINE SOLOSTAR 100 UNITS/ML 3 ML PEN SC SCH (08:41)
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
--- NOTE | 2018-01-07 13:18 | DIAGNOSTIC IMAGING REPORT ---
CHEST ONE VIEW PORTABLE CLINICAL HISTORY: leukocytosis with associated SOB COMPARISON STUDY: Chest CT June 06, 2017 and chest radiograph January 05, 2018. FINDINGS: There is no pneumothorax or pleural effusion. Cardiomediastinal silhouette is stable. There is no evidence for pulmonary edema. The appearance of the chest is unchanged. No consolidation is identified. IMPRESSION: No acute cardiopulmonary findings. No change in appearance of the chest. Electronically signed by: Cheng Joy M.D. 01/07/2018 1:17 PM Dictated Date/Time: 01/07/2018 1:15 PM
[2018-01-07] MEDS: BENZONATATE 100MG CAP PO PRN ×2 (13:48→20:18)
--- NOTE | 2018-01-07 15:32 | Pharmacy Progress Note ---
Pharmacy Glycemic Short Note 2 Date of Service Jan 07, 2018. OUTPATIENT ANTIDIABETIC REGIMEN: * Novolin 70/30 insulin 80 units Q AM + 65 units Q PM * Pioglitazone 15mg PO daily * A1c = 8.4% 01/06/18 ASSESSMENT: 01/05/18 * Type 2 diabetic admitted today for COPD exacerbation * Patient appears to be relatively insulin resistant given reported outpt doses of insulin ~145 units/day * Glu on initial labs 291 and patient will be receiving steroids this admission * Will begin a basal/bolus regimen using a "stressed" home dosage of insulin. Lantus + Novolog will be used instead of 70/30 insulin given greater flexibility for dose adjustments and less risk of hypoglycemia in the inpatient setting. 01/06/18 * Ms. Reyes received 185 units of insulin yesterday and BSGs are much improved this AM - fasting of 113 mg/dL * She ended up not receiving any prednisone yesterday, that I could see on the JAN, but will be receiving prednisone 40 mg daily starting this AM * Will plan to continue with the "stressed" basal dose for now but tighten the CR since postprandial BSGs were still elevated yesterday and will receive steroids today 01/07/18 * Patient received 207 units of insulin yesterday * Prednisone has been cut in 11/21 today to 20 mg daily * Will loosen CF/CR slightly * Will also decrease PM dose of Lantus, continue same AM dose for now since this is already close to basal requirements as an outpatient PLAN FOR INPATIENT GLYCEMIC CONTROL: * Contine to hold outpatient oral diabetes medications * Basal insulin - decrease PM dose only * Lantus 42 units SQ qAM, 35 units qPM * Bolus insulin * NovoLog per scale ACHS or Q6hrs while NPO * Goal Range: Low 110 mg/dL - High 140 mg/dL * LOOSEN Correction Factor: 10 mg/dL/unit * LOOSEN Nutritional / Prandial insulin per carb ratio of 1 unit per 3 grams CHO consumed
--- NOTE | 2018-01-07 16:03 | Progress Note ---
Subjective Date of Service: Jan 07, 2018. Subjective Pt evaluation today including: conversation w/ patient, physical exam, lab review, review of studies, review of inpatient medication list Saw/examined the patient in room 215 Breathing status is improving currently on 4L of O2 via nasal cannula denies any other issues Problem List Medical Problems: (1) Acute respiratory failure with hypoxia Status: Acute (2) Anxiety Status: Acute (3) COPD (chronic obstructive pulmonary disease) Status: Acute (4) COPD exacerbation Status: Acute (5) Homicidal ideations Status: Acute (6) Hypoxia Status: Acute (7) Paranoid behavior Status: Acute (8) PNA (pneumonia) Status: Acute Review of Systems Constitutional: No fever, No chills Respiratory: + shortness of breath, + dyspnea on exertion, + dyspnea at rest, No cough, No sputum, No wheezing, No hemoptysis Cardiac: No chest pain Medications Current Inpatient Medications Medications (Trade) Dose Ordered Sig/Uriel Route Start Time Stop Time Status Last Admin Dose Admin Enoxaparin Sodium (Lovenox Inj) 40 mg Q24H SC 01/05/18 21:00 02/04/18 20:59 01/06/18 21:26 40 MG Acetaminophen (Tylenol Tab) 650 mg Q4H PRN PO 01/05/18 15:30 02/04/18 15:29 01/06/18 09:29 650 MG Ondansetron HCl (Zofran Inj) 4 mg Q6H PRN IV 01/05/18 15:30 02/04/18 15:29 Nitroglycerin (Nitrostat Tab) 0.4 mg UD PRN SL 01/05/18 15:30 02/04/18 15:29 Polyethylene (Miralax Powder Packet) 17 gm DAILY PRN PO 01/05/18 15:30 02/04/18 15:29 Insulin Aspart (novoLOG ASPART) SLIDING SCALE If C... ACHS SC 01/05/18 16:00 02/04/18 15:59 01/07/18 14:00 23 UNITS Glucose (Glucose 40% Gel) 15-30 GRAMS 15 GRAMS... UD PRN PO 01/05/18 16:00 02/04/18 15:59 Glucose (Glucose Chew Tab) 4-8 Tablets 4 Tabl... UD PRN PO 01/05/18 16:00 3/18/18 15:59 Dextrose (Dextrose 50% 50ML Syringe) 25-50ML OF 50% DW IV FOR... UD PRN IV 01/05/18 16:00 02/04/18 15:59 Glucagon (Glucagon Inj) 1 mg UD PRN SQ 01/05/18 16:00 02/04/18 15:59 Miscellaneous Information (Consult Glycemic Management Pharmacy) 1 ea UD N/A 01/05/18 16:26 02/04/18 16:25 Doxycycline Hyclate 100 mg/ Dextrose 110 ml @ 50 mls/hr Q12H IV 01/05/18 16:00 01/12/18 15:59 01/07/18 04:21 50 MLS/HR Benzonatate (Tessalon Perles Cap) 200 mg TID PRN PO 01/05/18 16:30 02/04/18 16:29 01/07/18 13:48 200 MG Clonazepam (Klonopin Tab) 2 mg HS PRN PO 01/05/18 16:30 02/04/18 16:29 01/06/18 21:29 2 MG Diltiazem HCl (Cardizem Cd Cap) 180 mg DAILY PO 01/06/18 09:00 02/05/18 08:59 01/07/18 08:35 180 MG Lisinopril (Zestril Tab) 20 mg DAILY PO 01/06/18 09:00 02/05/18 08:59 01/07/18 08:36 20 MG Pravastatin Sodium (Pravachol Tab) 40 mg HS PO 01/05/18 21:00 02/04/18 20:59 01/06/18 21:27 40 MG [place] Carbonate ([place] Carbonate Tab) 300 mg DAILY PO 01/06/18 09:00 02/05/18 08:59 01/07/18 08:36 300 MG [place] Carbonate ([place] Carbonate Tab) 600 mg PM PO 01/05/18 21:00 02/04/18 20:59 01/06/18 21:29 600 MG Pantoprazole Sodium (Protonix Tab) 40 mg DAILY PO 01/06/18 09:00 02/05/18 08:59 01/07/18 08:36 40 MG Prazosin HCl (Prazosin) 2 mg HS PO 01/05/18 21:00 02/04/18 20:59 01/06/18 21:27 2 MG Guaifenesin (Robitussin Sugar Free Syrup) 100 mg Q6H PRN PO 01/06/18 10:45 02/05/18 10:44 01/06/18 21:27 100 MG Prednisone (PredniSONE TAB) 20 mg DAILY PO 01/07/18 09:00 01/18/18 08:00 01/07/18 08:35 20 MG Perphenazine (Trilafon Tab) 12 mg BID PO 01/06/18 21:00 02/05/18 20:59 01/07/18 08:44 12 MG Albuterol/ Ipratropium (Combivent Respimat Inh) 1 puffs QID INH 01/07/18 16:00 02/06/18 15:59 Insulin Glargine (Lantus Solostar Pen) 42 units QAM SC 01/08/18 09:00 02/07/18 08:59 Insulin Glargine (Lantus Solostar Pen) 35 units PM SC 01/07/18 21:00 02/06/18 20:59 Objective Vital Signs Date Time Temp Pulse Resp B/P (MAP) Pulse Ox O2 Delivery O2 Flow Rate FiO2 01/07/18 12:00 Nasal Cannula 4.0 01/07/18 11:51 37.8 92 20 119/73 (88) 93 Nasal Cannula 01/07/18 11:38 96 18 92 Nasal Cannula 4.0 01/07/18 08:31 36.4 94 18 156/84 (108) 99 Nasal Cannula 01/07/18 08:00 Nasal Cannula 4.0 01/07/18 06:52 80 18 96 Nasal Cannula 4.0 01/07/18 04:00 36.6 81 20 104/65 (78) 93 Nasal Cannula 4.0 01/07/18 04:00 Nasal Cannula 4.0 01/07/18 00:00 Nasal Cannula 4.0 01/06/18 23:15 36.5 84 20 124/69 (87) 93 Nasal Cannula 4.0 01/06/18 20:12 36.7 74 20 129/74 (92) 95 Nasal Cannula 4.0 01/06/18 20:00 Nasal Cannula 4.0 01/06/18 19:35 73 18 94 Nasal Cannula 4.0 01/06/18 16:00 Nasal Cannula 4.0 Physical Exam General Appearance: no apparent distress, + obese Respiratory/Chest: no respiratory distress, no accessory muscle use, + decreased breath sounds Cardiovascular: regular rate, rhythm, no edema, no murmur Neurologic/Psychiatric: no motor/sensory deficits, alert, normal mood/affect Laboratory Results Last 24 Hours Test 01/06/18 16:05 01/06/18 20:14 01/06/18 23:36 01/07/18 04:07 Bedside Glucose 125 mg/dl 110 mg/dl 154 mg/dl 113 mg/dl Test 01/07/18 06:17 01/07/18 06:32 01/07/18 11:24 White Blood Count 20.73 K/uL Red Blood Count 4.27 M/uL Hemoglobin 11.9 g/dL Hematocrit 37.0 % Mean Corpuscular Volume 86.7 fL Mean Corpuscular Hemoglobin 27.9 pg Mean Corpuscular Hemoglobin Concent 32.2 g/dl RDW Standard Deviation 46.9 fL RDW Coefficient of Variation 15.1 % Platelet Count 422 K/uL Mean Platelet Volume 10.2 fL Sodium Level 135 mmol/L Potassium Level 3.9 mmol/L Chloride Level 98 mmol/L Carbon Dioxide Level 31 mmol/L Anion Gap 6.0 mmol/L Blood Urea Nitrogen 26 mg/dl Creatinine 0.91 mg/dl Est Creatinine Clear Calc Drug Dose 84.4 ml/min Estimated GFR () 82.3 Estimated GFR (Non- 71.0 BUN/Creatinine Ratio 28.8 Random Glucose 97 mg/dl Calcium Level 9.0 mg/dl Magnesium Level 2.5 mg/dl Bedside Glucose 102 mg/dl 121 mg/dl Assessment and Plan This is a 57 year old female with a PMH of depression/anxiety, mood disorders, obesity/hypoventilation, restrictive lung disease, chronic hypoxic respiratory failure, HTN - presents with shortness of breath Acute on Chronic Hypoxic Respiratory Failure Obesity-Hypoventilation Syndrome Restrictive Lung Disease 01/07 uses 2L of O2 chronically, 3L with exertion; currently on 4L currently on steroids, taper as per pulm CXR with no acute findings cont. doxy 01/06 patient is chronically on 2L of O2 during the daytime and 3L of O2 nocturnally she has a known obesity-hypoventilation with a component of restrictive lung disease presented with difficulty breathing and hypoxia she was started on steroids, tapering as per pulmonology continue O2 should use CPAP nocturnally, but she does not want to as it makes her anxious she can have nebulizer treatment as needed Tessalon and Robitussin for the cough continue Doxycycline to cover any bacterial infections Insulin Dependent DM2, labile blood sugars have been elevated on admission due to steroid use possible non-compliance by the patient she uses NPH 70/30 at a very high dose as outpatient (80 units in the AM, 65 units in the PM) will stop outpatient regimen, appreciate pharmacy glycemic control input currently on Lantus 42 units BID and a sliding scale, monitor and adjust as she may have hypoglycemic episodes Depression/Anxiety/Mood Disorder appreciate psych input for now, we will continue [place], Trilafon, Prazosin and Klonopin as prescribed HTN blood pressure is controlled continue Lisinopril and Cardizem DVT ppx Lovenox FULL CODE
[2018-01-07] MEDS: IPRATROPIUM BROMIDE/ALBUTEROL respimat INH INH SCH ×3 (17:00→20:17)
--- NOTE | 2018-01-07 19:23 | Psychiatric Consultation ---
Psychiatric Consultation Date of Service: Jan 07, 2018. stopped by to see pt this evening she is tired but nausea improving and no diarrhe and without tremor, pt shared how agreed to bipap no change for psychiatric recommendations at this time
[2018-01-07] MEDS: GUAIFENESIN SUGAR FREE 100 MG/5 ML UDC PO PRN (20:16)
[2018-01-07] MEDS: CLONAZEPAM 1 MG TAB PO PRN (20:16)
[2018-01-07] MEDS: PRAVASTATIN SOD 40 MG TAB PO SCH (20:19)
[2018-01-07] MEDS: PRAZOSIN HCL 1 MG CAP PO SCH (20:19)
[2018-01-07] MEDS: ENOXAPARIN 40 MG/0.4 ML SYR SC SCH (20:20)
[2018-01-07] MEDS ORDERED: INSULIN GLARGINE SOLOSTAR 100 UNITS/ML 3 ML PEN SC SCH (21:00)
[2018-01-08] VITALS (10 sets, daily range): BP systolic 129–154; BP diastolic 65–101; PULSE 61–105; TEMP 36.6–37.6; O2SAT 93–97; Ht 157.5 cm; Wt 116.9 kg
[2018-01-08] MEDS: DOXYCYCLINE IV 100 MG in DEXTROSE 5% 100ML 100 ML IV SCH (04:15)
[2018-01-08 05:41] LABS: HEMOGLOBIN 12.7 g/dL (12.0-16.0); MEAN CELL VOLUME 87.7 fL (80-100); MEAN CORPUSCULAR HEMOGLOBIN 27.9 pg (25-34); MEAN CORPUSCULAR HGB CONC 31.8 g/dl (32-36); MEAN PLATELET VOLUME 10.4 fL (7.4-10.4); PLATELET COUNT 396 K/uL (130-400); RED CELL DISTRIBUTION WIDTH CV 15.1 % (11.5-14.5); RED CELL DISTRIBUTION WIDTH SD 48.3 fL (36.4-46.3)
[2018-01-08 05:57] LABS: CREATININE 0.92 mg/dl (0.60-1.20); POTASSIUM 4.6 mmol/L (3.5-5.1)
[2018-01-08] MEDS: IPRATROPIUM BROMIDE/ALBUTEROL respimat INH INH SCH ×4 (07:27→20:27)
[2018-01-08] MEDS: PANTOprazole SOD 40 MG TAB PO SCH (07:27)
[2018-01-08] MEDS: DILTIAZEM HCL 180 MG CAPCR PO SCH (07:27)
[2018-01-08] MEDS: LISINOPRIL 20 MG TAB PO SCH (07:27)
[2018-01-08] MEDS: LITHIUM CARBONATE 300 MG TAB PO SCH ×2 (07:28→20:28)
[2018-01-08] MEDS: PERPHENAZINE 2 MG TAB PO SCH ×2 (07:29→20:28)
[2018-01-08] MEDS: INSULIN ASPART 100 UNITS/ML 3 ML PEN SC SCH ×4 (07:33→20:32)
[2018-01-08] MEDS ORDERED: INSULIN GLARGINE SOLOSTAR 100 UNITS/ML 3 ML PEN SC SCH (09:00)
--- NOTE | 2018-01-08 11:47 | Progress Note ---
Subjective Date of Service: Jan 08, 2018. Subjective Pt evaluation today including: conversation w/ patient, physical exam, lab review, review of studies, review of inpatient medication list Saw/examined the patient in room 215 She is c/o feeling off and not being able to get out her words Breathing continues to trouble her, but she states she attempted to use bipap last evening Problem List Medical Problems: (1) Acute respiratory failure with hypoxia Status: Acute (2) Anxiety Status: Acute (3) COPD (chronic obstructive pulmonary disease) Status: Acute (4) COPD exacerbation Status: Acute (5) Homicidal ideations Status: Acute (6) Hypoxia Status: Acute (7) Paranoid behavior Status: Acute (8) PNA (pneumonia) Status: Acute Review of Systems Constitutional: No fever, No chills, No weakness Respiratory: + cough, + sputum, + shortness of breath, + dyspnea on exertion, No wheezing Cardiac: No chest pain Psychiatric: + depression symptoms (improved with medications), + anxiety, + insomnia Medications Current Inpatient Medications Medications (Trade) Dose Ordered Sig/Uriel Route Start Time Stop Time Status Last Admin Dose Admin Enoxaparin Sodium (Lovenox Inj) 40 mg Q24H SC 01/05/18 21:00 02/04/18 20:59 01/07/18 20:20 40 MG Acetaminophen (Tylenol Tab) 650 mg Q4H PRN PO 01/05/18 15:30 02/04/18 15:29 01/06/18 09:29 650 MG Ondansetron HCl (Zofran Inj) 4 mg Q6H PRN IV 01/05/18 15:30 02/04/18 15:29 Nitroglycerin (Nitrostat Tab) 0.4 mg UD PRN SL 01/05/18 15:30 02/04/18 15:29 Polyethylene (Miralax Powder Packet) 17 gm DAILY PRN PO 01/05/18 15:30 02/04/18 15:29 Insulin Aspart (novoLOG ASPART) SLIDING SCALE If C... ACHS SC 01/05/18 16:00 02/04/18 15:59 01/08/18 07:33 19 UNITS Glucose (Glucose 40% Gel) 15-30 GRAMS 15 GRAMS... UD PRN PO 01/05/18 16:00 02/04/18 15:59 Glucose (Glucose Chew Tab) 4-8 Tablets 4 Tabl... UD PRN PO 01/05/18 16:00 02/04/18 15:59 Dextrose (Dextrose 50% 50ML Syringe) 25-50ML OF 50% DW IV FOR... UD PRN IV 01/05/18 16:00 02/04/18 15:59 Glucagon (Glucagon Inj) 1 mg UD PRN SQ 01/05/18 16:00 02/04/18 15:59 Miscellaneous Information (Consult Glycemic Management Pharmacy) 1 ea UD N/A 01/05/18 16:26 02/04/18 16:25 Benzonatate (Tessalon Perles Cap) 200 mg TID PRN PO 01/05/18 16:30 02/04/18 16:29 01/07/18 20:18 200 MG Clonazepam (Klonopin Tab) 2 mg HS PRN PO 01/05/18 16:30 02/04/18 16:29 01/07/18 20:16 2 MG Diltiazem HCl (Cardizem Cd Cap) 180 mg DAILY PO 01/06/18 09:00 02/05/18 08:59 01/08/18 07:27 180 MG Lisinopril (Zestril Tab) 20 mg DAILY PO 01/06/18 09:00 02/05/18 08:59 01/08/18 07:27 20 MG Pravastatin Sodium (Pravachol Tab) 40 mg HS PO 01/05/18 21:00 02/04/18 20:59 01/07/18 20:19 40 MG [place] Carbonate ([place] Carbonate Tab) 300 mg DAILY PO 01/06/18 09:00 02/05/18 08:59 01/08/18 07:28 300 MG [place] Carbonate ([place] Carbonate Tab) 600 mg PM PO 01/05/18 21:00 02/04/18 20:59 01/07/18 20:17 600 MG Pantoprazole Sodium (Protonix Tab) 40 mg DAILY PO 01/06/18 09:00 02/05/18 08:59 01/08/18 07:27 40 MG Prazosin HCl (Prazosin) 2 mg HS PO 01/05/18 21:00 02/04/18 20:59 01/07/18 20:19 2 MG Guaifenesin (Robitussin Sugar Free Syrup) 100 mg Q6H PRN PO 01/06/18 10:45 02/05/18 10:44 01/07/18 20:16 100 MG Prednisone (PredniSONE TAB) 20 mg DAILY PO 01/07/18 09:00 01/18/18 08:00 01/08/18 07:27 20 MG Perphenazine (Trilafon Tab) 12 mg BID PO 01/06/18 21:00 02/05/18 20:59 01/08/18 07:29 12 MG Albuterol/ Ipratropium (Combivent Respimat Inh) 1 puffs QID INH 01/07/18 16:00 02/06/18 15:59 01/08/18 07:27 1 PUFFS Insulin Glargine (Lantus Solostar Pen) 42 units QAM SC 01/08/18 09:00 02/07/18 08:59 01/08/18 07:34 42 UNITS Insulin Glargine (Lantus Solostar Pen) 35 units PM SC 01/07/18 21:00 02/06/18 20:59 01/07/18 20:33 35 UNITS Doxycycline Hyclate (Vibramycin Cap) 100 mg BID PO 01/08/18 16:00 01/12/18 15:59 Objective Vital Signs Date Time Temp Pulse Resp B/P (MAP) Pulse Ox O2 Delivery O2 Flow Rate FiO2 01/08/18 10:56 37.6 83 18 154/75 (101) 95 4.0 01/08/18 08:00 61 01/08/18 08:00 93 Nasal Cannula 4.0 01/08/18 07:56 98 2 135/77 (96) 95 4.0 01/08/18 04:00 Nasal Cannula 4.0 01/08/18 03:48 105 22 151/101 (118) 97 Nasal Cannula 4.0 01/08/18 01:40 10.0 01/08/18 00:00 97 95 8.0 01/08/18 00:00 BiPAP 8.0 01/07/18 23:13 36.8 95 18 119/63 (81) 93 CPAP 8.0 01/07/18 21:30 82 93 8.0 01/07/18 20:00 Nasal Cannula 4.0 01/07/18 19:17 37.1 79 20 162/86 (111) 95 Nasal Cannula 4.0 01/07/18 16:14 36.5 78 16 132/64 (86) 92 Nasal Cannula 4.0 01/07/18 16:00 Nasal Cannula 4.0 01/07/18 12:00 Nasal Cannula 4.0 01/07/18 11:51 37.8 92 20 119/73 (88) 93 Nasal Cannula 01/07/18 11:38 96 18 92 Nasal Cannula 4.0 Physical Exam General Appearance: no apparent distress, + obese Respiratory/Chest: no respiratory distress, no accessory muscle use, + wheezing (mild end expiratory wheezing) Cardiovascular: regular rate, rhythm Abdomen: + hernia Extremities: normal inspection, no pedal edema Laboratory Results Last 24 Hours Test 01/07/18 16:17 01/07/18 17:45 01/07/18 19:57 01/08/18 04:59 Bedside Glucose 140 mg/dl 81 mg/dl Urine Color YELLOW Urine Appearance CLEAR Urine pH 6.5 Urine Specific [place] 1.005 Urine Protein NEG Urine Glucose (UA) NEG Urine Ketones NEG Urine Occult Blood NEG Urine Nitrite NEG Urine Bilirubin NEG Urine Urobilinogen NEG Urine Leukocyte Esterase TRACE Urine WBC (Auto) 1-5 /hpf Urine RBC (Auto) 0-4 /hpf Urine Hyaline Casts (Auto) 0 /lpf Urine Epithelial Cells (Auto) 10-20 /lpf Urine Bacteria (Auto) 2+ White Blood Count 17.40 K/uL Red Blood Count 4.56 M/uL Hemoglobin 12.7 g/dL Hematocrit 40.0 % Mean Corpuscular Volume 87.7 fL Mean Corpuscular Hemoglobin 27.9 pg Mean Corpuscular Hemoglobin Concent 31.8 g/dl RDW Standard Deviation 48.3 fL RDW Coefficient of Variation 15.1 % Platelet Count 396 K/uL Mean Platelet Volume 10.4 fL Sodium Level 136 mmol/L Potassium Level 4.6 mmol/L Chloride Level 99 mmol/L Carbon Dioxide Level 28 mmol/L Anion Gap 9.0 mmol/L Blood Urea Nitrogen 20 mg/dl Creatinine 0.92 mg/dl Est Creatinine Clear Calc Drug Dose 83.5 ml/min Estimated GFR () 81.2 Estimated GFR (Non- 70.1 BUN/Creatinine Ratio 22.2 Random Glucose 171 mg/dl Calcium Level 9.0 mg/dl Test 2/19/18 06:02 01/08/18 10:15 Bedside Glucose 155 mg/dl Lab Scanned Report Lab Referral [id number] Assessment and Plan This is a 57 year old female with a PMH of depression/anxiety, mood disorders, obesity/hypoventilation, restrictive lung disease, chronic hypoxic respiratory failure, HTN - presents with shortness of breath Acute on Chronic Hypoxic Respiratory Failure Obesity-Hypoventilation Syndrome Restrictive Lung Disease 01/08 continues to feel short of breath, worse in the mornings has now used bipap nocturnally, which may improve her symptoms continue steroids and taper as per pulmonology continue doxycycline wean O2 as tolerated 01/07 uses 2L of O2 chronically, 3L with exertion; currently on 4L currently on steroids, taper as per pulm CXR with no acute findings cont. doxy 01/06 patient is chronically on 2L of O2 during the daytime and 3L of O2 nocturnally she has a known obesity-hypoventilation with a component of restrictive lung disease presented with difficulty breathing and hypoxia she was started on steroids, tapering as per pulmonology continue O2 should use CPAP nocturnally, but she does not want to as it makes her anxious she can have nebulizer treatment as needed Tessalon and Robitussin for the cough continue Doxycycline to cover any bacterial infections Insulin Dependent DM2, labile blood sugars have been elevated on admission due to steroid use possible non-compliance by the patient she uses NPH 70/30 at a very high dose as outpatient (80 units in the AM, 65 units in the PM) will stop outpatient regimen, appreciate pharmacy glycemic control input currently on Lantus 42 units BID and a sliding scale, monitor and adjust as she may have hypoglycemic episodes UTI urine culture positive for E. coli continue Doxycycline for now, sensitivity pending Depression/Anxiety/Mood Disorder appreciate psych input for now, we will continue [place], Trilafon, Prazosin and Klonopin as prescribed HTN blood pressure is controlled continue Lisinopril and Cardizem DVT ppx Lovenox FULL CODE
[2018-01-08] MEDS: BENZONATATE 100MG CAP PO PRN ×2 (14:53→23:48)
[2018-01-08] MEDS: DOXYCYCLINE HYCLATE 100 MG CAP PO SCH ×2 (14:53→16:27)
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
[2018-01-08] MEDS: ENOXAPARIN 40 MG/0.4 ML SYR SC SCH (20:28)
[2018-01-08] MEDS: PRAZOSIN HCL 1 MG CAP PO SCH (20:29)
[2018-01-08] MEDS: PRAVASTATIN SOD 40 MG TAB PO SCH (20:29)
[2018-01-08] MEDS: INSULIN GLARGINE SOLOSTAR 100 UNITS/ML 3 ML PEN SC SCH (20:33)
[2018-01-08] MEDS: GUAIFENESIN SUGAR FREE 100 MG/5 ML UDC PO PRN (23:47)
[2018-01-09] VITALS (11 sets, daily range): BP systolic 127–163; BP diastolic 65–113; PULSE 61–91; TEMP 36.3–37.1; O2SAT 93–99
[2018-01-09] MEDS ORDERED: COUGH DROP (SUGAR FREE) LOZ 24 LOZ/1 BOX LOZ PRN (06:00)
[2018-01-09] MEDS: IPRATROPIUM BROMIDE/ALBUTEROL respimat INH INH SCH ×4 (09:04→21:10)
[2018-01-09] MEDS: GUAIFENESIN SUGAR FREE 100 MG/5 ML UDC PO PRN ×2 (09:06→15:32)
[2018-01-09] MEDS: DILTIAZEM HCL 180 MG CAPCR PO SCH (09:08)
[2018-01-09] MEDS: LITHIUM CARBONATE 300 MG TAB PO SCH ×2 (09:09→21:04)
[2018-01-09] MEDS: PANTOprazole SOD 40 MG TAB PO SCH (09:10)
[2018-01-09] MEDS: PERPHENAZINE 2 MG TAB PO SCH ×2 (09:11→21:09)
[2018-01-09] MEDS: DOXYCYCLINE HYCLATE 100 MG CAP PO SCH ×2 (09:12→21:05)
[2018-01-09] MEDS: LISINOPRIL 20 MG TAB PO SCH (09:13)
[2018-01-09] MEDS: INSULIN ASPART 100 UNITS/ML 3 ML PEN SC SCH ×4 (09:16→21:13)
[2018-01-09] MEDS: INSULIN GLARGINE SOLOSTAR 100 UNITS/ML 3 ML PEN SC SCH ×2 (09:19→21:14)
[2018-01-09] MEDS: BENZONATATE 100MG CAP PO PRN ×2 (09:20→15:31)
--- NOTE | 2018-01-09 11:05 | Pharmacy Progress Note ---
Pharmacy Glycemic Short Note 2 Date of Service Jan 09, 2018. OUTPATIENT ANTIDIABETIC REGIMEN: * Novolin 70/30 insulin 80 units Q AM + 65 units Q PM * Pioglitazone 15mg PO daily * A1c = 8.4% 01/06/18 ASSESSMENT: * Patient has received ~144 units of insulin per day past 2 days, with BSGs relatively well-controlled. * Basal insulin has been titrated down as steroid dose decreases to avoid hypoglycemia. * Will continue to adjust as needed. Expect that Novolog parameters will require "loosening" in the next day or so. PLAN FOR INPATIENT GLYCEMIC CONTROL: * Contine to hold outpatient oral diabetes medications * Basal insulin - * Lantus 30 units SQ BID * Bolus insulin * NovoLog per scale ACHS or Q6hrs while NPO * Goal Range: Low 110 mg/dL - High 140 mg/dL * LOOSEN Correction Factor: 10 mg/dL/unit * LOOSEN Nutritional / Prandial insulin per carb ratio of 1 unit per 3 grams CHO consumed DISCHARGE PLANNING: * Patient's A1c (8.4%) indicates sub-optimal glycemic control in a 57yo patient. A reasonable A1c goal would be ~6%. * May consider adjusting patient's insulin regimen at discharge? * Recommend close f/u with PCP after discharge to adjust regimen and work toward optimizing A1c.
[2018-01-09] MEDS: CIPROFLOXACIN 500 MG TAB PO SCH ×2 (11:11→21:10)
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
[2018-01-09] MEDS: PRAVASTATIN SOD 40 MG TAB PO SCH (21:05)
[2018-01-09] MEDS: PRAZOSIN HCL 1 MG CAP PO SCH (21:06)
[2018-01-09] MEDS: ENOXAPARIN 40 MG/0.4 ML SYR SC SCH (21:08)
[2018-01-09] MEDS: CLONAZEPAM 1 MG TAB PO PRN (21:29)
[2018-01-10] MEDS: BENZONATATE 100MG CAP PO PRN (03:23)
[2018-01-10] MEDS: GUAIFENESIN SUGAR FREE 100 MG/5 ML UDC PO PRN ×2 (03:23→11:22)
[2018-01-10 07:51] VITALS: BP 124/81; PULSE 96; TEMP 36.4; O2SAT 95
[2018-01-10] MEDS: DILTIAZEM HCL 180 MG CAPCR PO SCH (07:52)
[2018-01-10] MEDS: LITHIUM CARBONATE 300 MG TAB PO SCH (07:53)
[2018-01-10] MEDS: IPRATROPIUM BROMIDE/ALBUTEROL respimat INH INH SCH ×2 (07:53→12:41)
[2018-01-10] MEDS: LISINOPRIL 20 MG TAB PO SCH (07:53)
[2018-01-10] MEDS: PANTOprazole SOD 40 MG TAB PO SCH (07:53)
[2018-01-10] MEDS: CIPROFLOXACIN 500 MG TAB PO SCH (07:53)
[2018-01-10] MEDS: PERPHENAZINE 2 MG TAB PO SCH (07:54)
[2018-01-10] MEDS ORDERED: INSULIN GLARGINE SOLOSTAR 100 UNITS/ML 3 ML PEN SC SCH ×2 (08:00→20:00)
[2018-01-10 08:27] LABS: HEMOGLOBIN 13.6 g/dL (12.0-16.0); MEAN CELL VOLUME 86.4 fL (80-100); MEAN CORPUSCULAR HGB CONC 32.4 g/dl (32-36); MEAN PLATELET VOLUME 9.4 fL (7.4-10.4); PLATELET COUNT 401 K/uL (130-400); RED CELL DISTRIBUTION WIDTH CV 15.1 % (11.5-14.5); RED CELL DISTRIBUTION WIDTH SD 48.3 fL (36.4-46.3); WHITE BLOOD COUNT 17.61 K/uL (4.8-10.8)
[2018-01-10] MEDS: INSULIN ASPART 100 UNITS/ML 3 ML PEN SC SCH ×2 (08:48→12:43)
[2018-01-10 09:08] LABS: CALCIUM 9.4 mg/dl (8.5-10.1); CREATININE 0.77 mg/dl (0.60-1.20); POTASSIUM 4.1 mmol/L (3.5-5.1)
[2018-01-10 09:52] VITALS: O2SAT 95
[2018-01-10] MEDS ORDERED: CPR500 PO (12:24)
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
[2018-01-10 12:46] VITALS: BP 124/81; PULSE 96; TEMP 36.4; O2SAT 95
--- NOTE | 2018-01-15 07:36 | EDITING REQUIRED CODING QUERY ---
CODING QUERY To promote full compliance with coding requirements relating to patient care, provider participation is requested in all cases of transition assistant uncertainty. Please assist us with the question(s) below: Coding Question(s): Acute on Chronic Hypoxic Respiratory Failure is documented in the record and on H&P and several Progress Notes, however, the last Progress Note and Discharge Summary document Acute Respiratory insufficiency. Please clarify below, in your clinical opinion. ( ) Acute on Chronic Hypoxic Respiratory Failure (x ) Acute Respiratory Insufficiency Physician's Response(s): Please note the pulmonology specialists were documenting OMER on every note during this hospitalization, also. thx Thank you Julieth Paniagua Principal Diagnosis: "_that condition established after study, to be chiefly responsible for occasioning the admission of the patient to the hospital for care." Co-Existing Principal Diagnosis: "_when two or more diagnoses equally meet the criteria for principal diagnosis as determined by the circumstances of admission, diagnostic work up, and/or therapy provided, and the Alphabetic Index, Tabular List, or another coding guideline does not provide sequencing direction, any one of the diagnoses may be sequenced first." "When the physician has documented what appears to be a current diagnosis in the body of the record, but has not included the diagnosis in the final diagnostic statement, the physician should be asked whether the diagnosis should be added." (Source [facility]oding [facility] 2 QTR90. p3-4)
--- NOTE | 2018-01-15 07:42 | EDITING REQUIRED CODING QUERY ---
CODING QUERY To promote full compliance with coding requirements relating to patient care, provider participation is requested in all cases of human resources operations specialist uncertainty. Please assist us with the question(s) below: Coding Question(s): The ER H&P documents COPD Exacerbation. COPD Exacerbation is not documented as such in the remainder of the record. Please clarify below, in your clinical opinion. ( ) COPD Exacerbation ( ) COPD without Exacerbation Physician's Response(s): Neither, the patient did not have COPD, she had restrictive lung disease with respiratory insufficiency secondary to her body habitus and possibly her medications, also. Thank you Julieth Paniagua Principal Diagnosis: "_that condition established after study, to be chiefly responsible for occasioning the admission of the patient to the hospital for care." Co-Existing Principal Diagnosis: "_when two or more diagnoses equally meet the criteria for principal diagnosis as determined by the circumstances of admission, diagnostic work up, and/or therapy provided, and the Alphabetic Index, Tabular List, or another coding guideline does not provide sequencing direction, any one of the diagnoses may be sequenced first." "When the physician has documented what appears to be a current diagnosis in the body of the record, but has not included the diagnosis in the final diagnostic statement, the physician should be asked whether the diagnosis should be added." (Source Coding Clinic 2 QTR90. p3-4)
== END 2018-01-10 13:45 | disposition home health service (06) | DRG 206 ==
LOC: EDBD 11:24 → C.EDB 11:25 → C.2T 15:27 → ENRESERV 16:10 → C.MS4W 01-09 17:52
PROVIDERS: ADMIT Hospitalist; ATTEND Hospitalist
DX: E66.2 Morbid (severe) obesity with alveolar hypoventilation (principal); Z68.42 Body mass index [BMI] 45.0-49.9, adult; J96.11 Chronic respiratory failure with hypoxia; N39.0 Urinary tract infection, site not specified; R06.89 Other abnormalities of breathing; T43.95XA Adverse effect of unspecified psychotropic drug, initial encounter; J06.9 Acute upper respiratory infection, unspecified; B96.20 Unspecified Escherichia coli [E. coli] as the cause of diseases classified elsewhere; F43.10 Post-traumatic stress disorder, unspecified; F31.9 Bipolar disorder, unspecified; F41.9 Anxiety disorder, unspecified; E11.65 Type 2 diabetes mellitus with hyperglycemia; I10 Essential (primary) hypertension; K21.9 Gastro-esophageal reflux disease without esophagitis; M79.7 Fibromyalgia; E78.00 Pure hypercholesterolemia, unspecified; Z51.81 Encounter for therapeutic drug level monitoring; Z79.899 Other long term (current) drug therapy; Z79.4 Long term (current) use of insulin; Z99.81 Dependence on supplemental oxygen; Z91.410 Personal history of adult physical and sexual abuse; Z87.01 Personal history of pneumonia (recurrent); Z87.891 Personal history of nicotine dependence; Z88.0 Allergy status to penicillin; Z88.8 Allergy status to other drugs, medicaments and biological substances; Z88.5 Allergy status to narcotic agent; Z88.1 Allergy status to other antibiotic agents; Z82.49 Family history of ischemic heart disease and other diseases of the circulatory system; Z81.8 Family history of other mental and behavioral disorders; Z80.1 Family history of malignant neoplasm of trachea, bronchus and lung; Z82.69 Family history of other diseases of the musculoskeletal system and connective tissue